=== PATIENT | female | born 1960 | race Caucasian/White ===

== ENCOUNTER 2018-09-28 12:49 | Inpatient (IN) | payer BC ==
[~2018-09-28] VITALS: Ht 154.9 cm; Wt 63.0 kg
[2018-09-28] MEDS ORDERED: SOD CHLORIDE 0.9% 500 ML IV STA (13:36)
--- NOTE | 2018-09-28 13:39 | ERD ---
ER Documentation Chief Complaint Chief Complaint mid-AP x5mo, occ NV. jaundice x2wks. 35lbs wt loss since April This is a 58-year-old female who was sent here by Dr. Grullon for admission for painless jaundice. The patient has had painless jaundice for 2 weeks. She says she has right upper quadrant pain for 2 weeks as well and has had some weight loss, she states because she cannot keep food down all the time. She has no coffee-ground emesis or bloody vomit. She says her stools are pale and does have some mild mid back pain ROS All systems reviewed and are negative except as per history of present illness. Medications Home Meds Reported Medications Atorvastatin Calcium* (Atorvastatin Calcium*) 20 Mg Tablet, 20 MG PO QHS, #30 TAB 09/28/18 Metoprolol Succinate* (Toprol XL*) 50 Mg Tab.er.24h, 50 MG PO DAILY, #30 TAB 09/28/18 Insulin Aspart* (Novolog Insulin Pen*) 100 Unit/Ml Soln, 0-12 SC .SLIDING SCALE AC, EA 09/28/18 Insulin Detemir (Levemir) 100 Unit/1 Ml Vial, 30 UNITS SC hs 09/28/18 Metformin* (Glucophage*) 1,000 Mg Tablet, 1000 MG PO BID, #60 TAB 09/28/18 Allergies Allergies: Coded Allergies: morphine (Verified Allergy, Unknown, 09/28/18) Uncoded Allergies: CONTRAST (Allergy, Unknown, 09/28/18) FmHx Family History: No coronary disease Physical Exam Vitals Vital Signs Date Temp Pulse Resp B/P (MAP) Pulse Ox O2 O2 Flow FiO2 Time Delivery Rate 09/28/18 68 18 122/74 99 Room Air 14:32 (90) 09/28/18 98.4 85 18 109/69 100 12:58 (82) Physical Exam Const: Well-developed, well-nourished Head: Atraumatic, normocephalic Eyes: Normal Conjunctiva, PERRLA, EOMI, normal sclera, no nystagmus ENT: Normal External Ears, Nose and Mouth, moist mucus membranes. Neck: Full range of motion. No meningismus, no lymphadenopathy. Resp: Clear to auscultation bilaterally, no wheezing, rhonchi, rales Cardio: Regular rate and rhythm, no murmurs, S1 S2 present Abd: Soft, tender right upper quadrant, non distended. Normal bowel sounds, no guarding or rebound, no pulsitile abdominal masses or bruits Skin: Jaundiced skin] Back: No midline or flank tenderness Ext: No cyanosis, or edema, FROM x 4, normal inspection, neurovascularly intact x 4 Neur: Awake and alert, STR 5/5 x 4, sensation intact x 4, no focal findings, cerebellum intact Psych: Normal Mood and Affect Result Diagram: 09/28/18 1428 09/28/18 1428 Results 24 hrs Laboratory Tests Test 09/28/18 14:28 White Blood Count 8.4 10^3/ul Red Blood Count 3.60 10^6/ul Hemoglobin 10.7 g/dl Hematocrit 32.4 % Mean Corpuscular Volume 90.0 fl Mean Corpuscular Hemoglobin 29.7 pg Mean Corpuscular Hemoglobin Concent 33.0 g/dl Red Cell Distribution Width 15.6 % Platelet Count 541 10^3/UL Mean Platelet Volume 9.5 fl Immature Granulocytes % 0.900 % Neutrophils % 71.2 % Lymphocytes % 20.3 % Monocytes % 6.2 % Eosinophils % 0.8 % Basophils % 0.6 % Nucleated Red Blood Cells % 0.0 /100WBC Immature Granulocytes # 0.080 10^3/ul Neutrophils # 6.0 10^3/ul Lymphocytes # 1.7 10^3/ul Monocytes # 0.5 10^3/ul Eosinophils # 0.1 10^3/ul Basophils # 0.1 10^3/ul Nucleated Red Blood Cells # 0.0 10^3/ul Prothrombin Time 19.6 Sec Prothrombin Time Ratio 1.5 INR International Normalized Ratio 1.65 Activated Partial Thromboplast Time 43.1 Sec Sodium Level 139 mmol/L Potassium Level 3.9 mmol/L Chloride Level 104 mmol/L Carbon Dioxide Level 25 mmol/L Anion Gap 10 Blood Urea Nitrogen 13 mg/dl Creatinine 0.45 mg/dl Est Glomerular Filtrat Rate mL/min > 60 mL/min Glucose Level 157 mg/dl Calcium Level 9.1 mg/dl Total Bilirubin 4.4 mg/dl Direct Bilirubin 3.60 mg/dl Indirect Bilirubin 0.8 mg/dl Aspartate Amino Transf (AST/SGOT) 117 IU/L Alanine Aminotransferase (ALT/SGPT) 76 IU/L Alkaline Phosphatase 726 IU/L Total Protein 8.1 g/dl Albumin 3.3 g/dl Globulin 4.80 g/dl Albumin/Globulin Ratio 0.68 Lipase 220 U/L Current Medications Medications Dose Sig/Miriam Start Time Status Last (Trade) Ordered Route PRN Stop Time Admin Dose Reason Admin Sodium 500 ml @ Q1H STAT 09/28/18 DC 09/28/18 Chloride 500 mls/hr IV 13:36 09/28/18 14:29 14:35 25 mg ONCE ONCE 09/28/18 DC 09/28/18 Diphenhydrami IV 16:00 09/28/18 15:39 ne HCl 16:01 (Benadryl) Procedures/MDM PROCEDURE: Right upper quadrant sonogram CLINICAL INDICATION: Pain TECHNIQUE: Transabdominal scans and Doppler images are reviewed COMPARISON: None FINDINGS: The liver is enlarged measuring 19 cm with mild increased echogenicity correlate with fatty changes. The pancreas is obscured by overlying gas artifact. There is no focal mass or biliary distension. Doppler assessment of the portal and hepatic vein visualize normal blood flow. Gallbladder is nondistended, limiting detail. There are no focal filling defects or wall thickening. The common bile duct measures 3.1 mm. The right kidney is normal in morphology and measures 10.6 x 3.4 x 4.6 cm. There is no obstructive uropathy or perinephric abnormality. IMPRESSION: 1. Hepatomegaly with fatty liver changes. RPTAT: HPPP Physician Deidra Date Time Electronically viewed and signed by Gloria Chang Physician on 09/28/2018 15:24 RP/ CC: HÉCTOR FAJARDO DO [id number] Dr Andino saw patient in the ER Pt refused MRCP ordered in he ER Will admit to Dr Craig Departure Diagnosis: Primary Impression: Jaundice Condition: Stable HÉCTOR FAJARDO DO Sep 28, 2018 13:39
[2018-09-28] MEDS ORDERED: METO-319 PO (14:29)
[2018-09-28] MEDS ORDERED: ATOR20TA38 PO (14:29)
[2018-09-28] MEDS ORDERED: NOVO3I SC (14:29)
[2018-09-28] MEDS ORDERED: MTF1000T PO (14:29)
[2018-09-28] MEDS ORDERED: LEVEM SC (14:29)
[2018-09-28] MEDS ORDERED: DIPHENHYDRAMINE 50 MG INJ IV ONE (16:00)
[2018-09-28] MEDS ORDERED: SOD CHLORIDE 0.9% 1,000 ML IV SCH (16:28)
[2018-09-28] MEDS ORDERED: ONDANSETRON 4 MG INJ IV PRN ×2 (16:30→19:00)
[2018-09-28] MEDS ORDERED: ACETAMINOPHEN 325 MG TAB PO PRN (16:30)
[2018-09-28 17:50] VITALS: BP 135/66; PULSE 69; RESP 18
--- NOTE | 2018-09-28 18:38 | HP ---
Date/Time of Note Date/Time of Note DATE: 09/28/18 TIME: 18:32 Assessment/Plan VTE Prophylaxis SCD applied (from Nsg): Yes Pharmacological prophylaxis: NA/contraindicated Pharm contraindication: liver dx Lines/Catheters IV Catheter Type (from Nrsg): Saline Lock Assessment/Plan Assessment/Plan -New onset of Jaundice with elevated liver enzymes. Dr. Estrada is asked to see patient in gastroenterology consultation. Dr. Harris will be following in general surgery consultation. -Diabetes mellitus -Hypertension -Hyperlipidemia Further recommendations based on clinical course. Plan of care discussed with Dr. Rizzo. Result Diagram: 09/28/18 1428 09/28/18 1428 Results 24hrs Laboratory Tests Test 09/28/18 14:28 White Blood Count 8.4 Red Blood Count 3.60 L Hemoglobin 10.7 L Hematocrit 32.4 L Mean Corpuscular Volume 90.0 Mean Corpuscular Hemoglobin 29.7 Mean Corpuscular Hemoglobin Concent 33.0 Red Cell Distribution Width 15.6 H Platelet Count 541 H Mean Platelet Volume 9.5 Immature Granulocytes % 0.900 H Neutrophils % 71.2 Segmented Neutrophils % (Manual) 76 Lymphocytes % 20.3 Lymphocytes % (Manual) 14 L Monocytes % 6.2 Monocytes % (Manual) 8 Eosinophils % 0.8 Eosinophils % (Manual) 2 Basophils % 0.6 Nucleated Red Blood Cells % 0.0 Immature Granulocytes # 0.080 H Neutrophils # 6.0 Lymphocytes (Manual) 1.1 Lymphocytes # 1.7 Monocytes # 0.5 Monocytes # (Manual) 0.6 Eosinophils # 0.1 Basophils # 0.1 Nucleated Red Blood Cells # 0.0 Platelet Morphology Comment @See below Anisocytosis 2+ Macrocytosis 2+ Prothrombin Time 19.6 H Prothrombin Time Ratio 1.5 INR International Normalized Ratio 1.65 Activated Partial Thromboplast Time 43.1 H Sodium Level 139 Potassium Level 3.9 Chloride Level 104 Carbon Dioxide Level 25 Anion Gap 10 Blood Urea Nitrogen 13 Creatinine 0.45 Est Glomerular Filtrat Rate mL/min > 60 Glucose Level 157 Calcium Level 9.1 Total Bilirubin 4.4 H Direct Bilirubin 3.60 H Indirect Bilirubin 0.8 Aspartate Amino Transf (AST/SGOT) 117 H Alanine Aminotransferase (ALT/SGPT) 76 H Alkaline Phosphatase 726 H Total Protein 8.1 Albumin 3.3 Globulin 4.80 H Albumin/Globulin Ratio 0.68 Lipase 220 HPI/ROS Admit Date/Time Admit Date/Time Sep 28, 2018 at 16:29 Hx of Present Illness The patient is a 58-year-old female with history of hypertension hyperlipidemia and diabetes. Patient was evaluated in Dr. Harris office sent to emergency room for painless jaundice. Patient developed jaundice of the last 2- weeks, patient is also complaining of 5 months of epigastric abdominal pain and 35 pounds of weight lost since April. Patient denies any fever denies any chest pain denies shortness of breath patient denies any nausea vomiting diarrhe a. Patient underwent gallbladder ultrasound which revealed hepatomegaly with fatty liver changes. ROS 12 point review of system is negative except for what mentioned in HPI PMH/Family/Social Past Medical History Medical History: diabetes, high cholesterol, hypertension Medications Current Medications Sodium Chloride 1,000 ml @ 80 mls/hr [id number] IV ; Start 09/28/18 at 16:28; Stop 09/29/18 at 04:57 Ondansetron HCl (Zofran Inj) 4 mg BRIDGE ORDER PRN IV NAUSEA/VOMITING; Start 09/28/18 at 16:30; Stop 09/29/18 at 16:29 Acetaminophen (Tylenol Tab) 650 mg ER BRIDGE PRN PO .MILD PAIN 1-3 OR TEMP; Start 09/28/18 at 16:30; Stop 09/29/18 at 16:29 Coded Allergies: morphine (Verified Allergy, Unknown, 09/28/18) Uncoded Allergies: CONTRAST (Allergy, Unknown, 09/28/18) Past Surgical History Past Surgical Hx: other (Status post right eye surgery, s/p ERCP and stent placement in april 2018) Family History Significant Family History: no pertinent family hx Social History Alcohol Use: none Smoking Status: Current every day smoker Drug Use: none Exam/Review of Systems Vital Signs Vitals Vital Signs Date Temp Pulse Resp B/P (MAP) Pulse Ox O2 O2 Flow FiO2 Time Delivery Rate 09/28/18 98.4 81 18 138/68 99 Room Air 17:05 (91) Exam Constitutional: alert, oriented Head: normocephalic Neck: supple Respiratory: clear to auscultation Cardiovascular: nl pulses Gastrointestinal: soft, tender (Mid upper abdomen) Musculoskeletal: nl extremities to inspection Extremities: normal pulses EDWIN OCHOA Sep 28, 2018 18:38
[2018-09-28] MEDS ORDERED: GLUCAGON 1 MG INJ IM PRN (19:00)
[2018-09-28] MEDS ORDERED: GLUCOSE GEL 15 GRAM TUBE BUCCAL PRN (19:00)
[2018-09-28] MEDS ORDERED: GLUCOSE GEL 15 GRAM TUBE PO PRN ×2 (19:00)
[2018-09-28] MEDS ORDERED: DEXTROSE 50% 50 ML SYRINGE IV PRN (19:00)
[2018-09-28 20:52] VITALS: BP 132/65; PULSE 56; RESP 20
[2018-09-28 21:00] VITALS: Ht 154.9 cm; Wt 63.0 kg
[2018-09-28] MEDS: INSULIN ASPART [NOVOLOG] 3 ML PEN SC SCH (21:00)
[2018-09-28] MEDS: FAMOTIDINE 20 MG TAB PO SCH (22:35)
[2018-09-28] MEDS: INSULIN GLARGINE [LANTus] (100 UNITS/ML) SYG SC SCH (22:37)
[2018-09-28] MEDS: IBUPROFEN 600 MG TAB PO PRN (23:07)
[2018-09-29] MEDS: ACCU-CHEK XX SCH (02:00)
[2018-09-29 02:52] VITALS: BP 134/65; PULSE 56; RESP 20
[2018-09-29] MEDS: INSULIN ASPART [NOVOLOG] 3 ML PEN SC SCH ×4 (08:00→21:00)
[2018-09-29] MEDS: FAMOTIDINE 20 MG TAB PO SCH ×2 (08:36→21:04)
[2018-09-29] MEDS: METOPROLOL (XL) 50 MG TAB PO SCH (08:38)
[2018-09-29 08:39] VITALS: BP 129/60; PULSE 53; RESP 18
[2018-09-29] MEDS: DIPHENHYDRAMINE 25 MG CAP PO PRN ×2 (10:20→22:42)
[2018-09-29 14:28] VITALS: BP 132/62; PULSE 56; RESP 18
--- NOTE | 2018-09-29 15:12 | PREAC ---
Date/Time of Note Date/Time of Note DATE: 09/29/18 TIME: 15:08 Anesthesia Eval and Record Evaluation Time Pre-Procedure Interview DATE: 09/29/18 TIME: 15:08 Age 58 Sex female NPO: 8 hrs Preoperative diagnosis Jaundice Planned procedure ERCP W/ SPYGLASS Past Medical History Past Medical History: Includes Cardio: HTN, Dyslipidemia Endo: Diabetes Surgery & Anesthesia Issues No known issue Meds Anticoagulation: No Beta Tyron within 24 hr: No Reason Beta Tyron not given: Pt. not on B-Tyron Reported Medications Atorvastatin Calcium* (Atorvastatin Calcium*) 20 Mg Tablet, 20 MG PO QHS, #30 TAB 09/28/18 Metoprolol Succinate* (Toprol XL*) 50 Mg Tab.er.24h, 50 MG PO DAILY, #30 TAB 09/28/18 Insulin Aspart* (Novolog Insulin Pen*) 100 Unit/Ml Soln, 0-12 SC .SLIDING SCALE AC, EA 09/28/18 Insulin Detemir (Levemir) 100 Unit/1 Ml Vial, 30 UNITS SC hs 09/28/18 Metformin* (Glucophage*) 1,000 Mg Tablet, 1000 MG PO BID, #60 TAB 09/28/18 Current Medications Ondansetron HCl (Zofran Inj) 4 mg Q6H PRN IV NAUSEA/VOMITING; Start 09/28/18 at 19:00 Ibuprofen (Motrin) 600 mg Q6H PRN PO .PAIN 1-3 Last administered on 09/28/18at 23:07; Admin Dose 600 MG; Start 09/28/18 at 19:00 Famotidine (Pepcid) 20 mg Q12 PO Last administered on 09/29/18at 08:36; Admin Dose 20 MG; Start 09/28/18 at 21:00 Metoprolol Succinate (Toprol Xl) 50 mg DAILY PO Last administered on 09/29/18at 08:38; Admin Dose 50 MG; Start 09/29/18 at 09:00 Diagnostic Test (Pha) (Accu-Chek) 1 ea 02 XX ; Start 09/29/18 at 02:00 Insulin Glargine (Lantus) 30 units DAILY@2000 SC Last administered on 09/28/18at 22:37; Admin Dose 30 UNITS; Start 09/28/18 at 20:00 Insulin Aspart (Novolog Insulin Pen) NOVOLOG *MILD* ALGORITHM WITH MEALS BEDTIME SC Last administered on 09/29/18at 11:54; Admin Dose 2 UNIT; Start 09/28/18 at 21:00 Miscellaneous Information 1 ea NOTE XX ; Start 09/28/18 at 19:00 Glucose (Glutose) 15 gm Q15M PRN PO DECREASED GLUCOSE; Start 09/28/18 at 19:00 Glucose (Glutose) 22.5 gm Q15M PRN PO DECREASED GLUCOSE; Start 09/28/18 at 19:00 Dextrose (D50w Syringe) 25 ml Q15M PRN IV DECREASED GLUCOSE; Start 09/28/18 at 19:00 Dextrose (D50w Syringe) 50 ml Q15M PRN IV DECREASED GLUCOSE; Start 09/28/18 at 19:00 Glucagon (Glucagen) 1 mg Q15M PRN IM DECREASED GLUCOSE; Start 09/28/18 at 19:00 Glucose (Glutose) 15 gm Q15M PRN BUCCAL DECREASED GLUCOSE; Start 09/28/18 at 19:00 Diphenhydramine HCl (Benadryl) 25 mg Q6H PRN PO ITCHING Last administered on 09/29/18at 10:20; Admin Dose 25 MG; Start 09/28/18 at 23:30 Meds reviewed: Yes Allergies Coded Allergies: morphine (Verified Allergy, Unknown, 09/28/18) Uncoded Allergies: CONTRAST (Allergy, Unknown, 09/28/18) Allergies Reviewed: Yes Labs/Studies Labs Reviewed: Reviewed by anesthesiologist Result Diagram: 09/29/18 0451 09/29/18 0451 Laboratory Tests 09/29/18 04:51 test: N/A Pre-procedure Exam Last vitals Vital Signs Date Temp Pulse Resp B/P (MAP) Pulse Ox O2 O2 Flow FiO2 Time Delivery Rate 09/29/18 97.9 56 18 132/62 98 Room Air 14:28 (85) Airway: Adequate mouth opening Mallampati: Mallampati II Teeth: Normal Lung: Normal Heart: Normal ASA Physical Status ASA physical status: 3 Emergency: None Planned Anesthetic General/MAC: ETT Pre-operative Attestations Prior to commencing anesthesia and surgery, the patient was re-evaluated, there was verification of: *The patient's identity *The results of appropriate recent lab work and preoperative vital signs *The above evaluation not changing prior to induction *Anesthetic plan, risk benefits, alternative and complications discussed with patient/family; questions answered; patient/family understands, accepts and wishes to proceed. LEONEL GARCIA Sep 29, 2018 15:12
--- NOTE | 2018-09-29 16:20 | PN ---
Date/Time of Note Date/Time of Note DATE: 09/29/18 TIME: 16:17 Assessment/Plan VTE Prophylaxis Risk score (from [facility] [place])>0 risk: 6 SCD applied (from [facility] [place]): Yes Pharmacological prophylaxis: NA/contraindicated Pharm contraindication: liver dx Lines/Catheters IV Catheter Type (from [facility]): Saline Lock Assessment/Plan Hospital Course No acute events overnight patient is awake alert denies any nausea and vomiting, patient will undergo ERCP procedure tomorrow. Assessment/Plan -New onset of Jaundice. Dr. Estrada is following in gastroenterology consultation. Dr. Harris and Dr Main are following in general surgery consultation. -Hx of ERCP and stent placement in April 2018 at another facility. -Diabetes mellitus -Hypertension -Hyperlipidemia Further recommendations based on clinical course. Plan of care discussed with Dr. Rizzo. Result Diagram: 09/29/18 0451 09/29/18 0451 Results 24hrs Laboratory Tests Test 09/28/18 22:33 09/29/18 04:51 09/29/18 08:35 09/29/18 11:43 Bedside Glucose 159 98 195 White Blood Count 7.3 Red Blood Count 3.59 L Hemoglobin 10.8 L Hematocrit 33.0 L Mean Corpuscular Volume 91.9 Mean Corpuscular 30.1 Hemoglobin Mean Corpuscular 32.7 Hemoglobin Concent Red Cell Distribution 16.1 H Width Platelet Count 517 H Mean Platelet Volume 10.0 Immature Granulocytes % 0.700 H Neutrophils % 69.6 Lymphocytes % 19.7 Monocytes % 8.0 Eosinophils % 1.4 Basophils % 0.6 Nucleated Red Blood 0.0 Cells % Immature Granulocytes # 0.050 H Neutrophils # 5.1 Lymphocytes # 1.4 Monocytes # 0.6 Eosinophils # 0.1 Basophils # 0.0 Nucleated Red Blood 0.0 Cells # Sodium Level 145 H Potassium Level 4.5 Chloride Level 106 Carbon Dioxide Level 26 Anion Gap 13 Blood Urea Nitrogen 11 Creatinine 0.53 Est Glomerular Filtrat > 60 Rate mL/min Glucose Level 93 # Hemoglobin A1c 6.1 H Calcium Level 9.3 Total Bilirubin 4.8 H Direct Bilirubin 3.80 H Indirect Bilirubin 1.0 Aspartate Amino 109 H Transf (AST/SGOT) Alanine 76 H Aminotransferase (ALT/SG PT) Alkaline Phosphatase 784 H Total Protein 8.3 H Albumin 3.2 L Globulin 5.10 H Albumin/Globulin Ratio 0.62 Triglycerides Level 381 H Cholesterol Level 276 H LDL Cholesterol, 179 Calculated HDL Cholesterol 21 L Cholesterol/HDL Ratio 13.1 Exam/Review of Systems Exam Vitals Vital Signs Date Temp Pulse Resp B/P (MAP) Pulse Ox O2 O2 Flow FiO2 Time Delivery Rate 09/29/18 97.9 56 18 132/62 98 Room Air 14:28 (85) Intake and Output 09/28/18 09/28/18 09/29/18 1515:00 23:00 07:00 IntakeIntake Total 500 ml BalanceBalance 500 ml Constitutional: alert, oriented, other (jaundiced) Respiratory: clear to auscultation Cardiovascular: nl pulses Gastrointestinal: soft, tender Musculoskeletal: nl extremities to inspection Extremities: normal pulses Neurological: nl mental status Results Results 24hrs Laboratory Tests Test 09/28/18 22:33 09/29/18 04:51 09/29/18 08:35 09/29/18 11:43 Bedside Glucose 159 98 195 White Blood Count 7.3 Red Blood Count 3.59 L Hemoglobin 10.8 L Hematocrit 33.0 L Mean Corpuscular Volume 91.9 Mean Corpuscular 30.1 Hemoglobin Mean Corpuscular 32.7 Hemoglobin Concent Red Cell Distribution 16.1 H Width Platelet Count 517 H Mean Platelet Volume 10.0 Immature Granulocytes % 0.700 H Neutrophils % 69.6 Lymphocytes % 19.7 Monocytes % 8.0 Eosinophils % 1.4 Basophils % 0.6 Nucleated Red Blood 0.0 Cells % Immature Granulocytes # 0.050 H Neutrophils # 5.1 Lymphocytes # 1.4 Monocytes # 0.6 Eosinophils # 0.1 Basophils # 0.0 Nucleated Red Blood 0.0 Cells # Sodium Level 145 H Potassium Level 4.5 Chloride Level 106 Carbon Dioxide Level 26 Anion Gap 13 Blood Urea Nitrogen 11 Creatinine 0.53 Est Glomerular Filtrat > 60 Rate mL/min Glucose Level 93 # Hemoglobin A1c 6.1 H Calcium Level 9.3 Total Bilirubin 4.8 H Direct Bilirubin 3.80 H Indirect Bilirubin 1.0 Aspartate Amino 109 H Transf (AST/SGOT) Alanine 76 H Aminotransferase (ALT/SG PT) Alkaline Phosphatase 784 H Total Protein 8.3 H Albumin 3.2 L Globulin 5.10 H Albumin/Globulin Ratio 0.62 Triglycerides Level 381 H Cholesterol Level 276 H LDL Cholesterol, 179 Calculated HDL Cholesterol 21 L Cholesterol/HDL Ratio 13.1 Medications Medication Current Medications Ondansetron HCl (Zofran Inj) 4 mg Q6H PRN IV NAUSEA/VOMITING; Start 09/28/18 at 19:00 Ibuprofen (Motrin) 600 mg Q6H PRN PO .PAIN 1-3 Last administered on 09/28/18at 23:07; Admin Dose 600 MG; Start 09/28/18 at 19:00 Famotidine (Pepcid) 20 mg Q12 PO Last administered on 09/29/18at 08:36; Admin Dose 20 MG; Start 09/28/18 at 21:00 Metoprolol Succinate (Toprol Xl) 50 mg DAILY PO Last administered on 09/29/18 08:38; Admin Dose 50 MG; Start 09/29/18 at 09:00 Diagnostic Test (Pha) (Accu-Chek) 1 ea 02 XX ; Start 09/29/18 at 02:00 Insulin Glargine (Lantus) 30 units DAILY@2000 SC Last administered on 09/28/18at 22:37; Admin Dose 30 UNITS; Start 09/28/18 at 20:00 Insulin Aspart (Novolog Insulin Pen) NOVOLOG *MILD* ALGORITHM WITH MEALS BEDTIME SC Last administered on 09/29/18at 11:54; Admin Dose 2 UNIT; Start 09/28/18 at 21:00 Miscellaneous Information 1 ea NOTE XX ; Start 09/28/18 at 19:00 Glucose (Glutose) 15 gm Q15M PRN PO DECREASED GLUCOSE; Start 09/28/18 at 19:00 Glucose (Glutose) 22.5 gm Q15M PRN PO DECREASED GLUCOSE; Start 09/28/18 at 19:00 Dextrose (D50w Syringe) 25 ml Q15M PRN IV DECREASED GLUCOSE; Start 09/28/18 at 19:00 Dextrose (D50w Syringe) 50 ml Q15M PRN IV DECREASED GLUCOSE; Start 09/28/18 at 19:00 Glucagon (Glucagen) 1 mg Q15M PRN IM DECREASED GLUCOSE; Start 09/28/18 at 19:00 Glucose (Glutose) 15 gm Q15M PRN BUCCAL DECREASED GLUCOSE; Start 09/28/18 at 19:00 Diphenhydramine HCl (Benadryl) 25 mg Q6H PRN PO ITCHING Last administered on 09/29/18at 10:20; Admin Dose 25 MG; Start 09/28/18 at 23:30 EDWIN OCHOA Sep 29, 2018 16:20
[2018-09-29] MEDS: IBUPROFEN 600 MG TAB PO PRN (17:36)
[2018-09-29] MEDS ORDERED: PHYTONADIONE 10 MG/ML INJ SC STA (19:05)
--- NOTE | 2018-09-29 19:45 | CONS ---
DATE OF ADMISSION: 09/28/2018 DATE OF CONSULTATION: HISTORY OF PRESENT ILLNESS: The patient is a 58-year-old female with a history of hypertension, diab etes mellitus, dyslipidemia, was sent from Dr. Harris office to the ER for jaundice and significant we ight loss. Patient lost 35 pounds. She denies of any fever, no chills. No or ADMIN PROG COORD problem. No G I bleeding. No abdominal pain. REVIEW OF SYSTEMS: Otherwise negative. PAST MEDICAL HISTORY: I reviewed her chart extensively. She had a EUS, ERCP and stenting done at [facility]. During the process of ERCP, SpyGlass was done. SpyBite was obtained and she had atypical cells. There was a stricture in the common hepatic duct and plastic stent was placed. Cystic duct was blocked and the cytology came as atypical cells. The patient had a 2 MRI done. Gall bladder ultrasound done. Ultrasound just showed fatty liver. Questionable lesion in the liver. SOCIAL HISTORY: She smokes on a regular basis. No alcohol, no recreational drugs. PHYSICAL EXAMINATION: GENERAL: Alert, awake, not in distress. VITAL SIGNS: Stable. HEENT: Unremarkable. NECK: Supple. No thyromegaly, no lymphadenopathy. CARDIOVASCULAR SYSTEM: No murmur, gallop or click. LUNGS: Clear. ABDOMEN: Benign. EXTREMITIES: No edema. CENTRAL NERVOUS SYSTEM: Grossly within normal limits. LABORATORY DATA: Hematocrit is 32. WBC is within normal limits. Her bilirubin was 4.8, I do not collins ve previous bilirubin. Alkaline phosphatase was 784. SGOT and SGPT mildly elevated. Triglyceride a lso was elevated at 381. Hemoglobin A1c was 6.1. INR was reported as 1.65. IMPRESSION 1. Abnormal LFT with significant weight loss, most probably related to her either gallbladder or cho langiocarcinoma. 2. Abnormal LFT could be secondary to mets in the liver. Again, the blockage of the stent cannot be absolutely ruled out. 3. Diabetes mellitus. 4. Hypertension. 5. Nicotine usage. PLAN: At this point, is to correct the coagulopathy. We will get a HIDA scan to look at the patency by a stent. We will do liver biopsy to make sure there is no mets in the liver. We will also get o ncology consult. I ordered vitamin K to correct the coagulopathy. If INR is still prolonged, we thanh l do ____. This case was discussed with Dr. Santy Main and I have reviewed all the paperwork exte nsively. Dictated By: REBECCA DODGE/ROSALIE Conf#: [id number] DID#: [id number] CC: MARY ENGLE MD;*EndCC*
[2018-09-29 20:18] VITALS: BP 129/60; PULSE 59; RESP 18
--- NOTE | 2018-09-29 20:23 | CONS ---
DATE OF ADMISSION: 09/28/2018 DATE OF CONSULTATION: 09/29/2018 TYPE OF CONSULTATION: Surgical. REQUESTING: Medical Service. REASON FOR CONSULTATION: Jaundice, possible tumor in the biliary tree. Thank you Dr. Engle for consultation. Actually this patient to begin was referred to the emergency room by Dr. Harris from his office for evaluation and possible management of cause of the jaundice. The patient has been suffering for past 2 to 3 weeks. HISTORY OF PRESENT ILLNESS: The patient actually complains of jaundice and itching for about 3 weeks and abdominal epigastric pain, which has been aggravated in the past 2 to 3 weeks, but has been going on for about 4, 5 or 6 months. PAST MEDICAL HISTORY: Positive for diabetes mellitus. The patient is on insulin and metformin, hypertension which the patient is taking 2 medications for that, and history of dyslipidemia. FAMILY HISTORY: Unremarkable. Negative for cancer. ALLERGIES: MORPHINE AND CONTRAST MATERILA. The patient states that after getting contrast material she gets itching for about 1 week. MEDICATIONS: Please refer to reconciliation list. PHYSICAL EXAMINATION: GENERAL: The patient is obviously jaundiced. SKIN: The skin is loose. HEENT: Sclerae are yellowish. EYES: Pupils equally round, reactive to light and accommodative. Extraocular muscle full range of motion. NECK: Trachea is midline. No thyroid enlargement. No adenopathy. CHEST: Symmetrical expansion. HEART: Regular. LUNGS: Clear. ABDOMEN: Not distended, is soft. In the epigastric area, there is tenderness, soft, mild pressure. Question, there is a mass in the epigastric area the patient by taking deep breaths. One can feel probably in the right upper quadrant medial side and some fullness can be felt. LABORATORY DATA: On admission, WBC was 8400, hemoglobin 10.7, hematocrit 32.4. Platelet count is 541. She is fine. Differential is 71% neutrophils, which is normal. Anisocytosis and macrocytosis is present in the Hematology. Chemistry on admission yesterday sodium, potassium, BUN, creatinine is normal. Calcium is 9.1. Total bilirubin is 4.4. Direct bilirubin is 3.6, which is high. AST is 117, which is high. AST is 76. Alkaline phosphatase is very high 726. Globulin is 4.80, which is high. Albumin is 3.3. Lipase is 220, which is normal. Hemoglobin A1c today is 6.1. Bilirubin slightly has increased to 4.8 today. Globulin has increased to 5.1, which is higher than yesterday. Triglycerides is 381, which is high. Cholesterol is high at 276. HDL cholesterol is very low at 21. IMAGING STUDIES: Imaging was done yesterday. Ultrasound of gallbladder shows hepatomegaly with fatty liver changes. No other abnormalities was reported. Abdominal x-ray was ordered and was done today showed nonspecific bowel gas pattern without evidence of obstruction. Moderate to large amount of stool in the colon. A stent projecting over the right abdomen which may represent the CBD stent. 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 She stated that in 03/2018, she had tachycardia and palpitation and for that reason was being seen by her physician and PCP, and PCP notified her that there is some abnormality in the liver enzymes. Therefore, the patient was referred to the [facility] and over there was admitted and they did some more investigation at that time, which is in 04/27/2018. An endoscopic ultrasound was performed by Dr. Olivera in this patient and the following was reported: 1. Small and contracted gallbladder with a sludge. 2. Thick wall and no visible gallbladder tumor. 3. Abnormal common hepatic duct without dilatation has a thick wall and no stone disease. 4. Fatty liver. Therefore, ERCP was recommended, and 2 days before that a CT scan of the abdomen and pelvis was done which showed irregularities of gallbladder with likely mass and adjacent common hepatic duct enhancing wall, suspicious for malignancy or cholangitis. That is why the patient underwent endoscopic ultrasound and then after that they recommended ERCP. An ERCP was performed by Dr. Perez and his daughter that time and he did a sphincterotomy and brushing of the narrowing area of the common hepatic duct and placement of a stent while passing this narrowing area. Of course, balloon dilatation also has been done and a biliary stent was placed. Before that cholangiography was performed and biopsy of the common hepatic duct was performed. Later on pathology report atypical cells present. No malignancy was identified. On the ERCP, it showed that the cystic duct was occluded question of gallbladder mass. Eventually, on the 04/29/2018, the patient was discharged home with the diagnosis of history of high blood pressure and history of diabetes mellitus, and status post ERCP. Endoscopy showed no possible malignancy of the common hepatic duct, possible malignancy of the gallbladder. The patient was supposed to be seen by Dr. Olivera after 1 week, but reportedly Dr. Olivera is not taking the kind of insurance that the patient has, therefore, the patient was left to the care of the primary care physician. The primary care physician referred the patient to Dr. Harris' office and Dr. Harris in 07/2018, send the patient for MRCP. MRCP on 07/27/2018 was performed and is reported gallstone, contracted gallbladder, left main hepatic duct 6 mm slightly dilated, comparing to before which was 2 mm, a small filling defects in the left main hepatic duct, possibly pneumobilia due to presence of a stent. Then, on the 08/10/2018, an MRI was performed per request of Dr. Harris that showed 2 possible small ring enhancing lesions seen in adjacent to the gallbladder fossa, possible metastatic lesions. Then, a PET CT scan was performed on 09/20/2018, and it was read with comparison to the MRI and MRCP and PET CT scan which had been done in 2018. The following reports there is a small anterior cardiophrenic lymph node 1.1 cm in size. CONCLUSION: 1. Persistent abnormal contrast accumulation into either the gallbladder or gallbladder fossa consistent with neoplastic process. 2. Abnormal FDG which is the contrast accumulation involving the anterior aspect of the liver right and left lobes, worrisome for neoplastic infiltration of the liver. 3. Small anterior cardiophrenic lymph node, which is a new finding may be metastatic in nature. A stent in place. But the patient states that she never noticed jaundice before 3 weeks ago and actually she claims and states that since they did an ERCP and sphincterotomy and they put a stent for her, she got worse and she has more pain in the epigastric and right upper quadrant. She has lost her appetite and she cannot eat even anymore that much of food. She has lost 35 pounds of weight. Therefore, at this time we are having a patient who has a stent and even though with a stent she has developed jaundice. This raises the question of whether the stent has fallen off. The recent PET CT shows that the stent is in place and also a simple KUB showed the stent is in place almost. Therefore, the stent could be clogged or could be infiltration of some kind of infiltrative process and lesion in the whole liver is causing the obstruction of the micro biliary duct and causing obstructive type of jaundice. Therefore, we recommend that the following to be done for this patient: 1. GI consultation. 2. HIDA scan. 3. MRCP. 4. I think the patient needs a biopsy of the liver also be done to find out if what kind of pathology we are getting in the liver itself. I discussed the whole process and findings of this patient with Dr. Harris, and he also agrees with the plan of action. Also, it should be mentioned that the patient's PT and PTT is very abnormal, and our colleague, Dr. Estrada, has seen the patient and apparently has scheduled the patient for ERCP. I will call him and let him know that the patient's PT and PTT is abnormal. Thank you again for consultation. We are going to continue to follow the surgical team, follow up this patient to find out exactly what is the pathology involving the liver and biliary tree system in this patient and what surgically can be done if anything for this patient. Dictated By: RENITA VIRK MD PS/NTS Conf#: [id number] DID#: [id number] CC: MARY ENGLE MD;*EndCC* MTDD
[2018-09-29] MEDS: INSULIN GLARGINE [LANTus] (100 UNITS/ML) SYG SC SCH (21:08)
[2018-09-30] MEDS: ACCU-CHEK XX SCH (02:00)
[2018-09-30 02:10] VITALS: BP 138/71; PULSE 65; RESP 18
[2018-09-30] MEDS: INSULIN ASPART [NOVOLOG] 3 ML PEN SC SCH ×5 (08:00→20:39)
[2018-09-30] MEDS: FAMOTIDINE 20 MG TAB PO SCH ×2 (08:32→20:38)
[2018-09-30] MEDS: METOPROLOL (XL) 50 MG TAB PO SCH (08:32)
[2018-09-30 08:37] VITALS: BP 127/64; PULSE 60; RESP 18
--- NOTE | 2018-09-30 10:37 | PN ---
Date/Time of Note Date/Time of Note DATE: 09/30/18 TIME: 10:37 Assessment/Plan VTE Prophylaxis Risk score (from Ns)>0 risk: 1 SCD applied (from [facility] [place]): Yes Pharmacological prophylaxis: other Pharm contraindication: other Lines/Catheters IV Catheter Type (from [facility]): Saline Lock Assessment/Plan Assessment/Plan -Jaundice. - per Dr. Estrada in gastroenterology consultation- for HIDA scan today; fu results - per Dr. Harris in general surgery consultation. - Abnormal Abdominal MRI - Poorly defined mass-like area is seen in the region of the biliary confluence, concerning for neoplasm, suboptimally evaluated without IV contrast. This mass causes obstruction at the level of the biliary confluence, with mild to moderate dilatation of intrahepatic biliary ducts proximally. - Gallbladder is not well visualized. Contrast enhanced CT is recommended for further evaluation. - Oncology consultation appreciated -Diabetes mellitus - Glycemic control -Hypertension- stable -Hyperlipidemia Further recommendations based on clinical course. Plan of care discussed with Dr. Rizzo. Result Diagram: 09/29/1845009/29/18450 Results 24hrs Laboratory Tests Test 09/29/18 11:43 09/29/18 17:31 09/29/18 21:00 09/30/18 05:01 Bedside Glucose 195 184 161 Prothrombin Time 15.9 H Prothrombin Time Ratio 1.2 INR International 1.26 Normalized Ratio Activated 38.7 H Partial Thromboplast Time Test 09/30/18 08:34 Bedside Glucose 87 Subjective 24 Hr Interval Summary Free Text/Dictation -NAD - afebrile -off floor- gone for HIDA SCAN - no new events reported overnight - staff Exam/Review of Systems Exam Vitals Vital Signs Date Temp Pulse Resp B/P (MAP) Pulse Ox O2 O2 Flow FiO2 Time Delivery Rate 09/30/18 98.0 60 18 127/64 99 Room Air 08:37 (85) Intake and Output 09/29/18 09/29/18 09/30/18 1515:00 23:00 07:00 IntakeIntake Total 640 ml 860 ml BalanceBalance 640 ml 860 ml Results Results 24hrs Laboratory Tests Test 09/29/18 11:43 09/29/18 17:31 09/29/18 21:00 09/30/18 05:01 Bedside Glucose 195 184 161 Prothrombin Time 15.9 H Prothrombin Time Ratio 1.2 INR International 1.26 Normalized Ratio Activated 38.7 H Partial Thromboplast Time Test 09/30/18 08:34 Bedside Glucose 87 Medications Medication Current Medications Ondansetron HCl (Zofran Inj) 4 mg Q6H PRN IV NAUSEA/VOMITING; Start 09/28/18 at 19:00 Ibuprofen (Motrin) 600 mg Q6H PRN PO .PAIN 1-3 Last administered on 09/29/18 17:36; Admin Dose 600 MG; Start 09/28/18 at 19:00 Famotidine (Pepcid) 20 mg Q12 PO Last administered on 09/29/18 21:04; Admin Dose 20 MG; Start 09/28/18 at 21:00 Metoprolol Succinate (Toprol Xl) 50 mg DAILY PO Last administered on 09/29/18 08:38; Admin Dose 50 MG; Start 09/29/18 at 09:00 Insulin Glargine (Lantus) 30 units DAILY@2000 SC Last administered on 09/29/18 21:08; Admin Dose 30 UNITS; Start 09/28/18 at 20:00 Miscellaneous Information 1 ea NOTE XX ; Start 09/28/18 at 19:00 Glucose (Glutose) 15 gm Q15M PRN PO DECREASED GLUCOSE; Start 09/28/18 at 19:00 Glucose (Glutose) 22.5 gm Q15M PRN PO DECREASED GLUCOSE; Start 09/28/18 at 19:00 Dextrose (D50w Syringe) 25 ml Q15M PRN IV DECREASED GLUCOSE; Start 09/28/18 at 19:00 Dextrose (D50w Syringe) 50 ml Q15M PRN IV DECREASED GLUCOSE; Start 09/28/18 at 19:00 Glucagon (Glucagen) 1 mg Q15M PRN IM DECREASED GLUCOSE; Start 09/28/18 at 19:00 Glucose (Glutose) 15 gm Q15M PRN BUCCAL DECREASED GLUCOSE; Start 09/28/18 at 19:00 Diphenhydramine HCl (Benadryl) 25 mg Q6H PRN PO ITCHING Last administered on 09/29/18at 22:42; Admin Dose 25 MG; Start 09/28/18 at 23:30 Insulin Aspart (Novolog Insulin Pen) NOVOLOG *MILD* ALGORI... Q4 SC ; Start 09/30/18 at 09:00 MARYAN GILMAN Sep 30, 2018 10:37
[2018-09-30] MEDS ORDERED: DEXTROSE 5%-0.45% NACL 1,000 ML IV SCH (11:00)
[2018-09-30 13:15] VITALS: BP 108/60; PULSE 77; RESP 18
--- NOTE | 2018-09-30 14:15 | RADRPT ---
Vent Rate: 56 bpm RR Interval: 0 msec MI Interval: 136 msec QRS Duration: 84 msec QT Interval: 414 msec QTC Interval: 399 msec P-R-T [place]: 49 - 11 - 24 degrees Sinus bradycardia Otherwise normal ECG Electronically Signed By: Sheldon Edwards
[2018-09-30] MEDS: DIPHENHYDRAMINE 25 MG CAP PO PRN (15:00)
--- NOTE | 2018-09-30 16:34 | CONS ---
Assessment/Plan Assessment/Plan Assessment/Plan (Daily) IMPRESSION 1. Abnormal LFT with significant weight loss, most probably related to her either gallbladder or cholangiocarcinoma. 2. Abnormal LFT could be secondary to mets in the liver. Again, the blockage of the stent cannot be absolutely ruled out. 3. Diabetes mellitus. 4. Hypertension. 5. Nicotine usage. Plan I discussed the case with Dr. Matteo Jefferson the liver lesions are too small for him to do the biopsy and this is not the reason for the patient's jaundice. HIDA scan was positive no contrast was going into the small bowel or into the stent indicating that the stent is probably blocked. Patient is scheduled for ERCP removal of the stent spyglass and possible biopsy to clinch the diagnosis. Once we get confirmatory diagnosis then will need oncology consult. Consultation Date/Type/Reason Admit Date/Time Sep 28, 2018 at 16:29 Initial Consult Date Date/Time of Note DATE: 09/30/18 TIME: 16:33 24 HR Interval Summary Constitutional: no complaints, improved Exam/Review of Systems Exam Vitals Vital Signs Date Temp Pulse Resp B/P (MAP) Pulse Ox O2 O2 Flow FiO2 Time Delivery Rate 09/30/18 98.1 77 18 108/60 99 Room Air 13:15 (76) Intake and Output 09/29/18 09/29/18 09/30/18 1515:00 23:00 07:00 IntakeIntake Total 640 ml 860 ml BalanceBalance 640 ml 860 ml Constitutional: alert, oriented, well developed Psych: no complaints, nl mood/affect Head: normocephalic, atraumatic Eyes: nl conjunctiva, EOMI, nl lids, nl sclera, PERRL ENMT: nl external ears & nose, nl lips & teeth, nl nasal mucosa & septum Neck: supple, non-tender Respiratory: clear to auscultation, normal air movement Cardiovascular: regular rate and rhythm, nl pulses Gastrointestinal: soft, nl liver, spleen, non-tender Musculoskeletal: nl extremities to inspection, nl gait and stance Extremities: normal pulses Neurological: ENVIRONMENT ARTIST II-XII intact, nl mental status, nl speech, nl strength Skin: nl turgor; No rash or lesions Lymph: nl lymph nodes Results Result Diagram: 09/29/18 0451 09/29/18 0451 Results 24hrs Laboratory Tests Test 09/29/18 17:31 09/29/18 21:00 09/30/18 05:01 09/30/18 08:34 Bedside Glucose 184 161 87 Prothrombin Time 15.9 H Prothrombin Time Ratio 1.2 INR International 1.26 Normalized Ratio Activated 38.7 H Partial Thromboplast Time Test 09/30/18 13:20 Bedside Glucose 74 Medications Medication Current Medications Ondansetron HCl (Zofran Inj) 4 mg Q6H PRN IV NAUSEA/VOMITING; Start 09/28/18 at 19:00 Ibuprofen (Motrin) 600 mg Q6H PRN PO .PAIN 1-3 Last administered on 09/29/18at 17:36; Admin Dose 600 MG; Start 09/28/18 at 19:00 Famotidine (Pepcid) 20 mg Q12 PO Last administered on 09/29/18at 21:04; Admin Dose 20 MG; Start 09/28/18 at 21:00 Metoprolol Succinate (Toprol Xl) 50 mg DAILY PO Last administered on 09/29/18 08:38; Admin Dose 50 MG; Start 09/29/18 at 09:00 Insulin Glargine (Lantus) 30 units DAILY@2000 SC Last administered on 09/29/18at 21:08; Admin Dose 30 UNITS; Start 09/28/18 at 20:00 Miscellaneous Information 1 ea NOTE XX ; Start 09/28/18 at 19:00 Glucose (Glutose) 15 gm Q15M PRN PO DECREASED GLUCOSE; Start 09/28/18 at 19:00 Glucose (Glutose) 22.5 gm Q15M PRN PO DECREASED GLUCOSE; Start 09/28/18 at 19:00 Dextrose (D50w Syringe) 25 ml Q15M PRN IV DECREASED GLUCOSE; Start 09/28/18 at 19:00 Dextrose (D50w Syringe) 50 ml Q15M PRN IV DECREASED GLUCOSE; Start 09/28/18 at 19:00 Glucagon (Glucagen) 1 mg Q15M PRN IM DECREASED GLUCOSE; Start 09/28/18 at 19:00 Glucose (Glutose) 15 gm Q15M PRN BUCCAL DECREASED GLUCOSE; Start 09/28/18 at 19:00 Diphenhydramine HCl (Benadryl) 25 mg Q6H PRN PO ITCHING Last administered on 09/30/18at 15:00; Admin Dose 25 MG; Start 09/28/18 at 23:30 Diagnostic Test (Pha) (Accu-Chek) 1 02 XX ; Start 10/01/18 at 02:00 Insulin Aspart (Novolog Insulin Pen) NOVOLOG *MILD* ALGORITHM WITH MEALS BEDTIME SC ; Start 09/30/18 at 18:05 REBECCA HUSTON MD Sep 30, 2018 16:34
--- NOTE | 2018-09-30 18:06 | PN ---
DATE: 09/30/2018 SUBJECTIVE: No new event except that the patient had HIDA scan and MRCP done today. OBJECTIVE: GENERAL: Awake, alert, oriented, in no acute distress. Awaiting to be taken to the nuclear medicine for the first time for continuation of the pictures per protocol. VITAL SIGNS: Temperature 98, heart rate 60 to 77, respiration 18, blood pressure 127/64, saturation 99% on room air. LABORATORY DATA: No new labs done today. IMAGING: MRI was done late last night. The report is as follows: Impression: Poorly defined mass-like area is seen in the region of the biliary confluence, concerning for neoplasm, suboptimally evaluated without IV contrast. This mass causes obstruction at the level of the biliary confluence. There is mild to moderate dilatation of intrahepatic biliary ducts proximally. Gallbladder is not well visualized. Contrast-enhanced CT is recommended for further evaluation. It was read by at 8:00 today morning and then, patient had later HIDA scan performed and the report is as follows: No significant excretion noted from the liver up to 75 minutes. Followup imaging at 2 hours is recommended. Apparently after 2 hours, the patient was taken back to the nuclear medicine. Picture was taken, but the report is not yet in the computer. Per nurse, they have told the floor that the patient should be taken back to nuclear medicine tonight for the third time to take more pictures. Dr. Huston, the GI outplacement consultant, is on the case and he is planning to do ERCP on Wednesday. We discussed last night and yesterday with Dr. Huston in full detail about the patient and the suggestion was brought up to have the invasive radiology to do liver biopsy, but the nurse right now told me that Dr. Huston has said that he has cancelled the liver biopsy and we will find out what is the next plan except the ERCP. We will continue to follow the case on a daily basis. Dictated By: RENITA VIRK MD PS/NTS Conf#: [id number] DID#: [id number] CC: REBECCA HUSTON MD; MARY ENGLE MD;*EndCC* MTDD
[2018-09-30 20:20] VITALS: BP 120/58; PULSE 63; RESP 18
[2018-09-30] MEDS: INSULIN GLARGINE [LANTus] (100 UNITS/ML) SYG SC SCH (20:39)
[2018-09-30] MEDS: IBUPROFEN 600 MG TAB PO PRN (22:57)
[2018-10-01] MEDS: ACCU-CHEK XX SCH (01:14)
[2018-10-01] MEDS ORDERED: ACCU-CHEK XX SCH (02:00)
[2018-10-01 02:41] VITALS: BP 135/62; PULSE 53; RESP 18
[2018-10-01] MEDS: DEXTROSE 50% 50 ML SYRINGE IV PRN ×2 (07:21→08:38)
[2018-10-01] MEDS: INSULIN ASPART [NOVOLOG] 3 ML PEN SC SCH ×4 (08:00→20:28)
[2018-10-01 08:36] VITALS: BP 134/60; PULSE 58; RESP 16
[2018-10-01] MEDS: DIPHENHYDRAMINE 25 MG CAP PO PRN (09:27)
[2018-10-01] MEDS: METOPROLOL (XL) 50 MG TAB PO SCH (09:30)
[2018-10-01] MEDS: FAMOTIDINE 20 MG TAB PO SCH ×2 (09:30→20:29)
--- NOTE | 2018-10-01 11:41 | PN ---
Date/Time of Note Date/Time of Note DATE: 10/01/18 TIME: 11:40 Assessment/Plan VTE Prophylaxis Risk score (from Ns)>0 risk: 4 SCD applied (from Ns): Yes Pharmacological prophylaxis: LMWH Lines/Catheters IV Catheter Type (from [facility]): Saline Lock Assessment/Plan Hospital Course -Jaundice. - per Dr. Estrada in gastroenterology consultation- for HIDA scan today; fu results - per Dr. Harris in general surgery consultation. - Abnormal Abdominal MRI - Poorly defined mass-like area is seen in the region of the biliary confluence, concerning for neoplasm, suboptimally evaluated without IV contrast. This mass causes obstruction at the level of the biliary confluence, with mild to moderate dilatation of intrahepatic biliary ducts proximally. - Gallbladder is not well visualized. Contrast enhanced CT is recommended for further evaluation. - Oncology consultation appreciated -Diabetes mellitus - Glycemic control -Hypertension- stable -Hyperlipidemia Result Diagram: 10/01/1831 10/01/1831 Results 24hrs Laboratory Tests Test 09/30/18 13:20 09/30/18 17:18 09/30/18 20:37 10/01/18 05:31 Bedside Glucose 74 122 124 White Blood Count 6.4 Red Blood Count 3.24 L Hemoglobin 10.6 L Hematocrit 29.8 L Mean Corpuscular Volume 92.0 Mean Corpuscular 32.7 Hemoglobin Mean Corpuscular 35.6 Hemoglobin Concent Red Cell Distribution 16.5 H Width Platelet Count 470 H Mean Platelet Volume 10.3 Immature Granulocytes % 0.800 H Neutrophils % 66.2 Lymphocytes % 23.8 Monocytes % 7.8 Eosinophils % 1.1 Basophils % 0.3 Nucleated Red Blood 2.4 H Cells % Immature Granulocytes # 0.050 H Neutrophils # 4.2 Lymphocytes # 1.5 Monocytes # 0.5 Eosinophils # 0.1 Basophils # 0.0 Nucleated Red Blood 0.2 H Cells # Sodium Level 141 Potassium Level 3.7 Chloride Level 104 Carbon Dioxide Level 27 Anion Gap 10 Blood Urea Nitrogen 15 Creatinine 0.57 Est Glomerular Filtrat > 60 Rate mL/min Glucose Level 46 *L Calcium Level 8.9 Test 10/01/18 07:19 10/01/18 07:48 10/01/18 08:16 10/01/18 08:17 Bedside Glucose 59 L 110 67 L 62 L Test 10/01/18 08:40 10/01/18 09:29 10/01/18 09:55 10/01/18 11:34 Bedside Glucose 64 L 154 133 87 Subjective 24 Hr Interval Summary Free Text/Dictation Patient complain of chest pain but is reproduceable with pressure to chest Exam/Review of Systems Exam Vitals Vital Signs Date Temp Pulse Resp B/P (MAP) Pulse Ox O2 O2 Flow FiO2 Time Delivery Rate 10/01/18 97.6 58 16 134/60 100 Room Air 08:36 (84) Intake and Output 09/30/18 09/30/18 10/01/18 1515:00 23:00 07:00 IntakeIntake Total 175 ml 960 ml 1000 ml BalanceBalance 175 ml 960 ml 1000 ml Constitutional: well developed Head: normocephalic, atraumatic Neck: supple Respiratory: clear to auscultation Cardiovascular: regular rate and rhythm Gastrointestinal: soft, non-tender Extremities: normal pulses Results Results 24hrs Laboratory Tests Test 09/30/18 13:20 09/30/18 17:18 09/30/18 20:37 10/01/18 05:31 Bedside Glucose 74 122 124 White Blood Count 6.4 Red Blood Count 3.24 L Hemoglobin 10.6 L Hematocrit 29.8 L Mean Corpuscular Volume 92.0 Mean Corpuscular 32.7 Hemoglobin Mean Corpuscular 35.6 Hemoglobin Concent Red Cell Distribution 16.5 H Width Platelet Count 470 H Mean Platelet Volume 10.3 Immature Granulocytes % 0.800 H Neutrophils % 66.2 Lymphocytes % 23.8 Monocytes % 7.8 Eosinophils % 1.1 Basophils % 0.3 Nucleated Red Blood 2.4 H Cells % Immature Granulocytes # 0.050 H Neutrophils # 4.2 Lymphocytes # 1.5 Monocytes # 0.5 Eosinophils # 0.1 Basophils # 0.0 Nucleated Red Blood 0.2 H Cells # Sodium Level 141 Potassium Level 3.7 Chloride Level 104 Carbon Dioxide Level 27 Anion Gap 10 Blood Urea Nitrogen 15 Creatinine 0.57 Est Glomerular Filtrat > 60 Rate mL/min Glucose Level 46 *L Calcium Level 8.9 Test 10/01/18 07:19 10/01/18 07:48 10/01/18 08:16 10/01/18 08:17 Bedside Glucose 59 L 110 67 L 62 L Test 10/01/18 08:40 10/01/18 09:29 10/01/18 09:55 10/01/18 11:34 Bedside Glucose 64 L 154 133 87 Medications Medication Current Medications Ondansetron HCl (Zofran Inj) 4 mg Q6H PRN IV NAUSEA/VOMITING; Start 09/28/18 at 19:00 Ibuprofen (Motrin) 600 mg Q6H PRN PO .PAIN 1-3 Last administered on 09/30/18 22:57; Admin Dose 600 MG; Start 09/28/18 at 19:00 Famotidine (Pepcid) 20 mg Q12 PO Last administered on 10/01/18 09:30; Admin Dose 20 MG; Start 09/28/18 at 21:00 Metoprolol Succinate (Toprol Xl) 50 mg DAILY PO Last administered on 10/01/18 09:30; Admin Dose 50 MG; Start 09/29/18 at 09:00 Insulin Glargine (Lantus) 30 units DAILY@2000 SC Last administered on 09/30/18 20:39; Admin Dose 30 UNITS; Start 09/28/18 at 20:00 Miscellaneous Information 1 ea NOTE XX ; Start 09/28/18 at 19:00 Glucose (Glutose) 15 gm Q15M PRN PO DECREASED GLUCOSE; Start 09/28/18 at 19:00 Glucose (Glutose) 22.5 gm Q15M PRN PO DECREASED GLUCOSE; Start 09/28/18 at 19:00 Dextrose (D50w Syringe) 25 ml Q15M PRN IV DECREASED GLUCOSE Last administered on 10/01/18 08:38; Admin Dose 25 ML; Start 09/28/18 at 19:00 Dextrose (D50w Syringe) 50 ml Q15M PRN IV DECREASED GLUCOSE; Start 09/28/18 at 19:00 Glucagon (Glucagen) 1 mg Q15M PRN IM DECREASED GLUCOSE; Start 09/28/18 at 19:00 Glucose (Glutose) 15 gm Q15M PRN BUCCAL DECREASED GLUCOSE; Start 09/28/18 at 19:00 Diphenhydramine HCl (Benadryl) 25 mg Q6H PRN PO ITCHING Last administered on 10/01/18 09:27; Admin Dose 25 MG; Start 09/28/18 at 23:30 Diagnostic Test (Pha) (Accu-Chek) 1 ea 02 XX ; Start 10/01/18 at 02:00 Insulin Aspart (Novolog Insulin Pen) NOVOLOG *MILD* ALGORITHM WITH MEALS BEDTIME SC ; Start 09/30/18 at 18:05 JOÃO SANCHEZ Oct 01, 2018 11:41
--- NOTE | 2018-10-01 12:03 | CONS ---
Consultation Date/Type/Reason Admit Date/Time Interval HX- Patient sitting at the edge of bed, no acute distress, looks comfortable. IMPRESSION 1. Abnormal LFT with significant weight loss, most probably related to her either gallbladder or cholangiocarcinoma. 2. Abnormal LFT could be secondary to mets in the liver. Again, the blockage of the stent cannot be absolutely ruled out. 3. Diabetes mellitus. 4. Hypertension. 5. Nicotine usage. Plan Per Dr jose antonio Jefferson-liver lesions are too small to do the biopsy and this is not the reason for the patient's jaundice. HIDA scan was positive no contrast was going into the small bowel or into the stent indicating that the stent is probably blocked. Patient is scheduled for ERCP removal of the stent spyglass and possible biopsy to clinch the diagnosis. Once we get confirmatory diagnosis then will need oncology consult. Initial Consult Date Date/Time of Note DATE: 10/01/18 TIME: 12:00 Exam/Review of Systems Exam Vitals Vital Signs Date Temp Pulse Resp B/P (MAP) Pulse Ox O2 O2 Flow FiO2 Time Delivery Rate 10/01/18 97.6 58 16 134/60 100 Room Air 08:36 (84) Intake and Output 09/30/18 09/30/18 10/01/18 1515:00 23:00 07:00 IntakeIntake Total 175 ml 960 ml 1000 ml BalanceBalance 175 ml 960 ml 1000 ml Constitutional: alert, oriented Psych: no complaints Head: normocephalic, atraumatic ENMT: nl external ears & nose Neck: supple Respiratory: clear to auscultation Cardiovascular: regular rate and rhythm Gastrointestinal: soft, non-tender Musculoskeletal: nl extremities to inspection Extremities: normal pulses Neurological: CHECK SERVICES CLERK II-XII intact Skin: nl turgor Results Result Diagram: 10/01/1831 10/01/1831 Results 24hrs Laboratory Tests Test 09/30/18 13:20 09/30/18 17:18 09/30/18 20:37 10/01/18 05:31 Bedside Glucose 74 122 124 White Blood Count 6.4 Red Blood Count 3.24 L Hemoglobin 10.6 L Hematocrit 29.8 L Mean Corpuscular Volume 92.0 Mean Corpuscular 32.7 Hemoglobin Mean Corpuscular 35.6 Hemoglobin Concent Red Cell Distribution 16.5 H Width Platelet Count 470 H Mean Platelet Volume 10.3 Immature Granulocytes % 0.800 H Neutrophils % 66.2 Lymphocytes % 23.8 Monocytes % 7.8 Eosinophils % 1.1 Basophils % 0.3 Nucleated Red Blood 2.4 H Cells % Immature Granulocytes # 0.050 H Neutrophils # 4.2 Lymphocytes # 1.5 Monocytes # 0.5 Eosinophils # 0.1 Basophils # 0.0 Nucleated Red Blood 0.2 H Cells # Sodium Level 141 Potassium Level 3.7 Chloride Level 104 Carbon Dioxide Level 27 Anion Gap 10 Blood Urea Nitrogen 15 Creatinine 0.57 Est Glomerular Filtrat > 60 Rate mL/min Glucose Level 46 *L Calcium Level 8.9 Test 10/01/18 07:19 10/01/18 07:48 10/01/18 08:16 10/01/18 08:17 Bedside Glucose 59 L 110 67 L 62 L Test 10/01/18 08:40 10/01/18 09:29 10/01/18 09:55 10/01/18 11:34 Bedside Glucose 64 L 154 133 87 Medications Medication Current Medications Ondansetron HCl (Zofran Inj) 4 mg Q6H PRN IV NAUSEA/VOMITING; Start 09/28/18 at 19:00 Ibuprofen (Motrin) 600 mg Q6H PRN PO .PAIN 1-3 Last administered on 09/30/18at 22:57; Admin Dose 600 MG; Start 09/28/18 at 19:00 Famotidine (Pepcid) 20 mg Q12 PO Last administered on 10/01/18at 09:30; Admin Dose 20 MG; Start 09/28/18 at 21:00 Metoprolol Succinate (Toprol Xl) 50 mg DAILY PO Last administered on 10/01/18at 09:30; Admin Dose 50 MG; Start 09/29/18 at 09:00 Miscellaneous Information 1 ea NOTE XX ; Start 09/28/18 at 19:00 Glucose (Glutose) 15 gm Q15M PRN PO DECREASED GLUCOSE; Start 09/28/18 at 19:00 Glucose (Glutose) 22.5 gm Q15M PRN PO DECREASED GLUCOSE; Start 09/28/18 at 19:00 Dextrose (D50w Syringe) 25 ml Q15M PRN IV DECREASED GLUCOSE Last administered on 10/01/18at 08:38; Admin Dose 25 ML; Start 09/28/18 at 19:00 Dextrose (D50w Syringe) 50 ml Q15M PRN IV DECREASED GLUCOSE; Start 09/28/18 at 19:00 Glucagon (Glucagen) 1 mg Q15M PRN IM DECREASED GLUCOSE; Start 09/28/18 at 19:00 Glucose (Glutose) 15 gm Q15M PRN BUCCAL DECREASED GLUCOSE; Start 09/28/18 at 19:00 Diphenhydramine HCl (Benadryl) 25 mg Q6H PRN PO ITCHING Last administered on 10/01/18at 09:27; Admin Dose 25 MG; Start 09/28/18 at 23:30 Diagnostic Test (Pha) (Accu-Chek) 1 ea 02 XX ; Start 10/01/18 at 02:00 Insulin Aspart (Novolog Insulin Pen) NOVOLOG *MILD* ALGORITHM WITH MEALS BEDTIME SC ; Start 09/30/18 at 18:05 Insulin Glargine (Lantus) 20 units DAILY@2000 SC ; Start 10/01/18 at 20:00 IBRAHIMA DALE NP Oct 01, 2018 12:03
[2018-10-01 15:06] VITALS: BP 150/67; PULSE 58; RESP 17
--- NOTE | 2018-10-01 15:55 | PN ---
DATE: 10/01/2018 SUBJECTIVE: No new specific event. Apparently, patient has been taken to the nuclear medicine for followup HIDA scan, but there is no report or the picture in the computer at this time, only we have the original one which was taken up to 75 minutes after administration of the radionuclide material, which failed to show evidence of secretions beyond the liver. GENERAL: Awake, sitting on the chair, working on her phone. VITAL SIGNS: Temperature 97.6, heart rate 60, respirations 16, blood pressure 174/60, saturation 100% room air. LABORATORY DATA: WBC 6400, hemoglobin 10.6, hematocrit 29.8. differential 66% which is normal. Chemistry apparently has had an episode of hypoglycemia today, blood sugar has been reported 46, but even now and okay is stable and POC glucose last time at 11:30 today was 87. Per nurse they have changed the dosage of the insulin and decreased it. PHYSICAL EXAM: The patient is jaundiced. She is itching all over her body. HEART: Regular. LUNGS: Clear. ABDOMEN: Soft. She has tenderness in right upper quadrant and epigastric area. ASSESSMENT AND PLAN: The patient with jaundice and pain for several months, jaundice for 3 weeks who had ERCP endoscopy and a sphincterotomy, a stent placement in the biliary tree for stenosis of the common hepatic duct in April 2018 at [facility] for possible cholangiocarcinoma, but nothing that was done beyond that after 4 or 5 months. The patient comes back. At that time, apparently the patient did have jaundice, but now has jaundice and enzymes of liver enzymes are elevated and MRI which was done here a few days ago was a bad quality, so no conclusion, but possibly a mass at the confluence of the biliary tree and the hilum has been suggested. Mild dilatation of the intrahepatic biliary tree. ASSESSMENT AND PLAN: 1. The patient may have a cholangiocarcinoma (of course they did a brush biopsy which was not positive for cancer, but showed atypical cells ). 2. The patient may have cancer of the gallbladder which has now moved out of the gallbladder boundaries to involve the cystic duct and cause occlusion of the cystic duct and getting involving the common hepatic duct area and also metastasis to the liver. 3. Could also have some intrinsic pathology of the liver which causing presently kind of obstructive jaundice. Ideally, it is better if we can to get a liver biopsy to find out what is wrong inside the liver. At this point, in any case, his GI colleague, Dr. Huston is planning to go ahead and do another ERCP and remove the stent as they think the stent is clogged and do whatever else is needed to be done. We will repeat PT, PTT tomorrow to make sure this is normal. Dictated By: RENITA VIRK MD PS/NTS Conf#: [id number] DID#: [id number] CC: MARY ENGLE MD; REBECCA HUSTON MD;*EndCC* MTDD
[2018-10-01 20:00] VITALS: BP 132/68; PULSE 61; RESP 18
[2018-10-01] MEDS: INSULIN GLARGINE [LANTus] (100 UNITS/ML) SYG SC SCH (20:29)
[2018-10-01] MEDS: IBUPROFEN 600 MG TAB PO PRN (21:47)
[2018-10-02 02:00] VITALS: BP 116/55; PULSE 51; RESP 18
[2018-10-02] MEDS: ACCU-CHEK XX SCH (02:00)
[2018-10-02] MEDS: DEXTROSE 50% 50 ML SYRINGE IV PRN (07:43)
[2018-10-02] MEDS: INSULIN ASPART [NOVOLOG] 3 ML PEN SC SCH ×4 (08:00→21:00)
[2018-10-02 08:31] VITALS: BP 114/61; PULSE 51; RESP 17
[2018-10-02] MEDS: DIPHENHYDRAMINE 25 MG CAP PO PRN (09:10)
[2018-10-02] MEDS: METOPROLOL (XL) 50 MG TAB PO SCH (09:12)
[2018-10-02] MEDS: FAMOTIDINE 20 MG TAB PO SCH ×2 (09:12→21:14)
[2018-10-02] MEDS: hydrOXYzine HCL 25 MG TAB PO PRN (10:46)
--- NOTE | 2018-10-02 12:12 | CONS ---
Assessment/Plan Assessment/Plan Hospital Course (Demo Recall) interval HX- Patient lying comfortably in bed, family memeber at bedside, no acute distress, looks comfortable, no acute events overnight. For ERCP in am, NPO past midnight. IMPRESSION 1. Abnormal LFT with significant weight loss, most probably related to her either gallbladder or cholangiocarcinoma. 2. Abnormal LFT could be secondary to mets in the liver. Again, the blockage of the stent cannot be absolutely ruled out. 3. Diabetes mellitus. 4. Hypertension. 5. Nicotine usage. Plan Per Dr jose antonio Jefferson-liver lesions are too small to do the biopsy and this is not the reason for the patient's jaundice. HIDA scan was positive no contrast was going into the small bowel or into the st ent indicating that the stent is probably blocked. Patient is scheduled for ERCP removal of the stent spyglass and possible biopsy to clinch the diagnosis . Once we get confirmatory diagnosis then will need oncology consult. ERCP in am, Prodedure and risks of procedure discussed with patient, patient agreeable to proceed in am NPO past midnight Initial Consult Date Date/Time of Note Consultation Date/Type/Reason Admit Date/Time Sep 28, 2018 at 16:29 Initial Consult Date Date/Time of Note DATE: 10/02/18 TIME: 12:09 Exam/Review of Systems Exam Vitals Vital Signs Date Temp Pulse Resp B/P (MAP) Pulse Ox O2 O2 Flow FiO2 Time Delivery Rate 10/02/18 98.2 51 17 114/61 100 Room Air 08:31 (78) Intake and Output 10/01/18 10/01/18 10/02/18 1515:00 23:00 07:00 IntakeIntake Total 800 ml 400 ml BalanceBalance 800 ml 400 ml Constitutional: alert, oriented Psych: no complaints Head: normocephalic Eyes: nl conjunctiva, EOMI ENMT: nl external ears & nose Neck: supple Respiratory: clear to auscultation Cardiovascular: regular rate and rhythm Gastrointestinal: soft, non-tender Musculoskeletal: nl extremities to inspection Extremities: normal pulses Neurological: QUALITY CONTROL SPECIALIST II-XII intact Results Result Diagram: 10/01/18 0531 10/02/18 0504 Results 24hrs Laboratory Tests Test 10/01/18 17:28 10/01/18 20:24 10/02/18 01:42 10/02/18 02:06 Bedside Glucose 118 204 58 L 87 Test 10/02/18 03:21 10/02/18 05:04 10/02/18 07:39 10/02/18 08:09 Bedside Glucose 111 53 L 120 Prothrombin Time 13.7 Prothrombin Time 1.1 Ratio INR International 1.04 Normalized Ratio Activated 34.9 Partial Thromboplast Time Sodium Level 141 Potassium Level 3.6 Chloride Level 105 Carbon Dioxide Level 27 Anion Gap 9 Blood Urea Nitrogen 13 Creatinine 0.54 Est Glomerular > 60 Filtrat Rate mL/min Glucose Level 53 L Calcium Level 8.9 Total Bilirubin 5.1 H Direct Bilirubin 4.10 H Indirect Bilirubin 1.0 Aspartate Amino 117 H Transf (AST/SGOT) Alanine 63 Aminotransferase (AL T/SGPT) Alkaline Phosphatase 775 H Total Protein 8.3 H Albumin 3.1 L Globulin 5.20 H Albumin/Globulin 0.59 Ratio Test 10/02/18 08:29 10/02/18 08:54 10/02/18 09:15 10/02/18 12:00 Bedside Glucose 74 107 115 95 Medications Medication Current Medications Ondansetron HCl (Zofran Inj) 4 mg Q6H PRN IV NAUSEA/VOMITING; Start 09/28/18 at 19:00 Ibuprofen (Motrin) 600 mg Q6H PRN PO .PAIN 1-3 Last administered on 10/01/18at 21:47; Admin Dose 600 MG; Start 09/28/18 at 19:00 Famotidine (Pepcid) 20 mg Q12 PO Last administered on 10/02/18at 09:12; Admin Dose 20 MG; Start 09/28/18 at 21:00 Metoprolol Succinate (Toprol Xl) 50 mg DAILY PO Last administered on 10/02/18at 09:12; Admin Dose 50 MG; Start 09/29/18 at 09:00 Miscellaneous Information 1 ea NOTE XX ; Start 09/28/18 at 19:00 Glucose (Glutose) 15 gm Q15M PRN PO DECREASED GLUCOSE Last administered on 10/02/18at 01:50; Admin Dose 15 GM; Start 09/28/18 at 19:00 Glucose (Glutose) 22.5 gm Q15M PRN PO DECREASED GLUCOSE; Start 09/28/18 at 19:00 Dextrose (D50w Syringe) 25 ml Q15M PRN IV DECREASED GLUCOSE Last administered on 10/02/18 07:43; Admin Dose 25 ML; Start 09/28/18 at 19:00 Dextrose (D50w Syringe) 50 ml Q15M PRN IV DECREASED GLUCOSE; Start 09/28/18 at 19:00 Glucagon (Glucagen) 1 mg Q15M PRN IM DECREASED GLUCOSE; Start 09/28/18 at 19:00 Glucose (Glutose) 15 gm Q15M PRN BUCCAL DECREASED GLUCOSE; Start 09/28/18 at 19:00 Diphenhydramine HCl (Benadryl) 25 mg Q6H PRN PO ITCHING Last administered on 10/02/18 09:10; Admin Dose 25 MG; Start 09/28/18 at 23:30 Diagnostic Test (Pha) (Accu-Chek) 1 ea 02 XX Last administered on 10/02/18 02:00; Admin Dose 1 EA; Start 10/01/18 at 02:00 Insulin Aspart (Novolog Insulin Pen) NOVOLOG *MILD* ALGORITHM WITH MEALS BEDTIME SC Last administered on 10/01/18 20:28; Admin Dose 1 UNIT; Start 09/30/18 at 18:05 Insulin Glargine (Lantus) 20 units DAILY@2000 SC Last administered on 10/01/18 20:29; Admin Dose 20 UNITS; Start 10/01/18 at 20:00 Hydroxyzine HCl (Atarax) 25 mg Q6H PRN PO ITCHING Last administered on 10/02/18 10:46; Admin Dose 25 MG; Start 10/02/18 at 11:00 IBRAHIMA DALE NP Oct 02, 2018 12:12
--- NOTE | 2018-10-02 12:29 | PN ---
Date/Time of Note Date/Time of Note DATE: 10/02/18 TIME: 12:29 Assessment/Plan VTE Prophylaxis Risk score (from Ns)>0 risk: 3 SCD applied (from Ns): Yes Pharmacological prophylaxis: LMWH Lines/Catheters IV [facility] Saline Lock Assessment/Plan Hospital Course -Jaundice. - per Dr. Estrada in gastroenterology consultation- for HIDA scan today; fu results - per Dr. Harris in general surgery consultation. - Abnormal Abdominal MRI - Poorly defined mass-like area is seen in the region of the biliary confluence, concerning for neoplasm, suboptimally evaluated without IV contrast. This mass causes obstruction at the level of the biliary confluence, with mild to moderate dilatation of intrahepatic biliary ducts proximally. - Gallbladder is not well visualized. Contrast enhanced CT is recommended for further evaluation. - Oncology consultation appreciated -Diabetes mellitus - Glycemic control -Hypertension- stable -Hyperlipidemia Result Diagram: 10/01/18 0531 10/02/18 0504 Results 24hrs Laboratory Tests Test 10/01/18 17:28 10/01/18 20:24 10/02/18 01:42 10/02/18 02:06 Bedside Glucose 118 204 58 L 87 Test 10/02/18 03:21 10/02/18 05:04 10/02/18 07:39 10/02/18 08:09 Bedside Glucose 111 53 L 120 Prothrombin Time 13.7 Prothrombin Time 1.1 Ratio INR International 1.04 Normalized Ratio Activated 34.9 Partial Thromboplast Time Sodium Level 141 Potassium Level 3.6 Chloride Level 105 Carbon Dioxide Level 27 Anion Gap 9 Blood Urea Nitrogen 13 Creatinine 0.54 Est Glomerular > 60 Filtrat Rate mL/min Glucose Level 53 L Calcium Level 8.9 Total Bilirubin 5.1 H Direct Bilirubin 4.10 H Indirect Bilirubin 1.0 Aspartate Amino 117 H Transf (AST/SGOT) Alanine 63 Aminotransferase (AL T/SGPT) Alkaline Phosphatase 775 H Total Protein 8.3 H Albumin 3.1 L Globulin 5.20 H Albumin/Globulin 0.59 Ratio Test 10/02/18 08:29 10/02/18 08:54 10/02/18 09:15 10/02/18 12:00 Bedside Glucose 74 107 115 95 Subjective 24 Hr Interval Summary Free Text/Dictation Patient feels weak, wants salt in foot Exam/Review of Systems Exam Vitals Vital Signs Date Temp Pulse Resp B/P (MAP) Pulse Ox O2 O2 Flow FiO2 Time Delivery Rate 10/02/18 98.2 51 17 114/61 100 Room Air 08:31 (78) Intake and Output 10/01/18 10/01/18 10/02/18 1515:00 23:00 07:00 IntakeIntake Total 800 ml 400 ml BalanceBalance 800 ml 400 ml Constitutional: well developed Head: normocephalic, atraumatic Neck: supple Respiratory: diminished breath sounds Cardiovascular: regular rate and rhythm Gastrointestinal: soft, non-tender Extremities: normal pulses Results Results 24hrs Laboratory Tests Test 10/01/18 17:28 10/01/18 20:24 10/02/18 01:42 10/02/18 02:06 Bedside Glucose 118 204 58 L 87 Test 10/02/18 03:21 10/02/18 05:04 10/02/18 07:39 10/02/18 08:09 Bedside Glucose 111 53 L 120 Prothrombin Time 13.7 Prothrombin Time 1.1 Ratio INR International 1.04 Normalized Ratio Activated 34.9 Partial Thromboplast Time Sodium Level 141 Potassium Level 3.6 Chloride Level 105 Carbon Dioxide Level 27 Anion Gap 9 Blood Urea Nitrogen 13 Creatinine 0.54 Est Glomerular > 60 Filtrat Rate mL/min Glucose Level 53 L Calcium Level 8.9 Total Bilirubin 5.1 H Direct Bilirubin 4.10 H Indirect Bilirubin 1.0 Aspartate Amino 117 H Transf (AST/SGOT) Alanine 63 Aminotransferase (AL T/SGPT) Alkaline Phosphatase 775 H Total Protein 8.3 H Albumin 3.1 L Globulin 5.20 H Albumin/Globulin 0.59 Ratio Test 10/02/18 08:29 10/02/18 08:54 10/02/18 09:15 10/02/18 12:00 Bedside Glucose 74 107 115 95 Medications Medication Current Medications Ondansetron HCl (Zofran Inj) 4 mg Q6H PRN IV NAUSEA/VOMITING; Start 09/28/18 at 19:00 Ibuprofen (Motrin) 600 mg Q6H PRN PO .PAIN 1-3 Last administered on 10/01/18at 21:47; Admin Dose 600 MG; Start 09/28/18 at 19:00 Famotidine (Pepcid) 20 mg Q12 PO Last administered on 10/02/18at 09:12; Admin Dose 20 MG; Start 09/28/18 at 21:00 Metoprolol Succinate (Toprol Xl) 50 mg DAILY PO Last administered on 10/02/18at 09:12; Admin Dose 50 MG; Start 09/29/18 at 09:00 Miscellaneous Information 1 ea NOTE XX ; Start 09/28/18 at 19:00 Glucose (Glutose) 15 gm Q15M PRN PO DECREASED GLUCOSE Last administered on 10/02/18at 01:50; Admin Dose 15 GM; Start 09/28/18 at 19:00 Glucose (Glutose) 22.5 gm Q15M PRN PO DECREASED GLUCOSE; Start 09/28/18 at 19:00 Dextrose (D50w Syringe) 25 ml Q15M PRN IV DECREASED GLUCOSE Last administered on 10/02/18at 07:43; Admin Dose 25 ML; Start 09/28/18 at 19:00 Dextrose (D50w Syringe) 50 ml Q15M PRN IV DECREASED GLUCOSE; Start 09/28/18 at 19:00 Glucagon (Glucagen) 1 mg Q15M PRN IM DECREASED GLUCOSE; Start 09/28/18 at 19:00 Glucose (Glutose) 15 gm Q15M PRN BUCCAL DECREASED GLUCOSE; Start 09/28/18 at 19:00 Diphenhydramine HCl (Benadryl) 25 mg Q6H PRN PO ITCHING Last administered on 10/02/18at 09:10; Admin Dose 25 MG; Start 09/28/18 at 23:30 Diagnostic Test (Pha) (Accu-Chek) 1 ea 02 XX Last administered on 10/02/18at 02:00; Admin Dose 1 EA; Start 10/01/18 at 02:00 Insulin Aspart (Novolog Insulin Pen) NOVOLOG *MILD* ALGORITHM WITH MEALS BEDTIME SC Last administered on 10/01/18 20:28; Admin Dose 1 UNIT; Start 09/30/18 at 18:05 Insulin Glargine (Lantus) 20 units DAILY@2000 SC Last administered on 10/01/18 20:29; Admin Dose 20 UNITS; Start 10/01/18 at 20:00 Hydroxyzine HCl (Atarax) 25 mg Q6H PRN PO ITCHING Last administered on 10/02/18at 10:46; Admin Dose 25 MG; Start 3/10/19 at 11:00 JOÃO SANCHEZ Oct 02, 2018 12:29
[2018-10-02 14:54] VITALS: BP 139/66; PULSE 52; RESP 18
--- NOTE | 2018-10-02 16:11 | PN ---
DATE: 10/02/2018 SUBJECTIVE: No new complaint, no new event. Awaiting ERCP tomorrow on Wednesday. OBJECTIVE: GENERAL: Awake, alert, lying down in the bed in no acute distress. VITAL SIGNS: Temperature 98.9, heart rate 62, respiration 18, blood pressure 139/66, saturation 98% room air. SKIN: The skin is jaundiced. CARDIOVASCULAR: Regular. LUNGS: Clear. ABDOMEN: Soft. EXTREMITIES: No pitting edema. LABORATORY DATA: No hematology today. Chemistry: Sodium, potassium normal, BUN and creatinine normal. Blood sugar again has been low in the morning 53, bilirubin has increased since admission is 5.1, direct bilirubin is 4.1, indirect bilirubin is 1. AST elevated more than 117, alkaline phosphatase increased to 775, high. Total protein 8.3, albumin 3.1, globulin 5.2, which is high. ASSESSMENT AND PLAN: A 58-year-old female was admitted for evaluation and workup to find the etiology and final diagnosis of the cause of patient's jaundice and abdominal and right upper quadrant epigastric pain. The patient already has a stent Spy Glass placed in the common bile duct about 4 months ago in [facility] to evaluate patency of the stent. Regarding his HIDA scan which, after 75 minutes, did not show any evidence of secretions beyond the liver, they followed it 4 hours. Picture is in the computer. There is no official report and to me appears that there is no excretion into the biliary tree. The stent is clogged or no hepatocellular excretion of the bile out of the liver, so Dr. Estrada, GI colleague is planning to do ERCP tomorrow and possibly removal of the stent and placement of another stent. I think we also need to have liver biopsy to make sure of presence of any pathology in the liver at cellular level. Dictated By: RENITA DUMAS/ROSALIE Conf#: [id number] DID#: [id number] NATE
[2018-10-02] MEDS: INSULIN GLARGINE [LANTus] (100 UNITS/ML) SYG SC SCH (20:00)
[2018-10-02 20:10] VITALS: BP 157/76; PULSE 64; RESP 18
[2018-10-02] MEDS ORDERED: INSULIN GLARGINE [LANTus] (100 UNITS/ML) SYG SC ONE (21:30)
[2018-10-03] VITALS (15 sets, daily range): BP systolic 124–157; BP diastolic 59–73; PULSE 52–70; RESP 14–18
[2018-10-03] MEDS: INSULIN ASPART [NOVOLOG] 3 ML PEN SC SCH ×6 (00:54→21:09)
[2018-10-03] MEDS: ACCU-CHEK XX SCH (02:15)
[2018-10-03] MEDS ORDERED: ROCURONIUM 50 MG INJ ONE (07:00)
[2018-10-03] MEDS ORDERED: LIDOCAINE 2% (SDV) 5 ML INJ ONE (07:00)
[2018-10-03] MEDS: FAMOTIDINE 20 MG TAB PO SCH ×2 (09:00→21:07)
[2018-10-03] MEDS: METOPROLOL (XL) 50 MG TAB PO SCH (09:00)
--- NOTE | 2018-10-03 11:50 | PN ---
Date/Time of Note Date/Time of Note DATE: 10/03/18 TIME: 11:43 Assessment/Plan [place] [facility] [place]: 3 [place] [facility] [place] Yes Pharmacological prophylaxis: NA/contraindicated Pharm contraindication: liver dx, other (ERCP procedure) Lines/Catheters IV Catheter Type (from [facility]): Saline Lock Assessment/Plan Hospital Course Patient is awake alert, denies any nausea and vomiting, still jaundice, patient will undergo ERCP procedure today. IV fluids with D5 while patient is n.p.o.. Assessment/Plan -New onset of Jaundice. Dr. Estrada is following in gastroenterology consultation. Dr. Harris and Dr Main are following in general surgery consultation. -Hx of ERCP and stent placement in April 2018 at another facility. -Diabetes mellitus, continue Lantus and NovoLog. -Hypertension, continue metoprolol. -Hyperlipidemia Further recommendations based on clinical course. Plan of care discussed with Dr. Rizzo. Result Diagram: 10/03/18 0517 10/02/18 0504 Results 24hrs Laboratory Tests Test 10/02/18 12:00 10/02/18 17:14 10/02/18 21:01 10/03/18 00:49 Bedside Glucose 95 130 178 259 H Test 10/03/18 05:05 10/03/18 05:17 10/03/18 09:02 Bedside Glucose 74 79 White Blood Count 7.1 Red Blood Count 3.19 L Hemoglobin 10.6 L Hematocrit 29.5 L Mean Corpuscular 92.5 Volume Mean Corpuscular 33.2 H Hemoglobin Mean Corpuscular 35.9 Hemoglobin Concent Red Cell 19.0 H Distribution Width Platelet Count 425 H Mean Platelet Volume 9.9 Immature 1.400 H Granulocytes % Neutrophils % 67.2 Lymphocytes % 22.6 Monocytes % 7.2 Eosinophils % 1.0 Basophils % 0.6 Nucleated Red Blood 0.4 H Cells % Immature 0.100 H Granulocytes # Neutrophils # 4.8 Lymphocytes # 1.6 Monocytes # 0.5 Eosinophils # 0.1 Basophils # 0.0 Nucleated Red Blood 0.0 Cells # Exam/Review of Systems Exam Vitals Vital Signs Date Temp Pulse Resp B/P (MAP) Pulse Ox O2 O2 Flow FiO2 Time Delivery Rate 10/03/18 98.3 61 16 126/64 98 Room Air 07:54 (84) Intake and Output 10/02/18 10/02/18 10/03/18 1414:59 22:59 06:59 IntakeIntake Total 500 ml BalanceBalance 500 ml Exam Constitutional: alert, oriented, other (jaundiced) Respiratory: clear to auscultation Cardiovascular: nl pulses Gastrointestinal: soft, tender Musculoskeletal: nl extremities to inspection Extremities: normal pulses Neurological: nl mental status Results Results 24hrs Laboratory Tests Test 10/02/18 12:00 10/02/18 17:14 10/02/18 21:01 10/03/18 00:49 Bedside Glucose 95 130 178 259 H Test 10/03/18 05:05 10/03/18 05:17 10/03/18 09:02 Bedside Glucose 74 79 White Blood Count 7.1 Red Blood Count 3.19 L Hemoglobin 10.6 L Hematocrit 29.5 L Mean Corpuscular 92.5 Volume Mean Corpuscular 33.2 H Hemoglobin Mean Corpuscular 35.9 Hemoglobin Concent Red Cell 19.0 H Distribution Width Platelet Count 425 H Mean Platelet Volume 9.9 Immature 1.400 H Granulocytes % Neutrophils % 67.2 Lymphocytes % 22.6 Monocytes % 7.2 Eosinophils % 1.0 Basophils % 0.6 Nucleated Red Blood 0.4 H Cells % Immature 0.100 H Granulocytes # Neutrophils # 4.8 Lymphocytes # 1.6 Monocytes # 0.5 Eosinophils # 0.1 Basophils # 0.0 Nucleated Red Blood 0.0 Cells # Medications Medication Current Medications Ondansetron HCl (Zofran Inj) 4 mg Q6H PRN IV NAUSEA/VOMITING; Start 09/28/18 at 19:00 Ibuprofen (Motrin) 600 mg Q6H PRN PO .PAIN 1-3 Last administered on 10/01/18at 21:47; Admin Dose 600 MG; Start 09/28/18 at 19:00 Famotidine (Pepcid) 20 mg Q12 PO Last administered on 10/02/18at 21:14; Admin Dose 20 MG; Start 09/28/18 at 21:00 Metoprolol Succinate (Toprol Xl) 50 mg DAILY PO Last administered on 10/02/18at 09:12; Admin Dose 50 MG; Start 09/29/18 at 09:00 Miscellaneous Information 1 ea NOTE XX ; Start 09/28/18 at 19:00 Glucose (Glutose) 15 gm Q15M PRN PO DECREASED GLUCOSE Last administered on 10/02/18at 01:50; Admin Dose 15 GM; Start 09/28/18 at 19:00 Glucose (Glutose) 22.5 gm Q15M PRN PO DECREASED GLUCOSE; Start 09/28/18 at 19:00 Dextrose (D50w Syringe) 25 ml Q15M PRN IV DECREASED GLUCOSE Last administered on 10/02/18at 07:43; Admin Dose 25 ML; Start 09/28/18 at 19:00 Dextrose (D50w Syringe) 50 ml Q15M PRN IV DECREASED GLUCOSE; Start 09/28/18 at 19:00 Glucagon (Glucagen) 1 mg Q15M PRN IM DECREASED GLUCOSE; Start 09/28/18 at 19:00 Glucose (Glutose) 15 gm Q15M PRN BUCCAL DECREASED GLUCOSE; Start 09/28/18 at 19:00 Diphenhydramine HCl (Benadryl) 25 mg Q6H PRN PO ITCHING Last administered on 10/02/18at 09:10; Admin Dose 25 MG; Start 09/28/18 at 23:30 Diagnostic Test (Pha) (Accu-Chek) 1 ea 02 XX Last administered on 10/03/18at 02:15; Admin Dose 1 EA; Start 10/01/18 at 02:00 Insulin Glargine (Lantus) 20 units DAILY@2000 SC Last administered on 10/01/18at 20:29; Admin Dose 20 UNITS; Start 10/01/18 at 20:00 Hydroxyzine HCl (Atarax) 25 mg Q6H PRN PO ITCHING Last administered on 10/02/18at 10:46; Admin Dose 25 MG; Start 10/02/18 at 11:00 Insulin Aspart (Novolog Insulin Pen) NOVOLOG *MILD* ALGORI... Q4 SC Last administered on 10/03/18at 00:54; Admin Dose 3 UNIT; Start 10/03/18 at 01:00 EDWIN OCHOA Oct 03, 2018 11:50
[2018-10-03] MEDS: hydrOXYzine HCL 25 MG TAB PO PRN (12:20)
[2018-10-03] MEDS ORDERED: DEXTROSE 5%-0.45% NACL 1,000 ML IV SCH (12:30)
--- NOTE | 2018-10-03 16:11 | HPN ---
Date/Time of Note Date/Time of Note DATE: 10/03/18 TIME: 16:10 Interval H&P Admission Note Pt. seen H&P reviewed: No system changes REBECCA HUSTON MD Oct 03, 2018 16:11
--- NOTE | 2018-10-03 16:11 | PREAC ---
Date/Time of Note Date/Time of Note DATE: 10/03/18 TIME: 16:09 Anesthesia Eval and Record Evaluation Time Pre-Procedure Interview DATE: 10/03/18 TIME: 16:09 Age 58 Sex female NPO: 8 hrs Preoperative diagnosis common bile duct obstruction, stones Planned procedure ercp Past Medical History Past Medical History: Includes Cardio: HTN, Dyslipidemia Endo: Diabetes Musculoskeletal: Osteoarthritis Surgery & Anesthesia Issues No known issue Meds Anticoagulation: No Beta Tyron within 24 hr: Yes Reported Medications Atorvastatin Calcium* (Atorvastatin Calcium*) 20 Mg Tablet, 20 MG PO QHS, #30 TAB 09/28/18 Metoprolol Succinate* (Toprol XL*) 50 Mg Tab.er.24h, 50 MG PO DAILY, #30 TAB 09/28/18 Insulin Aspart* (Novolog Insulin Pen*) 100 Unit/Ml Soln, 0-12 SC .SLIDING SCALE AC, EA 09/28/18 Insulin Detemir (Levemir) 100 Unit/1 Ml Vial, 30 UNITS SC hs 09/28/18 Metformin* (Glucophage*) 1,000 Mg Tablet, 1000 MG PO BID, #60 TAB 09/28/18 Current Medications Ondansetron HCl (Zofran Inj) 4 mg Q6H PRN IV NAUSEA/VOMITING; Start 09/28/18 at 19:00 Ibuprofen (Motrin) 600 mg Q6H PRN PO .PAIN 1-3 Last administered on 10/01/18at 21:47; Admin Dose 600 MG; Start 09/28/18 at 19:00 Famotidine (Pepcid) 20 mg Q12 PO Last administered on 10/02/18at 21:14; Admin Dose 20 MG; Start 09/28/18 at 21:00 Metoprolol Succinate (Toprol Xl) 50 mg DAILY PO Last administered on 10/02/18at 09:12; Admin Dose 50 MG; Start 09/29/18 at 09:00 Miscellaneous Information 1 ea NOTE XX ; Start 09/28/18 at 19:00 Glucose (Glutose) 15 gm Q15M PRN PO DECREASED GLUCOSE Last administered on 10/02/18at 01:50; Admin Dose 15 GM; Start 09/28/18 at 19:00 Glucose (Glutose) 22.5 gm Q15M PRN PO DECREASED GLUCOSE; Start 09/28/18 at 19:00 Dextrose (D50w Syringe) 25 ml Q15M PRN IV DECREASED GLUCOSE Last administered on 10/02/18at 07:43; Admin Dose 25 ML; Start 09/28/18 at 19:00 Dextrose (D50w Syringe) 50 ml Q15M PRN IV DECREASED GLUCOSE; Start 09/28/18 at 19:00 Glucagon (Glucagen) 1 mg Q15M PRN IM DECREASED GLUCOSE; Start 09/28/18 at 19:00 Glucose (Glutose) 15 gm Q15M PRN BUCCAL DECREASED GLUCOSE; Start 09/28/18 at 19:00 Diphenhydramine HCl (Benadryl) 25 mg Q6H PRN PO ITCHING Last administered on 10/02/18at 09:10; Admin Dose 25 MG; Start 09/28/18 at 23:30 Diagnostic Test (Pha) (Accu-Chek) 1 ea 02 XX Last administered on 10/03/18at 02:15; Admin Dose 1 EA; Start 10/01/18 at 02:00 Insulin Glargine (Lantus) 20 units DAILY@2000 SC Last administered on 10/01/18at 20:29; Admin Dose 20 UNITS; Start 10/01/18 at 20:00 Hydroxyzine HCl (Atarax) 25 mg Q6H PRN PO ITCHING Last administered on 10/03/18at 12:20; Admin Dose 25 MG; Start 10/02/18 at 11:00 Insulin Aspart (Novolog Insulin Pen) NOVOLOG *MILD* ALGORI... Q4 SC Last administered on 10/03/18at 00:54; Admin Dose 3 UNIT; Start 10/03/18 at 01:00 Dextrose/Sodium Chloride 1,000 ml @ 60 mls/hr [id number] IV Last administered on 10/03/18at 12:28; Admin Dose 60 MLS/HR; Start 10/03/18 at 12:30 Meds reviewed: Yes Allergies Coded Allergies: morphine (Verified Allergy, Unknown, 09/28/18) Uncoded Allergies: CONTRAST (Allergy, Unknown, 09/28/18) Allergies Reviewed: Yes Labs/Studies Labs Reviewed: Reviewed by anesthesiologist Result Diagram: 10/03/18 0517 10/02/18 0504 Laboratory Tests 10/03/18 05:17 test: N/A Studies: ECG, CXR Pre-procedure Exam Last vitals Vital Signs Date Temp Pulse Resp B/P (MAP) Pulse Ox O2 O2 Flow FiO2 Time Delivery Rate 10/03/18 98.1 52 17 124/59 98 Room Air 15:29 (80) Airway: Adequate mouth opening, Adequate thyromental dist Mallampati: Mallampati I Teeth: Normal Lung: Normal Heart: Normal ASA Physical Status ASA physical status: 2 Emergency: None Planned Anesthetic General/MAC: ETT Planned Pain Management Parenteral pain med Pre-operative Attestations Prior to commencing anesthesia and surgery, the patient was re-evaluated, there was verification of: *The patient's identity *The results of appropriate recent lab work and preoperative vital signs *The above evaluation not changing prior to induction *Anesthetic plan, risk benefits, alternative and complications discussed with patient/family; questions answered; patient/family understands, accepts and wishes to proceed. BRIGID JOCYE Oct 03, 2018 16:11
[2018-10-03] MEDS ORDERED: INDOMETHACIN 50 MG SUPP PR ONE (16:30)
[2018-10-03] MEDS ORDERED: PROPOFOL 20 ML ONE (16:32)
[2018-10-03] MEDS ORDERED: DEXAMETHASONE 4 MG/ML 5 ML INJ ONE (16:51)
[2018-10-03] MEDS ORDERED: ONDANSETRON 4 MG INJ ONE (16:52)
--- NOTE | 2018-10-03 17:02 | PN ---
DATE: 10/03/2018 SUBJECTIVE: No new event. No new complaint. Patient just now has left floor to have ERCP done. OBJECTIVE: GENERAL: The patient is awake and alert. VITAL SIGNS: Today, temperature maximum 98.3, heart rate 61, respirations 16, blood pressure 126/64, saturation 98% room air. LABORATORY: WBC 7100 with 67% segmented which is normal differential, hemoglobin 10.6, hematocrit 29.5. Chemistry: POC glucose has been in the range of 74 and 79. Coagulation check yesterday, INR was 1.04, which is normal. ASSESSMENT: A 58-year-old female with jaundice of duration about 2 to 3 weeks and also persistent pain in right upper quadrant and epigastric area for about 5 to 6 months. In April, the patient as mentioned before was admitted in [facility] and ERCP was done. A sphincterotomy stent was placed to overcome some narrowing in the common hepatic duct with the impression of possible cholangiocarcinoma. Brushing was obtained which did not reveal any cancer cells, but showed atypical cells. Then after, the patient was discharged to be followed by her primary care physician and to continue plan for her to be seen by other specialists. Eventually ended up with Dr. Harris' office and for further assessment and final diagnosis. The patient was admitted and now today, Dr. Estrada, GI colleague is going to take the patient for ERCP and with the assumption that probably the previous stent has stopped functioning because the HIDA scan which was done 3 days ago did not show any evidence of excretion from the liver , so he is going to change the stent and whatever is needed to be done. We believe that the patient also needs a liver biopsy to make sure of intrinsic pathology of the liver or not. Anyway, we will wait for the result of the findings of Dr. Estrada and make further decision as the workup is getting completed. Dictated By: RENITA VIRK MD PS/ROSALIE Conf#: [id number] DID#: [id number] MTDD
[2018-10-03] MEDS ORDERED: IOHEXOL 300MG/ML 30 ML BTL ONE (17:44)
[2018-10-03] MEDS ORDERED: METOCLOPRAMIDE 10 MG INJ IV PRN (18:00)
[2018-10-03] MEDS ORDERED: hydrALAzine 20 MG INJ IV PRN (18:00)
[2018-10-03] MEDS ORDERED: MEPERIDINE 25 MG INJ IV PRN (18:00)
[2018-10-03] MEDS ORDERED: DIPHENHYDRAMINE 50 MG INJ IV PRN (18:00)
[2018-10-03] MEDS ORDERED: EPHEDrine SULFATE 50 MG/5 ML SYG IV PRN (18:00)
[2018-10-03] MEDS ORDERED: FENTAnyl 50 MCG/ML VIAL IV PRN ×3 (18:00)
[2018-10-03] MEDS ORDERED: ONDANSETRON 4 MG INJ IV PRN (18:00)
[2018-10-03] MEDS ORDERED: LABETALOL HCL 20MG INJ IV PRN (18:00)
[2018-10-03] MEDS ORDERED: MIDAZOLAM 1 MG/ML 2 ML INJ IV PRN (18:00)
[2018-10-03] MEDS ORDERED: HYDROmorphONE 1 MG/5 ML IV SYRINGE IV PRN ×3 (18:00)
[2018-10-03] MEDS ORDERED: ALBUTEROL 0.083% (NEB) 2.5 MG/3 ML AMP HHN PRN (18:00)
--- NOTE | 2018-10-03 18:01 | CONS ---
Assessment/Plan Assessment/Plan Assessment/Plan (Daily) IMPRESSION 1. Abnormal LFT with significant weight loss, most probably related to her either gallbladder or cholangiocarcinoma. 2. Abnormal LFT could be secondary to mets in the liver. Again, the blockage of the stent cannot be absolutely ruled out. 3. Diabetes mellitus. 4. Hypertension. 5. Nicotine usage. Plan Per Dr jose antonio Jefferson-liver lesions are too small to do the biopsy and this is not the reason for the patient's jaundice. HIDA scan was positive no contrast was going into the small bowel or into the stent indicating that the stent is probably blocked. Patient is scheduled for ERCP removal of the stent spyglass and possible biopsy to clinch the diagnosis . Once we get confirmatory diagnosis then will need oncology consult. ERCP today, Prodedure and risks of procedure discussed with patient, patient agreeable to proceed in am Consultation Date/Type/Reason Admit Date/Time Sep 28, 2018 at 16:29 Initial Consult Date Date/Time of Note DATE: 10/03/18 TIME: 18:00 24 HR Interval Summary Constitutional: no complaints Exam/Review of Systems Exam Vitals Vital Signs Date Temp Pulse Resp B/P (MAP) Pulse Ox O2 O2 Flow FiO2 Time Delivery Rate 10/03/18 98.1 52 17 124/59 98 Room Air 15:29 (80) Intake and Output 10/02/18 10/02/18 10/03/18 1515:00 23:00 07:00 IntakeIntake Total 500 ml BalanceBalance 500 ml Constitutional: alert, oriented, well developed Psych: no complaints, nl mood/affect Head: normocephalic, atraumatic Eyes: nl conjunctiva, EOMI, nl lids, nl sclera, PERRL ENMT: nl external ears & nose, nl lips & teeth, nl nasal mucosa & septum Neck: supple, non-tender Respiratory: clear to auscultation, normal air movement Cardiovascular: regular rate and rhythm, nl pulses Gastrointestinal: soft, nl liver, spleen, non-tender Musculoskeletal: nl extremities to inspection, nl gait and stance Extremities: normal pulses Neurological: CEMENT SIDE LASTER II-XII intact, nl mental status, nl speech, nl strength Skin: nl turgor; No rash or lesions Lymph: nl lymph nodes Results Result Diagram: 10/03/18 0517 10/02/18 0504 Results 24hrs Laboratory Tests Test 10/02/18 21:01 10/03/18 00:49 10/03/18 05:05 10/03/18 05:17 Bedside Glucose 178 259 H 74 White Blood Count 7.1 Red Blood Count 3.19 L Hemoglobin 10.6 L Hematocrit 29.5 L Mean Corpuscular 92.5 Volume Mean Corpuscular 33.2 H Hemoglobin Mean Corpuscular 35.9 Hemoglobin Concent Red Cell 19.0 H Distribution Width Platelet Count 425 H Mean Platelet Volume 9.9 Immature 1.400 H Granulocytes % Neutrophils % 67.2 Lymphocytes % 22.6 Monocytes % 7.2 Eosinophils % 1.0 Basophils % 0.6 Nucleated Red Blood 0.4 H Cells % Immature 0.100 H Granulocytes # Neutrophils # 4.8 Lymphocytes # 1.6 Monocytes # 0.5 Eosinophils # 0.1 Basophils # 0.0 Nucleated Red Blood 0.0 Cells # Test 10/03/18 09:02 10/03/18 13:01 Bedside Glucose 79 89 Medications Medication Current Medications Ondansetron HCl (Zofran Inj) 4 mg Q6H PRN IV NAUSEA/VOMITING; Start 09/28/18 at 19:00 Ibuprofen (Motrin) 600 mg Q6H PRN PO .PAIN 1-3 Last administered on 10/01/18at 21:47; Admin Dose 600 MG; Start 09/28/18 at 19:00 Famotidine (Pepcid) 20 mg Q12 PO Last administered on 10/02/18at 21:14; Admin Dose 20 MG; Start 09/28/18 at 21:00 Metoprolol Succinate (Toprol Xl) 50 mg DAILY PO Last administered on 10/02/18at 09:12; Admin Dose 50 MG; Start 09/29/18 at 09:00 Miscellaneous Information 1 ea NOTE XX ; Start 09/28/18 at 19:00 Glucose (Glutose) 15 gm Q15M PRN PO DECREASED GLUCOSE Last administered on 10/02/18at 01:50; Admin Dose 15 GM; Start 09/28/18 at 19:00 Glucose (Glutose) 22.5 gm Q15M PRN PO DECREASED GLUCOSE; Start 09/28/18 at 19:00 Dextrose (D50w Syringe) 25 ml Q15M PRN IV DECREASED GLUCOSE Last administered on 10/02/18at 07:43; Admin Dose 25 ML; Start 09/28/18 at 19:00 Dextrose (D50w Syringe) 50 ml Q15M PRN IV DECREASED GLUCOSE; Start 09/28/18 at 1 9:00 Glucagon (Glucagen) 1 mg Q15M PRN IM DECREASED GLUCOSE; Start 09/28/18 at 19:00 Glucose (Glutose) 15 gm Q15M PRN BUCCAL DECREASED GLUCOSE; Start 09/28/18 at 19:00 Diphenhydramine HCl (Benadryl) 25 mg Q6H PRN PO ITCHING Last administered on 10/02/18at 09:10; Admin Dose 25 MG; Start 09/28/18 at 23:30 Diagnostic Test (Pha) (Accu-Chek) 1 ea 02 XX Last administered on 10/03/18at 02:15; Admin Dose 1 EA; Start 10/01/18 at 02:00 Insulin Glargine (Lantus) 20 units DAILY@2000 SC Last administered on 10/01/18at 20:29; Admin Dose 20 UNITS; Start 10/01/18 at 20:00 Hydroxyzine HCl (Atarax) 25 mg Q6H PRN PO ITCHING Last administered on 10/03/18 12:20; Admin Dose 25 MG; Start 10/02/18 at 11:00 Insulin Aspart (Novolog Insulin Pen) NOVOLOG *MILD* ALGORI... Q4 SC Last administered on 10/03/18at 00:54; Admin Dose 3 UNIT; Start 10/03/18 at 01:00 Dextrose/Sodium Chloride 1,000 ml @ 60 mls/hr [id number] IV Last administered on 10/03/18at 12:28; Admin Dose 60 MLS/HR; Start 10/03/18 at 12:30 REBECCA HUSTON MD Oct 03, 2018 18:01
--- NOTE | 2018-10-03 18:02 | PAC ---
Date/Time of Note Date/Time of Note DATE: 10/03/18 TIME: 18:02 Post-Anesthesia Notes Post-Anesthesia Note Last documented vital signs Vital Signs Date Temp Pulse Resp B/P (MAP) Pulse Ox O2 O2 Flow FiO2 Time Delivery Rate 10/03/18 98.1 52 17 124/59 98 Room Air 1802 (80) Activity: WNL Respiratory function: WNL Cardiovascular function: WNL Mental status: Baseline Pain reasonably controlled: Yes Hydration appropriate: Yes Nausea/Vomiting absent: Yes BRIGID JOYCE Oct 03, 2018 18:02
[2018-10-03] MEDS: LEVOFLOXACIN 500MG/D5W (PMX) 100 ML IVPB SCH (18:34)
--- NOTE | 2018-10-03 19:13 | GILP ---
DATE OF PROCEDURE: PROCEDURE: ERCP removal of the stent, SpyGlass spy bite and placement of stent. INDICATION: A 58-year-old female undergoing this procedure for possible obstructive jaundice. She h as a stricture in the common hepatic duct. The purpose is to remove the stent which appears to be cl ogged as per the HIDA scan to the SpyGlass and get a proper tissue diagnosis so that we can offer pro per treatment to the patient and placement of the stent. INFORMED CONSENT: The risk of the procedure, related and unrelated complications, anesthetic risks, alternatives discussed and informed consent was obtained. DESCRIPTION OF PROCEDURE: The patient was brought to the GI lab, sedated and intubated by Dr. Ledbetter. After intubation, the patient was given Cipro and Indocin suppository. ERCP scope passed with much ease into esophagus and advanced further down into stomach and duodenum. A stent was identified, whi ch had 30% come out, successfully removed with the help of a snare along with the scope. Scope was r eintroduced. Cholangiogram obtained. There was a filling defect in the common hepatic duct consiste nt with the diagnosis of stricture. The long wire was used which was deeply in the left duct, could not go into the right duct. At this point, SpyGlass was introduced. Left duct and the branches appe ared normal; however, at the common hepatic duct, there was a stricture identified and it had also pa pillary projection with new vessel formation. On SpyGlass, definitely looks like a cholangiocarcinom a. 6 to 7 spy bites obtained. A lot of debris was also removed. There were floating stones and als o the purulent material which came out. The 9 to 12 balloon was used. Occlusive cholangiogram obtai emily. No dye would go into the right duct or the cystic duct, indicating that right duct and cystic d uct was blocked. So, 12 mm stent, 10-Albanian successfully deployed. Good drainage established, but p art of the stent constantly kept coming out, 10% to 15% of it. I pushed with the help of a rescue fo rcep, but it was technically difficult for it to stay at that particular angulation, but the drainage was good. We put another wire hoping to go into the right duct. We tried by rotating the sphincter otome. We did not have angulated tip, it did not go there, so decided to leave 10-Albanian and the sco pe was removed with good patient tolerance. IMPRESSION: 1. Removal of the old stent which had migrated significantly out. 2. Removal of the purulent material and some stone. 3. Spy bites obtained. The stricture with papillary projection and neovascularization identified on ly in the common hepatic duct. The left hepatic duct was spread, right hepatic duct could not be vis ualized, probably covered by tumor. Cystic duct also could not be visualized. Seven spy bites obtai emily. Scope was removed. Then over the guidewire, 10-Albanian 12 cm stent successfully deployed. PLAN: Review histopathology. Continue antibiotics because of the purulent discharge and in the futu re she may need uncovered stent which will stay in place or Habib catheter for radiofrequency ablatio n of the tumor. Dictated By: REBECCA HUSTON MD PJ/NTS Conf#: [id number] DID#: [id number] CC: MARY ENGLE MD;*EndCC*
[2018-10-03] MEDS: INSULIN GLARGINE [LANTus] (100 UNITS/ML) SYG SC SCH (21:08)
[2018-10-04] MEDS: ACCU-CHEK XX SCH (01:16)
[2018-10-04] MEDS ORDERED: ACCU-CHEK XX SCH (02:00)
[2018-10-04 02:10] VITALS: BP 122/58; PULSE 45; RESP 17
[2018-10-04 03:24] VITALS: PULSE 56
[2018-10-04 07:58] VITALS: BP 120/62; PULSE 56; RESP 17
[2018-10-04] MEDS: INSULIN ASPART [NOVOLOG] 3 ML PEN SC SCH ×4 (08:11→20:32)
[2018-10-04] MEDS: FAMOTIDINE 20 MG TAB PO SCH ×2 (08:12→20:30)
[2018-10-04 10:35] VITALS: BP 111/60; PULSE 56
[2018-10-04] MEDS: METOPROLOL (XL) 50 MG TAB PO SCH (13:30)
[2018-10-04] MEDS: hydrOXYzine HCL 25 MG TAB PO PRN ×2 (13:41→21:07)
[2018-10-04 13:45] VITALS: BP 116/64; PULSE 55; RESP 16
--- NOTE | 2018-10-04 14:21 | PN ---
DATE: 10/04/2018 SUBJECTIVE: No complaint, feels good. No nausea, no vomiting, no fever. Has tolerated food. Only complains of itching. Yesterday, the patient underwent ERCP per Dr. Estrada's note. He removed the old stent and he put in a new stent. She got some multiple biopsies from the common hepatic duct, which was stenotic and to his after injecting dye, the right hepatic duct is not visualized, the cystic duct is not visualized, but the left hepatic duct and the other branches of the duct before that were got visualized. He also removed some purulent material and probably a stone, per his notes. The patient is on antibiotics and a new stent is in place. We do not have a CMP today, so will see the results of CMP tomorrow to see how much it has changed the level of the jaundice and enzymes. post ERCP that was done by Dr. Estrada. PHYSICAL EXAMIANTION: GENERAL: Awake, alert, oriented. HEART: Regular. LUNGS: Clear. ABDOMEN: Soft. PLAN: 1. Continue current care. 2. Continue antibiotics. 3. Await the results of the biopsy of the common hepatic duct and also the report of the CMP she is going to be done tomorrow. Dictated By: RENITA VIRK MD PS/NTS Conf#: [id number] DID#: [id number] CC: MARY ENGLE MD;*EndCC* MTDD
--- NOTE | 2018-10-04 15:30 | PN ---
Date/Time of Note Date/Time of Note DATE: 10/04/18 TIME: 15:26 Assessment/Plan VTE Prophylaxis Risk score (from Ns)>0 risk: 4 SCD applied (from Ns): Yes Pharmacological prophylaxis: NA/contraindicated Pharm contraindication: surgical contra Lines/Catheters IV [facility]from [facility] Saline Lock Assessment/Plan Hospital Course Patient status post ERCP yesterday, hemodynamically stable, bradycardia, will decrease metoprolol dose. Assessment/Plan -New onset of Jaundice. Dr. Estrada is following in gastroenterology consultation. Dr. Harris and Dr Main are following in general surgery consultation. Status post ERCP and stent removal and new stent placement by Dr. Estrada on 10/03/2018, follow-up on pathology. -Hx of ERCP and stent placement in April 2018 at another facility. -Diabetes mellitus, continue Lantus and NovoLog. -Hypertension, continue metoprolol. -Hyperlipidemia Further recommendations based on clinical course. Plan of care discussed with Dr. Rizzo. Result Diagram: 10/03/18 0517 10/04/18 0537 Results 24hrs Laboratory Tests Test 10/03/18 18:58 10/03/18 20:58 10/04/18 01:19 10/04/18 05:37 Bedside Glucose 193 185 235 H Sodium Level 140 Potassium Level 4.7 Chloride Level 106 Carbon Dioxide Level 24 Anion Gap 10 Blood Urea Nitrogen 14 Creatinine 0.51 Est Glomerular > 60 Filtrat Rate mL/min Glucose Level 245 H Calcium Level 9.3 Test 10/04/18 07:59 10/04/18 12:27 Bedside Glucose 194 182 Exam/Review of Systems Exam Vitals Vital Signs Date Temp Pulse Resp B/P (MAP) Pulse Ox O2 O2 Flow FiO2 Time Delivery Rate 10/04/18 97.8 55 16 116/64 98 Room Air 13:45 (81) Intake and Output 10/03/18 10/03/18 10/04/18 1515:00 23:00 07:00 IntakeIntake Total 280 ml BalanceBalance 280 ml Exam Constitutional: alert, oriented, other (jaundiced) Respiratory: clear to auscultation Cardiovascular: nl pulses Gastrointestinal: soft, tender Musculoskeletal: nl extremities to inspection Extremities: normal pulses Neurological: nl mental status Results Results 24hrs Laboratory Tests Test 10/03/18 18:58 10/03/18 20:58 10/04/18 01:19 10/04/18 05:37 Bedside Glucose 193 185 235 H Sodium Level 140 Potassium Level 4.7 Chloride Level 106 Carbon Dioxide Level 24 Anion Gap 10 Blood Urea Nitrogen 14 Creatinine 0.51 Est Glomerular > 60 Filtrat Rate mL/min Glucose Level 245 H Calcium Level 9.3 Test 10/04/18 07:59 10/04/18 12:27 Bedside Glucose 194 182 Medications Medication Current Medications Ondansetron HCl (Zofran Inj) 4 mg Q6H PRN IV NAUSEA/VOMITING; Start 09/28/18 at 19:00 Ibuprofen (Motrin) 600 mg Q6H PRN PO .PAIN 1-3 Last administered on 10/01/18at 21:47; Admin Dose 600 MG; Start 09/28/18 at 19:00 Famotidine (Pepcid) 20 mg Q12 PO Last administered on 10/04/18at 08:12; Admin Dose 20 MG; Start 09/28/18 at 21:00 Metoprolol Succinate (Toprol Xl) 50 mg DAILY PO Last administered on 10/02/18at 09:12; Admin Dose 50 MG; Start 09/29/18 at 09:00 Miscellaneous Information 1 ea NOTE XX ; Start 09/28/18 at 19:00 Glucose (Glutose) 15 gm Q15M PRN PO DECREASED GLUCOSE Last administered on 10/02/18at 01:50; Admin Dose 15 GM; Start 09/28/18 at 19:00 Glucose (Glutose) 22.5 gm Q15M PRN PO DECREASED GLUCOSE; Start 09/28/18 at 19:00 Dextrose (D50w Syringe) 25 ml Q15M PRN IV DECREASED GLUCOSE Last administered on 10/02/18at 07:43; Admin Dose 25 ML; Start 09/28/18 at 19:00 Dextrose (D50w Syringe) 50 ml Q15M PRN IV DECREASED GLUCOSE; Start 09/28/18 at 1 9:00 Glucagon (Glucagen) 1 mg Q15M PRN IM DECREASED GLUCOSE; Start 09/28/18 at 19:00 Glucose (Glutose) 15 gm Q15M PRN BUCCAL DECREASED GLUCOSE; Start 09/28/18 at 19:00 Diphenhydramine HCl (Benadryl) 25 mg Q6H PRN PO ITCHING Last administered on 10/02/18 09:10; Admin Dose 25 MG; Start 09/28/18 at 23:30 Diagnostic Test (Pha) (Accu-Chek) 1 ea 02 XX Last administered on 10/03/18 02:15; Admin Dose 1 EA; Start 10/01/18 at 02:00 Insulin Glargine (Lantus) 20 units DAILY@2000 SC Last administered on 10/03/18 21:08; Admin Dose 20 UNITS; Start 10/01/18 at 20:00 Hydroxyzine HCl (Atarax) 25 mg Q6H PRN PO ITCHING Last administered on 10/04/18 13:41; Admin Dose 25 MG; Start 10/02/18 at 11:00 Levofloxacin/ Dextrose 100 ml @ 100 mls/hr Q24H IVPB Last administered on 10/03/18 18:34; Admin Dose 100 MLS/HR; Start 10/03/18 at 18:30 Insulin Aspart (Novolog Insulin Pen) NOVOLOG *MILD* ALGORITHM WITH MEALS BEDTIME SC Last administered on 10/04/18 12:31; Admin Dose 2 UNIT; Start 10/03/18 at 21:00 EDWIN OCHOA Oct 04, 2018 15:30
[2018-10-04] MEDS: LEVOFLOXACIN 500MG/D5W (PMX) 100 ML IVPB SCH (17:51)
--- NOTE | 2018-10-04 18:58 | CONS ---
Assessment/Plan Assessment/Plan Assessment/Plan (Daily) IMPRESSION 1. Abnormal LFT with significant weight loss, most probably related to her either gallbladder or cholangiocarcinoma. 2. Abnormal LFT could be secondary to mets in the liver. Again, the blockage of the stent cannot be absolutely ruled out. 3. Diabetes mellitus. 4. Hypertension. 5. Nicotine usage. 6. Biliary stricture Plan Per Dr jose antonio Jefferson-liver lesions are too small to do the biopsy and this is not the reason for the patient's jaundice. HIDA scan was positive no contrast was going into the small bowel or into the stent indicating that the stent is probably blocked. Patient is scheduled for ERCP removal of the stent spyglass and possible biopsy to clinch the diagnosis . Once we get confirmatory diagnosis then will need oncology consult. Awaiting for the pathology, had [id number] discussion with the patient and her daughter Consultation Date/Type/Reason Admit Date/Time Sep 28, 2018 at 16:29 Initial Consult Date Date/Time of Note DATE: 10/04/18 TIME: 18:57 24 HR Interval Summary Constitutional: no complaints, improved Exam/Review of Systems Exam Vitals Vital Signs Date Temp Pulse Resp B/P (MAP) Pulse Ox O2 O2 Flow FiO2 Time Delivery Rate 10/04/18 97.8 55 16 116/64 98 Room Air 13:45 (81) Intake and Output 10/03/18 10/03/18 10/04/18 1515:00 23:00 07:00 IntakeIntake Total 280 ml BalanceBalance 280 ml Constitutional: alert, oriented, well developed Psych: no complaints, nl mood/affect Head: normocephalic, atraumatic Eyes: nl conjunctiva, EOMI, nl lids, nl sclera, PERRL ENMT: nl external ears & nose, nl lips & teeth, nl nasal mucosa & septum Neck: supple, non-tender Respiratory: clear to auscultation, normal air movement Cardiovascular: regular rate and rhythm, nl pulses Gastrointestinal: soft, nl liver, spleen, non-tender Musculoskeletal: nl extremities to inspection, nl gait and stance Extremities: normal pulses Neurological: MASS S[employer]ROM[employer] MA[employer]GER II-XII intact, nl mental status, nl speech, nl strength Skin: nl turgor; No rash or lesions Lymph: nl lymph nodes Results Result Diagram: 10/03/18 0517 10/04/18 0537 Results 24hrs Laboratory Tests Test 10/03/18 18:58 10/03/18 20:58 10/04/18 01:19 10/04/18 05:37 Bedside Glucose 193 185 235 H Sodium Level 140 Potassium Level 4.7 Chloride Level 106 Carbon Dioxide Level 24 Anion Gap 10 Blood Urea Nitrogen 14 Creatinine 0.51 Est Glomerular > 60 Filtrat Rate mL/min Glucose Level 245 H Calcium Level 9.3 Test 10/04/18 07:59 10/04/18 12:27 10/04/18 17:33 Bedside Glucose 194 182 256 H Medications Medication Current Medications Ondansetron HCl (Zofran Inj) 4 mg Q6H PRN IV NAUSEA/VOMITING; Start 09/28/18 at 19:00 Ibuprofen (Motrin) 600 mg Q6H PRN PO .PAIN 1-3 Last administered on 10/01/18at 21 :47; Admin Dose 600 MG; Start 09/28/18 at 19:00 Famotidine (Pepcid) 20 mg Q12 PO Last administered on 10/04/18at 08:12; Admin Dose 20 MG; Start 09/28/18 at 21:00 Miscellaneous Information 1 ea NOTE XX ; Start 09/28/18 at 19:00 Glucose (Glutose) 15 gm Q15M PRN PO DECREASED GLUCOSE Last administered on 10/02/18at 01:50; Admin Dose 15 GM; Start 09/28/18 at 19:00 Glucose (Glutose) 22.5 gm Q15M PRN PO DECREASED GLUCOSE; Start 09/28/18 at 19:00 Dextrose (D50w Syringe) 25 ml Q15M PRN IV DECREASED GLUCOSE Last administered on 10/02/18at 07:43; Admin Dose 25 ML; Start 09/28/18 at 19:00 Dextrose (D50w Syringe) 50 ml Q15M PRN IV DECREASED GLUCOSE; Start 09/28/18 at 19:00 Glucagon (Glucagen) 1 mg Q15M PRN IM DECREASED GLUCOSE; Start 09/28/18 at 19:00 Glucose (Glutose) 15 gm Q15M PRN BUCCAL DECREASED GLUCOSE; Start 09/28/18 at 19:00 Diphenhydramine HCl (Benadryl) 25 mg Q6H PRN PO ITCHING Last administered on 10/02/18at 09:10; Admin Dose 25 MG; Start 09/28/18 at 23:30 Diagnostic Test (Pha) (Accu-Chek) 1 ea 02 XX Last administered on 10/03/18at 02:15; Admin Dose 1 EA; Start 10/01/18 at 02:00 Insulin Glargine (Lantus) 20 units DAILY@2000 SC Last administered on 10/03/18 21:08; Admin Dose 20 UNITS; Start 10/01/18 at 20:00 Hydroxyzine HCl (Atarax) 25 mg Q6H PRN PO ITCHING Last administered on 10/04/18 13:41; Admin Dose 25 MG; Start 10/02/18 at 11:00 Levofloxacin/ Dextrose 100 ml @ 100 mls/hr Q24H IVPB Last administered on 10/04/18 17:51; Admin Dose 100 MLS/HR; Start 10/03/18 at 18:30 Insulin Aspart (Novolog Insulin Pen) NOVOLOG *MILD* ALGORITHM WITH MEALS BEDTIME SC Last administered on 10/04/18 17:36; Admin Dose 3 UNIT; Start 10/03/18 at 21:00 Metoprolol Tartrate (Lopressor) 12.5 mg BID PO ; Start 10/04/18 at 21:00 REBECCA HUSTON MD Oct 04, 2018 18:58
[2018-10-04 19:46] VITALS: BP 119/59; PULSE 55; RESP 20
[2018-10-04] MEDS: METOPROLOL 25 MG TAB PO SCH (20:30)
[2018-10-04] MEDS: INSULIN GLARGINE [LANTus] (100 UNITS/ML) SYG SC SCH (20:31)
[2018-10-05] MEDS: ACCU-CHEK XX SCH (02:00)
[2018-10-05 02:07] VITALS: BP 124/60; PULSE 51; RESP 18
--- NOTE | 2018-10-05 06:48 | CONS ---
Assessment/Plan Assessment/Plan Hospital Course (Demo Recall) 58 yo female Interval hx: Total bilirubin 3.8 which is improved from 5.1. Alt/AST are slight ly higher. Alk slightly improved. WBC wnl. States she feels nauseous after eating breakfast. She felt like the food was having hard time going down. Abd Pain improved in RUQ but still is feeling 6/10 pain mid abdomen. Ambulating. Last bm yesterday, no evidence of GI bleeding 1. Abnormal LFT with significant weight loss, most probably related to cholangiocarcinoma. -Positive HIDA scan 2. Diabetes mellitus. 3. Hypertension. 4. Nicotine usage. 5. Biliary stricture 6. S/P ERCP 10/04 -old stent removed (it had migrated), 10-[place] 12 cm stent successfully deployed. -purulent matter and stones -stricture and neovascularization identified in common hepatic duct PLAN: Optimize blood sugar Reglan 5 mg PO TID PRN anti emetics Pain management Observe for worsening of symptoms Monitor LFT and WBC closely Heme onc consult Histopathology pending Continue abx In future, may need uncovered stent or Habib catheter for radiofrequency ablation of tumor Pt examined and plan of care discussed with Dr. Estrada Consultation Date/Type/Reason Admit Date/Time Sep 28, 2018 at 16:29 Initial Consult Date Date/Time of Note DATE: 10/05/18 TIME: 06:42 Exam/Review of Systems Exam Vitals Vital Signs Date Temp Pulse Resp B/P (MAP) Pulse Ox O2 O2 Flow FiO2 Time Delivery Rate 10/05/18 97.9 51 18 124/60 95 02:07 (81) 10/04/18 Room Air 13:45 Intake and Output 10/04/18 10/04/18 10/05/18 1515:00 23:00 07:00 IntakeIntake Total 1400 ml BalanceBalance 1400 ml Constitutional: alert, oriented Psych: no complaints Head: normocephalic Eyes: icteric Respiratory: clear to auscultation Cardiovascular: regular rate and rhythm Gastrointestinal: soft, tender (mid abdomen) Musculoskeletal: nl gait and stance Neurological: nl mental status, nl speech Results Result Diagram: 10/03/18 0517 10/04/18 0537 Results 24hrs Laboratory Tests Test 10/04/18 07:59 10/04/18 12:27 10/04/18 17:33 10/04/18 20:28 Bedside Glucose 194 182 256 H 199 Test 10/05/18 02:35 Bedside Glucose 137 Medications Medication Current Medications Ondansetron HCl (Zofran Inj) 4 mg Q6H PRN IV NAUSEA/VOMITING; Start 09/28/18 at 19:00 Ibuprofen (Motrin) 600 mg Q6H PRN PO .PAIN 1-3 Last administered on 10/01/18at 21 :47; Admin Dose 600 MG; Start 09/28/18 at 19:00 Famotidine (Pepcid) 20 mg Q12 PO Last administered on 10/04/18at 20:30; Admin Dose 20 MG; Start 09/28/18 at 21:00 Miscellaneous Information 1 ea NOTE XX ; Start 09/28/18 at 19:00 Glucose (Glutose) 15 gm Q15M PRN PO DECREASED GLUCOSE Last administered on 10/02/18at 01:50; Admin Dose 15 GM; Start 09/28/18 at 19:00 Glucose (Glutose) 22.5 gm Q15M PRN PO DECREASED GLUCOSE; Start 09/28/18 at 19:00 Dextrose (D50w Syringe) 25 ml Q15M PRN IV DECREASED GLUCOSE Last administered on 10/02/18at 07:43; Admin Dose 25 ML; Start 09/28/18 at 19:00 Dextrose (D50w Syringe) 50 ml Q15M PRN IV DECREASED GLUCOSE; Start 09/28/18 at 19:00 Glucagon (Glucagen) 1 mg Q15M PRN IM DECREASED GLUCOSE; Start 09/28/18 at 19:00 Glucose (Glutose) 15 gm Q15M PRN BUCCAL DECREASED GLUCOSE; Start 09/28/18 at 19:00 Diphenhydramine HCl (Benadryl) 25 mg Q6H PRN PO ITCHING Last administered on 10/02/18at 09:10; Admin Dose 25 MG; Start 09/28/18 at 23:30 Diagnostic Test (Pha) (Accu-Chek) 1 ea 02 XX Last administered on 10/03/18at 02:15; Admin Dose 1 EA; Start 10/01/18 at 02:00 Insulin Glargine (Lantus) 20 units DAILY@2000 SC Last administered on 10/04/18at 20:31; Admin Dose 20 UNITS; Start 10/01/18 at 20:00 Hydroxyzine HCl (Atarax) 25 mg Q6H PRN PO ITCHING Last administered on 10/04/18 21:07; Admin Dose 25 MG; Start 10/02/18 at 11:00 Levofloxacin/ Dextrose 100 ml @ 100 mls/hr Q24H IVPB Last administered on 10/04/18 17:51; Admin Dose 100 MLS/HR; Start 10/03/18 at 18:30 Insulin Aspart (Novolog Insulin Pen) NOVOLOG *MILD* ALGORITHM WITH MEALS BEDTIME SC Last administered on 10/04/18 20:32; Admin Dose 1 UNIT; Start 10/03/18 at 21:00 Metoprolol Tartrate (Lopressor) 12.5 mg BID PO Last administered on 10/04/18 20:30; Admin Dose 12.5 MG; Start 10/04/18 at 21:00 MILTON BROOKE Oct 05, 2018 06:48
[2018-10-05 07:42] VITALS: BP 124/60; PULSE 56; RESP 18
[2018-10-05] MEDS: INSULIN ASPART [NOVOLOG] 3 ML PEN SC SCH ×4 (08:00→21:00)
[2018-10-05] MEDS: METOPROLOL 25 MG TAB PO SCH (09:00)
[2018-10-05] MEDS: hydrOXYzine HCL 25 MG TAB PO PRN ×2 (09:46→18:29)
[2018-10-05] MEDS: FAMOTIDINE 20 MG TAB PO SCH ×2 (09:46→21:17)
[2018-10-05] MEDS: IBUPROFEN 600 MG TAB PO PRN (09:46)
--- NOTE | 2018-10-05 12:20 | PN ---
Date/Time of Note Date/Time of Note DATE: 10/05/18 TIME: 12:06 Assessment/Plan VTE Prophylaxis Risk score (from [facility])>0 risk: 3 SCD applied (from Ns): Yes Pharmacological prophylaxis: NA/contraindicated Pharm contraindication: liver dx Lines/Catheters IV Catheter Type (from [facility]): Saline Lock Assessment/Plan Hospital Course Patient complains of nausea after breakfast, still had epigastric tenderness and jaundice. Assessment/Plan -New onset of Jaundice. Dr. Estrada is following in gastroenterology consultation. Dr. Harris and Dr Main are following in general surgery consultation. Status post ERCP and migrated stent removal and placement of new stent by Dr. Estrada on 10/03/2018, follow-up on pathology. -Abnormal LFT with significant weight loss, most probably related to cholangiocarcinoma. -Hx of ERCP and stent placement in April 2018 at another facility. -Diabetes mellitus, continue Lantus and NovoLog. -Hypertension, continue metoprolol. -Hyperlipidemia Further recommendations based on clinical course. Plan of care discussed with Dr. Rizzo. Result Diagram: 10/03/18 0517 10/05/18 0522 Results 24hrs Laboratory Tests Test 10/04/18 12:27 10/04/18 17:33 10/04/18 20:28 10/05/18 02:35 Bedside Glucose 182 256 H 199 137 Test 10/05/18 05:22 10/05/18 08:20 Sodium Level 141 Potassium Level 4.1 Chloride Level 104 Carbon Dioxide Level 27 Anion Gap 10 Blood Urea Nitrogen 18 Creatinine 0.63 Est Glomerular > 60 Filtrat Rate mL/min Glucose Level 114 # Calcium Level 8.6 Total Bilirubin 3.8 H Direct Bilirubin 2.80 H Indirect Bilirubin 1.0 Aspartate Amino 121 H Transf (AST/SGOT) Alanine 76 H Aminotransferase (AL T/SGPT) Alkaline Phosphatase 706 H Total Protein 8.3 H Albumin 3.1 L Globulin 5.20 H Albumin/Globulin 0.59 Ratio Bedside Glucose 97 Exam/Review of Systems Exam Vitals Vital Signs Date Temp Pulse Resp B/P (MAP) Pulse Ox O2 O2 Flow FiO2 Time Delivery Rate 10/05/18 98.1 56 18 124/60 100 Room Air 07:42 (81) Intake and Output 10/04/18 10/04/18 10/05/18 1515:00 23:00 07:00 IntakeIntake Total 1400 ml BalanceBalance 1400 ml Exam Constitutional: alert, oriented, other (jaundiced) Respiratory: clear to auscultation Cardiovascular: nl pulses Gastrointestinal: soft, tender Musculoskeletal: nl extremities to inspection Extremities: normal pulses Neurological: nl mental status Results Results 24hrs Laboratory Tests Test 10/04/18 12:27 10/04/18 17:33 10/04/18 20:28 10/05/18 02:35 Bedside Glucose 182 256 H 199 137 Test 10/05/18 05:22 10/05/18 08:20 Sodium Level 141 Potassium Level 4.1 Chloride Level 104 Carbon Dioxide Level 27 Anion Gap 10 Blood Urea Nitrogen 18 Creatinine 0.63 Est Glomerular > 60 Filtrat Rate mL/min Glucose Level 114 # Calcium Level 8.6 Total Bilirubin 3.8 H Direct Bilirubin 2.80 H Indirect Bilirubin 1.0 Aspartate Amino 121 H Transf (AST/SGOT) Alanine 76 H Aminotransferase (AL T/SGPT) Alkaline Phosphatase 706 H Total Protein 8.3 H Albumin 3.1 L Globulin 5.20 H Albumin/Globulin 0.59 Ratio Bedside Glucose 97 Medications Medication Current Medications Ondansetron HCl (Zofran Inj) 4 mg Q6H PRN IV NAUSEA/VOMITING; Start 09/28/18 at 19:00 Ibuprofen (Motrin) 600 mg Q6H PRN PO .PAIN 1-3 Last administered on 10/05/18at 09:46; Admin Dose 600 MG; Start 09/28/18 at 19:00 Famotidine (Pepcid) 20 mg Q12 PO Last administered on 10/05/18at 09:46; Admin Dose 20 MG; Start 09/28/18 at 21:00 Miscellaneous Information 1 ea NOTE XX ; Start 09/28/18 at 19:00 Glucose (Glutose) 15 gm Q15M PRN PO DECREASED GLUCOSE Last administered on 10/02/18at 01:50; Admin Dose 15 GM; Start 09/28/18 at 19:00 Glucose (Glutose) 22.5 gm Q15M PRN PO DECREASED GLUCOSE; Start 09/28/18 at 19:00 Dextrose (D50w Syringe) 25 ml Q15M PRN IV DECREASED GLUCOSE Last administered on 10/02/18at 07:43; Admin Dose 25 ML; Start 09/28/18 at 19:00 Dextrose (D50w Syringe) 50 ml Q15M PRN IV DECREASED GLUCOSE; Start 09/28/18 at 19:00 Glucagon (Glucagen) 1 mg Q15M PRN IM DECREASED GLUCOSE; Start 09/28/18 at 19:00 Glucose (Glutose) 15 gm Q15M PRN BUCCAL DECREASED GLUCOSE; Start 09/28/18 at 19:00 Diphenhydramine HCl (Benadryl) 25 mg Q6H PRN PO ITCHING Last administered on 10/02/18 09:10; Admin Dose 25 MG; Start 09/28/18 at 23:30 Diagnostic Test (Pha) (Accu-Chek) 1 ea 02 XX Last administered on 10/03/18 02:15; Admin Dose 1 EA; Start 10/01/18 at 02:00 Insulin Glargine (Lantus) 20 units DAILY@2000 SC Last administered on 10/04/18 20:31; Admin Dose 20 UNITS; Start 10/01/18 at 20:00 Hydroxyzine HCl (Atarax) 25 mg Q6H PRN PO ITCHING Last administered on 10/05/18 09:46; Admin Dose 25 MG; Start 10/02/18 at 11:00 Levofloxacin/ Dextrose 100 ml @ 100 mls/hr Q24H IVPB Last administered on 10/04/18 17:51; Admin Dose 100 MLS/HR; Start 10/03/18 at 18:30 Insulin Aspart (Novolog Insulin Pen) NOVOLOG *MILD* ALGORITHM WITH MEALS BEDTIME SC Last administered on 10/04/18 20:32; Admin Dose 1 UNIT; Start 10/03/18 at 21:00 Metoclopramide HCl (Reglan) 5 mg TID PO ; Start 10/05/18 at 13:00 Hydralazine HCl (Apresoline) 25 mg Q6H PRN PO ELEVATED BLOOD PRESSURE; Start 10/05/18 at 12:00 EDWIN OCHOA Oct 05, 2018 12:16
[2018-10-05] MEDS: METOCLOPRAMIDE 5 MG TAB PO SCH ×2 (12:33→21:00)
[2018-10-05 14:30] VITALS: BP 123/61; PULSE 47; RESP 16
--- NOTE | 2018-10-05 14:42 | PN ---
DATE: 10/05/2018 Status post ERCP, removal of the old stent, placement of a new stent and biopsy from the common hepat ic duct strictured area. SUBJECTIVE: States that today had some abdominal pain, but with pain medication. She feels better n ow. No nausea, no vomiting. Has had bowel movement. Appetite is okay to eating food. OBJECTIVE: GENERAL: Awake, alert, sitting on the bedside. VITAL SIGNS: Temperature maximum 98.1, heart rate 56, respirations 18, blood pressure 124/60, satura tion 95% to 100% on room air. LABORATORY DATA: Today, sodium, potassium, BUN, creatinine within normal limits. Total bilirubin collins s dropped to 3.8. Before new stent, it was 5.1. Direct is 2.8. It was 4.1. Indirect is 1, which i s the same. AST, ALT and alkaline phosphatase still elevated. The pathology report states that pathologist, they have sent the specimen slides to the [facility] Pathology Department for final diagnosis. ASSESSMENT AND PLAN: Post-ERCP and placement of stent. It appears that drainage is better now. Art irubin is dropping from 5 to 1 to 3.8. Pathology report is not available yet. PLAN: Continue current care. Awaiting the result of pathology from the biopsy of the common hepatic duct strictured area and also followup of the liver function and liver enzymes. No definite plan collins s been made yet. Dictated By: RENITA VIRK MD PS/NTS Conf#: [id number] DID#: [id number] CC: MARY ENGLE MD; REBECCA HUSTON MD;*End*
[2018-10-05 15:36] VITALS: PULSE 52
[2018-10-05] MEDS: LEVOFLOXACIN 500MG/D5W (PMX) 100 ML IVPB SCH (18:30)
[2018-10-05 20:45] VITALS: BP 146/63; PULSE 51; RESP 18
[2018-10-05] MEDS: INSULIN GLARGINE [LANTus] (100 UNITS/ML) SYG SC SCH (21:18)
[2018-10-06] MEDS: ACCU-CHEK XX SCH (02:00)
[2018-10-06 02:10] VITALS: BP 132/63; PULSE 57; RESP 18
[2018-10-06] MEDS: LEVOFLOXACIN 500 MG TAB PO SCH (05:30)
[2018-10-06] MEDS: IBUPROFEN 600 MG TAB PO PRN (05:36)
--- NOTE | 2018-10-06 07:46 | CONS ---
Assessment/Plan Assessment/Plan Hospital Course (Demo Recall) 58 yo female Interval hx: Total bilirubin 3.8 which is same as yesterday. Alt/AST are slight ly down. Alk phos has gone up slightly to 731. WBC wnl. Continues to have upper mid abdominal pain, 6/10 pulling pain. Nausea improved but still has mild feeling of food stuck in throat. Prelim pathology shows suspicion for adenocarcinoma in common hepatic duct 1. Abnormal LFT with significant weight loss, most probably related to cholangiocarcinoma. -Prelim pathology shows suspicion for adenocarcinoma -Positive HIDA scan 2. Diabetes mellitus. 3. Hypertension. 4. Nicotine usage. 5. Biliary stricture 6. S/P ERCP 10/04 -old stent removed (it had migrated), 10-Luxembourger 12 cm stent successfully deployed. -purulent matter and stones -stricture and neovascularization identified in common hepatic duct Prelim pathology 10/03: Common hepatic duct, biopsy: -- Dysplastic epithelium showing infiltrative patterns, suspicious for adenocarcinoma PLAN: Heme onc consult Optimize blood sugar Reglan 5 mg PO TID PRN anti emetics Pain management Observe for worsening of symptoms Monitor LFT and WBC closely Histopathology pending Continue abx In future, may need uncovered stent or Habib catheter for radiofrequency ablation of tumor Pt examined and plan of care discussed with Dr. Estrada Consultation Date/Type/Reason Admit Date/Time Sep 28, 2018 at 16:29 Initial Consult Date Date/Time of Note DATE: 10/06/18 TIME: 07:45 Exam/Review of Systems Exam Vitals Vital Signs Date Temp Pulse Resp B/P (MAP) Pulse Ox O2 O2 Flow FiO2 Time Delivery Rate 10/06/18 98.0 06:21 10/06/18 57 18 132/63 97 02:10 (86) 10/05/18 Room Air 14:30 Intake and Output 10/05/18 10/05/18 10/06/18 1515:00 23:00 07:00 IntakeIntake Total 1750 ml BalanceBalance 1750 ml Results Result Diagram: 10/06/18 0607 10/06/18 0607 Results 24hrs Laboratory Tests Test 10/05/18 08:20 10/05/18 12:22 10/05/18 17:27 10/05/18 21:15 Bedside Glucose 97 103 151 148 Test 10/06/18 06:07 White Blood Count 6.5 Red Blood Count 3.46 L Hemoglobin 10.4 L Hematocrit 31.5 L Mean Corpuscular 91.0 Volume Mean Corpuscular 30.1 Hemoglobin Mean Corpuscular 33.0 Hemoglobin Concent Red Cell 18.0 H Distribution Width Platelet Count 427 H Mean Platelet Volume 10.1 Immature 0.800 H Granulocytes % Neutrophils % 66.9 Lymphocytes % 22.6 Monocytes % 8.0 Eosinophils % 1.1 Basophils % 0.6 Nucleated Red Blood 0.0 Cells % Immature 0.050 H Granulocytes # Neutrophils # 4.4 Lymphocytes # 1.5 Monocytes # 0.5 Eosinophils # 0.1 Basophils # 0.0 Nucleated Red Blood 0.0 Cells # Sodium Level 142 Potassium Level 3.9 Chloride Level 106 Carbon Dioxide Level 27 Anion Gap 9 Blood Urea Nitrogen 16 Creatinine 0.55 Est Glomerular > 60 Filtrat Rate mL/min Glucose Level 114 Calcium Level 9.0 Total Bilirubin 3.8 H Direct Bilirubin 2.90 H Indirect Bilirubin 0.9 Aspartate Amino 113 H Transf (AST/SGOT) Alanine 71 H Aminotransferase (AL T/SGPT) Alkaline Phosphatase 731 H Total Protein 8.2 H Albumin 3.2 L Globulin 5.00 H Albumin/Globulin 0.64 Ratio Medications Medication Current Medications Ondansetron HCl (Zofran Inj) 4 mg Q6H PRN IV NAUSEA/VOMITING; Start 09/28/18 at 19:00 Ibuprofen (Motrin) 600 mg Q6H PRN PO .PAIN 1-3 Last administered on 10/06/18at 05:36; Admin Dose 600 MG; Start 09/28/18 at 19:00 Famotidine (Pepcid) 20 mg Q12 PO Last administered on 10/05/18at 21:17; Admin Dose 20 MG; Start 09/28/18 at 21:00 Miscellaneous Information 1 ea NOTE XX ; Start 09/28/18 at 19:00 Glucose (Glutose) 15 gm Q15M PRN PO DECREASED GLUCOSE Last administered on 10/02/18at 01:50; Admin Dose 15 GM; Start 09/28/18 at 19:00 Glucose (Glutose) 22.5 gm Q15M PRN PO DECREASED GLUCOSE; Start 09/28/18 at 19:00 Dextrose (D50w Syringe) 25 ml Q15M PRN IV DECREASED GLUCOSE Last administered on 10/02/18at 07:43; Admin Dose 25 ML; Start 09/28/18 at 19:00 Dextrose (D50w Syringe) 50 ml Q15M PRN IV DECREASED GLUCOSE; Start 09/28/18 at 19:00 Glucagon (Glucagen) 1 mg Q15M PRN IM DECREASED GLUCOSE; Start 09/28/18 at 19:00 Glucose (Glutose) 15 gm Q15M PRN BUCCAL DECREASED GLUCOSE; Start 09/28/18 at 19:00 Diphenhydramine HCl (Benadryl) 25 mg Q6H PRN PO ITCHING Last administered on 10/02/18 09:10; Admin Dose 25 MG; Start 09/28/18 at 23:30 Diagnostic Test (Pha) (Accu-Chek) 1 ea 02 XX Last administered on 10/03/18 02 :15; Admin Dose 1 EA; Start 10/01/18 at 02:00 Insulin Glargine (Lantus) 20 units DAILY@2000 SC Last administered on 10/05/18 21:18; Admin Dose 20 UNITS; Start 10/01/18 at 20:00 Hydroxyzine HCl (Atarax) 25 mg Q6H PRN PO ITCHING Last administered on 10/05/18 18:29; Admin Dose 25 MG; Start 10/02/18 at 11:00 Insulin Aspart (Novolog Insulin Pen) NOVOLOG *MILD* ALGORITHM WITH MEALS BEDTIME SC Last administered on 10/05/18 18:25; Admin Dose 1 UNIT; Start 10/03/18 at 21:00 Metoclopramide HCl (Reglan) 5 mg TID PO ; Start 10/05/18 at 13:00 Hydralazine HCl (Apresoline) 25 mg Q6H PRN PO ELEVATED BLOOD PRESSURE; Start 10/05/18 at 12:00 Levofloxacin (Levaquin) 500 mg DAILY@06 PO Last administered on 10/06/18 05:30; Admin Dose 500 MG; Start 10/06/18 at 06:00; Stop 10/08/18 at 00:00 MILTON BROOKE Oct 06, 2018 07:45
[2018-10-06] MEDS: INSULIN ASPART [NOVOLOG] 3 ML PEN SC SCH ×4 (08:00→20:22)
[2018-10-06 08:28] VITALS: BP 110/72; PULSE 90; RESP 16
[2018-10-06] MEDS: METOCLOPRAMIDE 5 MG TAB PO SCH ×3 (09:03→20:20)
[2018-10-06] MEDS: FAMOTIDINE 20 MG TAB PO SCH ×2 (09:03→20:20)
--- NOTE | 2018-10-06 13:31 | CONS ---
Assessment/Plan Assessment/Plan Hospital Course (Demo Recall) #Cholangiocarcinoma -need to follow up final pathology -will check CT C/A/P to ensure no evidence of distant mets. pt states she has this done as an out patient prior to admission -pt will likely needs a laparoscopy to definitively determine if the patient has resectable disease or not. May benefit from hepatobiliary surgery consult #Biliary Stricture -s/p stent placement #CM -continue current management #HTN -continue current management Thank you for the opportunity to participate in this patients care A total of 40 minutes of face to face time was spent speaking with the patient, of which greater than 50% was spent in counseling and coordination of care and the detailed question and answer session. Consultation Date/Type/Reason Admit Date/Time Sep 28, 2018 at 16:29 Date of Consultation: Oct 06, 2018 Type of Consult oncology Reason for Consultation concern for cholangiocarcinoma Requesting Provider: MARY ENGLE MD Date/Time of Note DATE: 10/06/18 TIME: 13:19 Hx of Present Illness 58 yo female with multiple medical problems including HTN, Hyperlipidemia, and DM. PT also has a history of 35 lb weight loss since April, 5 mo fo epigastric pain and 2 weeks of painless jaundice. 09/29/18 MRCP revealed a poorly differentiated mass-like area at the region of the biliary confluence concerning for neoplasm. 10/03/17 pt underwent ercp and stent placement. Prelim path reveals a suspicion for adenocarcinoma Constitutional: diaphoresis, poor po Eyes: no complaints ENT: no complaints Respiratory: no complaints Cardiovascular: chest pain, lightheadedness Gastrointestinal: pain, decreased appetite Genitourinary: no complaints Musculoskeletal: back pain, bone/joint pain Skin: no complaints Neurologic: no complaints Past Medical History Medical History: diabetes, high cholesterol, hypertension Home Meds Reported Medications Atorvastatin Calcium* (Atorvastatin Calcium*) 20 Mg Tablet, 20 MG PO QHS, #30 TAB 09/28/18 Metoprolol Succinate* (Toprol XL*) 50 Mg Tab.er.24h, 50 MG PO DAILY, #30 TAB 09/28/18 Insulin Aspart* (Novolog Insulin Pen*) 100 Unit/Ml Soln, 0-12 SC .SLIDING SCALE AC, EA 09/28/18 Insulin Detemir (Levemir) 100 Unit/1 Ml Vial, 30 UNITS SC hs 09/28/18 Metformin* (Glucophage*) 1,000 Mg Tablet, 1000 MG PO BID, #60 TAB 09/28/18 Medications Current Medications Ondansetron HCl (Zofran Inj) 4 mg Q6H PRN IV NAUSEA/VOMITING; Start 09/28/18 at 19:00 Ibuprofen (Motrin) 600 mg Q6H PRN PO .PAIN 1-3 Last administered on 10/06/18at 05:36; Admin Dose 600 MG; Start 09/28/18 at 19:00 Famotidine (Pepcid) 20 mg Q12 PO Last administered on 10/06/18at 09:03; Admin Dose 20 MG; Start 09/28/18 at 21:00 Miscellaneous Information 1 ea NOTE XX ; Start 09/28/18 at 19:00 Glucose (Glutose) 15 gm Q15M PRN PO DECREASED GLUCOSE Last administered on 10/02/18at 01:50; Admin Dose 15 GM; Start 09/28/18 at 19:00 Glucose (Glutose) 22.5 gm Q15M PRN PO DECREASED GLUCOSE; Start 09/28/18 at 19:00 Dextrose (D50w Syringe) 25 ml Q15M PRN IV DECREASED GLUCOSE Last administered on 10/02/18at 07:43; Admin Dose 25 ML; Start 09/28/18 at 19:00 Dextrose (D50w Syringe) 50 ml Q15M PRN IV DECREASED GLUCOSE; Start 09/28/18 at 19:00 Glucagon (Glucagen) 1 mg Q15M PRN IM DECREASED GLUCOSE; Start 09/28/18 at 19:00 Glucose (Glutose) 15 gm Q15M PRN BUCCAL DECREASED GLUCOSE; Start 09/28/18 at 19:00 Diphenhydramine HCl (Benadryl) 25 mg Q6H PRN PO ITCHING Last administered on 10/02/18at 09:10; Admin Dose 25 MG; Start 09/28/18 at 23:30 Diagnostic Test (Pha) (Accu-Chek) 1 ea 02 XX Last administered on 10/03/18at 02:15; Admin Dose 1 EA; Start 10/01/18 at 02:00 Insulin Glargine (Lantus) 20 units DAILY@2000 SC Last administered on 10/05/18at 21:18; Admin Dose 20 UNITS; Start 10/01/18 at 20:00 Hydroxyzine HCl (Atarax) 25 mg Q6H PRN PO ITCHING Last administered on 10/05/18at 18:29; Admin Dose 25 MG; Start 10/02/18 at 11:00 Insulin Aspart (Novolog Insulin Pen) NOVOLOG *MILD* ALGORITHM WITH MEALS BEDTIME SC Last administered on 10/06/18at 12:05; Admin Dose 1 UNIT; Start 10/03/18 at 21:00 Metoclopramide HCl (Reglan) 5 mg TID PO Last administered on 10/06/18at 09:03; Admin Dose 5 MG; Start 10/05/18 at 13:00 Hydralazine HCl (Apresoline) 25 mg Q6H PRN PO ELEVATED BLOOD PRESSURE; Start 10/05/18 at 12:00 Levofloxacin (Levaquin) 500 mg DAILY@06 PO Last administered on 10/06/18at 05:30; Admin Dose 500 MG; Start 10/06/18 at 06:00; Stop 10/08/18 at 00:00 Allergies: Coded Allergies: morphine (Verified Allergy, Unknown, 09/28/18) Uncoded Allergies: CONTRAST (Allergy, Unknown, 09/28/18) Past Surgical History Past Surgical Hx: other (Status post right eye surgery, s/p ERCP and stent placement in april 2018) Family History Significant Family History: no pertinent family hx Social History Alcohol Use: none Smoking Status: Current every day smoker Drug Use: none Exam/Review of Systems Exam Vitals Vital Signs Date Temp Pulse Resp B/P (MAP) Pulse Ox O2 O2 Flow FiO2 Time Delivery Rate 10/06/18 98.3 90 16 110/72 96 08:28 (85) 10/05/18 Room Air 14:30 Intake and Output 10/05/18 10/05/18 10/06/18 1515:00 23:00 07:00 IntakeIntake Total 1750 ml BalanceBalance 1750 ml Constitutional: alert, oriented Psych: no complaints Head: normocephalic ENMT: nl external ears & nose Neck: supple Respiratory: clear to auscultation Cardiovascular: regular rate and rhythm Gastrointestinal: soft Musculoskeletal: nl extremities to inspection Extremities: normal pulses Results Result Diagram: 10/06/18 0607 10/06/18 0607 Results 24hrs Laboratory Tests Test 10/05/18 17:27 10/05/18 21:15 10/06/18 06:07 10/06/18 07:59 Bedside Glucose 151 148 70 White Blood Count 6.5 Red Blood Count 3.46 L Hemoglobin 10.4 L Hematocrit 31.5 L Mean Corpuscular 91.0 Volume Mean Corpuscular 30.1 Hemoglobin Mean Corpuscular 33.0 Hemoglobin Concent Red Cell 18.0 H Distribution Width Platelet Count 427 H Mean Platelet Volume 10.1 Immature 0.800 H Granulocytes % Neutrophils % 66.9 Lymphocytes % 22.6 Monocytes % 8.0 Eosinophils % 1.1 Basophils % 0.6 Nucleated Red Blood 0.0 Cells % Immature 0.050 H Granulocytes # Neutrophils # 4.4 Lymphocytes # 1.5 Monocytes # 0.5 Eosinophils # 0.1 Basophils # 0.0 Nucleated Red Blood 0.0 Cells # Sodium Level 142 Potassium Level 3.9 Chloride Level 106 Carbon Dioxide Level 27 Anion Gap 9 Blood Urea Nitrogen 16 Creatinine 0.55 Est Glomerular > 60 Filtrat Rate mL/min Glucose Level 114 Calcium Level 9.0 Total Bilirubin 3.8 H Direct Bilirubin 2.90 H Indirect Bilirubin 0.9 Aspartate Amino 113 H Transf (AST/SGOT) Alanine 71 H Aminotransferase (AL T/SGPT) Alkaline Phosphatase 731 H Total Protein 8.2 H Albumin 3.2 L Globulin 5.00 H Albumin/Globulin 0.64 Ratio Test 10/06/18 12:04 Bedside Glucose 146 Medications Medication Current Medications Ondansetron HCl (Zofran Inj) 4 mg Q6H PRN IV NAUSEA/VOMITING; Start 09/28/18 at 19:00 Ibuprofen (Motrin) 600 mg Q6H PRN PO .PAIN 1-3 Last administered on 10/06/18at 05:36; Admin Dose 600 MG; Start 09/28/18 at 19:00 Famotidine (Pepcid) 20 mg Q12 PO Last administered on 10/06/18at 09:03; Admin Dose 20 MG; Start 09/28/18 at 21:00 Miscellaneous Information 1 ea NOTE XX ; Start 09/28/18 at 19:00 Glucose (Glutose) 15 gm Q15M PRN PO DECREASED GLUCOSE Last administered on 10/02/18at 01:50; Admin Dose 15 GM; Start 09/28/18 at 19:00 Glucose (Glutose) 22.5 gm Q15M PRN PO DECREASED GLUCOSE; Start 09/28/18 at 19:00 Dextrose (D50w Syringe) 25 ml Q15M PRN IV DECREASED GLUCOSE Last administered on 10/02/18at 07:43; Admin Dose 25 ML; Start 09/28/18 at 19:00 Dextrose (D50w Syringe) 50 ml Q15M PRN IV DECREASED GLUCOSE; Start 09/28/18 at 19:00 Glucagon (Glucagen) 1 mg Q15M PRN IM DECREASED GLUCOSE; Start 09/28/18 at 19:00 Glucose (Glutose) 15 gm Q15M PRN BUCCAL DECREASED GLUCOSE; Start 09/28/18 at 19:00 Diphenhydramine HCl (Benadryl) 25 mg Q6H PRN PO ITCHING Last administered on 10/02/18 09:10; Admin Dose 25 MG; Start 09/28/18 at 23:30 Diagnostic Test (Pha) (Accu-Chek) 1 ea 02 XX Last administered on 10/03/18at 02 :15; Admin Dose 1 EA; Start 10/01/18 at 02:00 Insulin Glargine (Lantus) 20 units DAILY@2000 SC Last administered on 10/05/18 21:18; Admin Dose 20 UNITS; Start 10/01/18 at 20:00 Hydroxyzine HCl (Atarax) 25 mg Q6H PRN PO ITCHING Last administered on 10/05/18 18:29; Admin Dose 25 MG; Start 10/02/18 at 11:00 Insulin Aspart (Novolog Insulin Pen) NOVOLOG *MILD* ALGORITHM WITH MEALS BEDTIME SC Last administered on 10/06/18 12:05; Admin Dose 1 UNIT; Start 10/03/18 at 21:00 Metoclopramide HCl (Reglan) 5 mg TID PO Last administered on 10/06/18 09:03; Admin Dose 5 MG; Start 10/05/18 at 13:00 Hydralazine HCl (Apresoline) 25 mg Q6H PRN PO ELEVATED BLOOD PRESSURE; Start 10/05/18 at 12:00 Levofloxacin (Levaquin) 500 mg DAILY@06 PO Last administered on 10/06/18 05:30; Admin Dose 500 MG; Start 10/06/18 at 06:00; Stop 10/08/18 at 00:00 FELY CARPENTER M.D. Oct 06, 2018:29
--- NOTE | 2018-10-06 13:55 | PN ---
Date/Time of Note Date/Time of Note DATE: 10/06/18 TIME: 13:50 Assessment/Plan VTE Prophylaxis Risk [place] (from [facility]0 risk: 3 SCD applied (from [facility] [place]): Yes Pharmacological prophylaxis: NA/contraindicated Pharm contraindication: liver dx Lines/Catheters IV Catheter Type (from [email or web address] [place] Assessment/Plan Hospital Course Patient continues to have nausea, poor appetite, jaundiced. Dr. Rivera is asked to see patient in oncology consultation. Assessment/Plan -New onset of Jaundice. Dr. Estrada is following in gastroenterology consultation. Dr. Harris and Dr Main are following in general surgery consultation. Status post ERCP and migrated stent removal and placement of new stent by Dr. Estrada on 10/03/2018, follow-up on pathology. -Abnormal LFT with significant weight loss, most probably related to cholangiocarcinoma. -Hx of ERCP and stent placement in April 2018 at another facility. -Diabetes mellitus, continue Lantus and NovoLog. -Hypertension, continue metoprolol. -Hyperlipidemia Further recommendations based on clinical course. Plan of care discussed with Dr. Rizzo. Result Diagram: 10/06/18 0607 10/06/18 0607 Results 24hrs Laboratory Tests Test 10/05/18 17:27 10/05/18 21:15 10/06/18 06:07 10/06/18 07:59 Bedside Glucose 151 148 70 White Blood Count 6.5 Red Blood Count 3.46 L Hemoglobin 10.4 L Hematocrit 31.5 L Mean Corpuscular 91.0 Volume Mean Corpuscular 30.1 Hemoglobin Mean Corpuscular 33.0 Hemoglobin Concent Red Cell 18.0 H Distribution Width Platelet Count 427 H Mean Platelet Volume 10.1 Immature 0.800 H Granulocytes % Neutrophils % 66.9 Lymphocytes % 22.6 Monocytes % 8.0 Eosinophils % 1.1 Basophils % 0.6 Nucleated Red Blood 0.0 Cells % Immature 0.050 H Granulocytes # Neutrophils # 4.4 Lymphocytes # 1.5 Monocytes # 0.5 Eosinophils # 0.1 Basophils # 0.0 Nucleated Red Blood 0.0 Cells # Sodium Level 142 Potassium Level 3.9 Chloride Level 106 Carbon Dioxide Level 27 Anion Gap 9 Blood Urea Nitrogen 16 Creatinine 0.55 Est Glomerular > 60 Filtrat Rate mL/min Glucose Level 114 Calcium Level 9.0 Total Bilirubin 3.8 H Direct Bilirubin 2.90 H Indirect Bilirubin 0.9 Aspartate Amino 113 H Transf (AST/SGOT) Alanine 71 H Aminotransferase (AL T/SGPT) Alkaline Phosphatase 731 H Total Protein 8.2 H Albumin 3.2 L Globulin 5.00 H Albumin/Globulin 0.64 Ratio Test 10/06/18 12:04 Bedside Glucose 146 Exam/Review of Systems Exam Vitals Vital Signs Date Temp Pulse Resp B/P (MAP) Pulse Ox O2 O2 Flow FiO2 Time Delivery Rate 10/06/18 98.3 90 16 110/72 96 08:28 (85) 10/05/18 Room Air 14:30 Intake and Output 10/05/18 10/05/18 10/06/18 1515:00 23:00 07:00 IntakeIntake Total 1750 ml BalanceBalance 1750 ml Exam Constitutional: alert, oriented, other (jaundiced) Respiratory: clear to auscultation Cardiovascular: nl pulses Gastrointestinal: soft, tender Musculoskeletal: nl extremities to inspection Extremities: normal pulses Neurological: nl mental status Results Results 24hrs Laboratory Tests Test 10/05/18 17:27 10/05/18 21:15 10/06/18 06:07 10/06/18 07:59 Bedside Glucose 151 148 70 White Blood Count 6.5 Red Blood Count 3.46 L Hemoglobin 10.4 L Hematocrit 31.5 L Mean Corpuscular 91.0 Volume Mean Corpuscular 30.1 Hemoglobin Mean Corpuscular 33.0 Hemoglobin Concent Red Cell 18.0 H Distribution Width Platelet Count 427 H Mean Platelet Volume 10.1 Immature 0.800 H Granulocytes % Neutrophils % 66.9 Lymphocytes % 22.6 Monocytes % 8.0 Eosinophils % 1.1 Basophils % 0.6 Nucleated Red Blood 0.0 Cells % Immature 0.050 H Granulocytes # Neutrophils # 4.4 Lymphocytes # 1.5 Monocytes # 0.5 Eosinophils # 0.1 Basophils # 0.0 Nucleated Red Blood 0.0 Cells # Sodium Level 142 Potassium Level 3.9 Chloride Level 106 Carbon Dioxide Level 27 Anion Gap 9 Blood Urea Nitrogen 16 Creatinine 0.55 Est Glomerular > 60 Filtrat Rate mL/min Glucose Level 114 Calcium Level 9.0 Total Bilirubin 3.8 H Direct Bilirubin 2.90 H Indirect Bilirubin 0.9 Aspartate Amino 113 H Transf (AST/SGOT) Alanine 71 H Aminotransferase (AL T/SGPT) Alkaline Phosphatase 731 H Total Protein 8.2 H Albumin 3.2 L Globulin 5.00 H Albumin/Globulin 0.64 Ratio Test 10/06/18 12:04 Bedside Glucose 146 Medications Medication Current Medications Ondansetron HCl (Zofran Inj) 4 mg Q6H PRN IV NAUSEA/VOMITING; Start 09/28/18 at 19:00 Ibuprofen (Motrin) 600 mg Q6H PRN PO .PAIN 1-3 Last administered on 10/06/18at 05:36; Admin Dose 600 MG; Start 09/28/18 at 19:00 Famotidine (Pepcid) 20 mg Q12 PO Last administered on 10/06/18 09:03; Admin Dose 20 MG; Start 09/28/18 at 21:00 Miscellaneous Information 1 ea NOTE XX ; Start 09/28/18 at 19:00 Glucose (Glutose) 15 gm Q15M PRN PO DECREASED GLUCOSE Last administered on 10/02/18at 01:50; Admin Dose 15 GM; Start 09/28/18 at 19:00 Glucose (Glutose) 22.5 gm Q15M PRN PO DECREASED GLUCOSE; Start 09/28/18 at 19:00 Dextrose (D50w Syringe) 25 ml Q15M PRN IV DECREASED GLUCOSE Last administered on 10/02/18at 07:43; Admin Dose 25 ML; Start 09/28/18 at 19:00 Dextrose (D50w Syringe) 50 ml Q15M PRN IV DECREASED GLUCOSE; Start 09/28/18 at 19:00 Glucagon (Glucagen) 1 mg Q15M PRN IM DECREASED GLUCOSE; Start 09/28/18 at 19:00 Glucose (Glutose) 15 gm Q15M PRN BUCCAL DECREASED GLUCOSE; Start 09/28/18 at 19:00 Diphenhydramine HCl (Benadryl) 25 mg Q6H PRN PO ITCHING Last administered on 10/02/18at 09:10; Admin Dose 25 MG; Start 09/28/18 at 23:30 Diagnostic Test (Pha) (Accu-Chek) 1 ea 02 XX Last administered on 10/03/18at 02:15; Admin Dose 1 EA; Start 10/01/18 at 02:00 Insulin Glargine (Lantus) 20 units DAILY@2000 SC Last administered on 10/05/18at 21:18; Admin Dose 20 UNITS; Start 10/01/18 at 20:00 Hydroxyzine HCl (Atarax) 25 mg Q6H PRN PO ITCHING Last administered on 10/05/18at 18:29; Admin Dose 25 MG; Start 10/02/18 at 11:00 Insulin Aspart (Novolog Insulin Pen) NOVOLOG *MILD* ALGORITHM WITH MEALS BEDTIME SC Last administered on 10/06/18 12:05; Admin Dose 1 UNIT; Start 10/03/18 at 21:00 Metoclopramide HCl (Reglan) 5 mg TID PO Last administered on 10/06/18at 09:03; Admin Dose 5 MG; Start 10/05/18 at 13:00 Hydralazine HCl (Apresoline) 25 mg Q6H PRN PO ELEVATED BLOOD PRESSURE; Start 10/05/18 at 12:00 Levofloxacin (Levaquin) 500 mg DAILY@06 PO Last administered on 10/06/18at 05:30; Admin Dose 500 MG; Start 10/06/18 at 06:00; Stop 10/08/18 at 00:00 EDWIN OCHOA Oct 06, 2018 13:55
[2018-10-06 14:00] VITALS: BP 120/64; PULSE 54; RESP 18
--- NOTE | 2018-10-06 16:44 | PN ---
DATE: 10/06/2018 SUBJECTIVE: No new events, no complaint. OBJECTIVE: GENERAL: Awake, alert, oriented as before, in no acute distress. VITAL SIGNS: Today maximum 98.8, heart rate 54, but there has been 1 episode which has recorded as 9 0, blood pressure 120/64, respiration 18, saturation 96% to 99% on room air. HEART: Regular. LUNGS: Clear. ABDOMEN: Soft. Some tenderness in epigastric area. SKIN: Jaundiced still. LABORATORY DATA: Today, WBC 6500 with 66% segmented, hemoglobin stable 10.4, hematocrit 31.5. Chemi stry: Sodium, potassium, BUN, creatinine within normal limits. Total bilirubin is same as yesterday at 3.8, direct bilirubin 3.90, indirect 0.9. AST, ALT, alkaline phosphatase, albumin are the same a s before. Albumin is 3.2. The pathology report which was sent to [facility] has not back yet. ASSESSMENT AND PLAN: Awaiting the results of pathology from biopsy from the common hepatic duct biop sies. Consultation from hematology/oncology has been requested. I discussed among the team and make a decision later on in the following days in regard to possible surgery or whether it should be done for this patient, but with the assumption that this is a malignant process which has been going over there has caused occlusion of the right hepatic duct and cystic duct. Dictated By: RENITA VIRK MD PS/NTS Conf#: [id number] DID#: [id number] CC: MARY ENGLE MD; REBECCA HUSTON MD;*EndCC*
[2018-10-06 20:00] VITALS: BP 140/70; PULSE 52; RESP 18
[2018-10-06] MEDS: INSULIN GLARGINE [LANTus] (100 UNITS/ML) SYG SC SCH (20:22)
[2018-10-06] MEDS: hydrOXYzine HCL 25 MG TAB PO PRN (20:29)
[2018-10-07] MEDS: ACCU-CHEK XX SCH (01:05)
[2018-10-07 02:00] VITALS: BP 129/59; PULSE 52; RESP 18
[2018-10-07] MEDS: LEVOFLOXACIN 500 MG TAB PO SCH (05:52)
[2018-10-07] MEDS: INSULIN ASPART [NOVOLOG] 3 ML PEN SC SCH ×4 (08:00→21:22)
[2018-10-07 09:09] VITALS: BP 142/65; PULSE 54; RESP 18
[2018-10-07] MEDS: METOCLOPRAMIDE 5 MG TAB PO SCH ×2 (09:55→13:00)
[2018-10-07] MEDS: FAMOTIDINE 20 MG TAB PO SCH ×2 (09:55→21:21)
[2018-10-07] MEDS: hydrOXYzine HCL 25 MG TAB PO PRN ×2 (10:01→21:21)
--- NOTE | 2018-10-07 11:12 | CONS ---
Assessment/Plan Assessment/Plan Hospital Course (Demo Recall) #Cholangiocarcinoma -need to follow up final pathology. prelim suspicious for adenocarcinoma -MRCP done 07/27/18 reveals questionable filling defects in yasemin left hepatic duct and stent in place. -09/20/[address] reveals FDG accumulation into the gallbladder fossa and into the anterior aspect of the liver both at the left and right hepatic lobes. a small anterior cardiophrenic LN is also noted -pt will likely needs a laparoscopy vs laparotomy to definitively determine if the patient has resectable disease or not. May benefit from hepatobiliary surgery consult #Biliary Stricture -s/p stent placement #CM -continue current management #HTN -continue current management Thank you for the opportunity to participate in this patients care A total of 40 minutes of face to face time was spent speaking with the patient, of which greater than 50% was spent in counseling and coordination of care and the detailed question and answer session. Consultation Date/Type/Reason Admit Date/Time Sep 28, 2018 at 16:29 Initial Consult Date 10/06/18 Type of Consult oncology Reason for Consultation cholangiocarcinoma Requesting Provider: MARY ENGLE MD Date/Time of Note DATE: 10/07/18 TIME: 11:07 24 HR Interval Summary Free Text/Dictation no acute overnight events. T bili is stable at 3.2 Exam/Review of Systems Exam Vitals Vital Signs Date Temp Pulse Resp B/P (MAP) Pulse Ox O2 O2 Flow FiO2 Time Delivery Rate 10/07/18 98.4 54 18 142/65 99 Room Air 09:09 (90) Intake and Output 10/06/18 10/06/18 10/07/18 1515:00 23:00 07:00 IntakeIntake Total 240 ml 340 ml BalanceBalance 240 ml 340 ml Constitutional: alert, oriented Psych: no complaints, nl mood/affect Head: normocephalic Eyes: nl conjunctiva, icteric ENMT: nl external ears & nose Neck: supple Respiratory: clear to auscultation Cardiovascular: regular rate and rhythm Gastrointestinal: soft Musculoskeletal: nl extremities to inspection Results Result Diagram: 10/06/18 0607 10/07/18 0524 Results 24hrs Laboratory Tests Test 10/06/18 12:04 10/06/18 17:40 10/06/18 20:19 10/07/18 05:24 Bedside Glucose 146 104 143 Sodium Level 141 Potassium Level 4.2 Chloride Level 109 Carbon Dioxide Level 23 Anion Gap 9 Blood Urea Nitrogen 14 Creatinine 0.50 Est Glomerular > 60 Filtrat Rate mL/min Glucose Level 82 Calcium Level 9.1 Total Bilirubin 3.2 H Direct Bilirubin 2.20 #H Indirect Bilirubin 1.0 Aspartate Amino 118 H Transf (AST/SGOT) Alanine 66 Aminotransferase (AL T/SGPT) Alkaline Phosphatase 701 H Total Protein 8.2 H Albumin 3.2 L Globulin 5.00 H Albumin/Globulin 0.64 Ratio Test 10/07/18 08:00 Bedside Glucose 79 Medications Medication Current Medications Ondansetron HCl (Zofran Inj) 4 mg Q6H PRN IV NAUSEA/VOMITING; Start 09/28/18 at 19:00 Ibuprofen (Motrin) 600 mg Q6H PRN PO .PAIN 1-3 Last administered on 10/06/18at 05:36; Admin Dose 600 MG; Start 09/28/18 at 19:00 Famotidine (Pepcid) 20 mg Q12 PO Last administered on 10/07/18at 09:55; Admin Dose 20 MG; Start 09/28/18 at 21:00 Miscellaneous Information 1 ea NOTE XX ; Start 09/28/18 at 19:00 Glucose (Glutose) 15 gm Q15M PRN PO DECREASED GLUCOSE Last administered on 10/02/18at 01:50; Admin Dose 15 GM; Start 09/28/18 at 19:00 Glucose (Glutose) 22.5 gm Q15M PRN PO DECREASED GLUCOSE; Start 09/28/18 at 19:00 Dextrose (D50w Syringe) 25 ml Q15M PRN IV DECREASED GLUCOSE Last administered on 10/02/18at 07:43; Admin Dose 25 ML; Start 09/28/18 at 19:00 Dextrose (D50w Syringe) 50 ml Q15M PRN IV DECREASED GLUCOSE; Start 09/28/18 at 19:00 Glucagon (Glucagen) 1 mg Q15M PRN IM DECREASED GLUCOSE; Start 09/28/18 at 19:00 Glucose (Glutose) 15 gm Q15M PRN BUCCAL DECREASED GLUCOSE; Start 09/28/18 at 19:00 Diphenhydramine HCl (Benadryl) 25 mg Q6H PRN PO ITCHING Last administered on 10/02/18at 09:10; Admin Dose 25 MG; Start 09/28/18 at 23:30 Diagnostic Test (Pha) (Accu-Chek) 1 ea 02 XX Last administered on 10/03/18at 02:15; Admin Dose 1 EA; Start 10/01/18 at 02:00 Insulin Glargine (Lantus) 20 units DAILY@2000 SC Last administered on 10/06/18at 20:22; Admin Dose 20 UNITS; Start 10/01/18 at 20:00 Hydroxyzine HCl (Atarax) 25 mg Q6H PRN PO ITCHING Last administered on 10/07/18at 10:01; Admin Dose 25 MG; Start 10/02/18 at 11:00 Insulin Aspart (Novolog Insulin Pen) NOVOLOG *MILD* ALGORITHM WITH MEALS BEDTIM E SC Last administered on 10/06/18at 12:05; Admin Dose 1 UNIT; Start 10/03/18 at 21:00 Metoclopramide HCl (Reglan) 5 mg TID PO Last administered on 10/07/18at 09:55; Admin Dose 5 MG; Start 10/05/18 at 13:00 Hydralazine HCl (Apresoline) 25 mg Q6H PRN PO ELEVATED BLOOD PRESSURE; Start 10/05/18 at 12:00 Levofloxacin (Levaquin) 500 mg DAILY@06 PO Last administered on 10/07/18at 05:52; Admin Dose 500 MG; Start 10/06/18 at 06:00; Stop 10/08/18 at 00:00 FELY CARPENTER M.D. Oct 07, 2018 11:12
[2018-10-07 14:40] VITALS: BP 119/65; PULSE 62; RESP 18
[2018-10-07] MEDS ORDERED: METOCLOPRAMIDE 5 MG TAB PO PRN (16:00)
--- NOTE | 2018-10-07 16:32 | PN ---
Date/Time of Note Date/Time of Note DATE: 10/07/18 TIME: 16:24 Assessment/Plan VTE Prophylaxis Risk score (from Ns)>0 risk: 3 SCD applied (from Ns): Yes Pharmacological prophylaxis: NA/contraindicated Pharm contraindication: liver dx Lines/Catheters IV [facility]ter [facility]from [facility] Saline Lock Assessment/Plan Hospital Course Patient continues to have nausea, however able to eat most of the breakfast and lunch, continue Reglan. Assessment/Plan -New onset of Jaundice. Dr. Estrada is following in gastroenterology consultation. Dr. Harris and Dr Main are following in general surgery consultation. Status post ERCP and migrated stent removal and placement of new stent by Dr. Estrada on 10/03/2018, follow-up on final pathology. -Abnormal LFT with significant weight loss, most probably related to cholangiocarcinoma. Dr. Rivera is following in oncology consultation. -Hx of ERCP and stent placement in April 2018 at another facility. -Diabetes mellitus, continue Lantus and NovoLog. -Hypertension, continue metoprolol. -Hyperlipidemia Further recommendations based on clinical course. Plan of care discussed with Dr. Rizzo. Result Diagram: 10/06/18 0607 10/07/18 0524 Results 24hrs Laboratory Tests Test 10/06/18 17:40 10/06/18 20:19 10/07/18 05:24 10/07/18 08:00 Bedside Glucose 104 143 79 Sodium Level 141 Potassium Level 4.2 Chloride Level 109 Carbon Dioxide Level 23 Anion Gap 9 Blood Urea Nitrogen 14 Creatinine 0.50 Est Glomerular > 60 Filtrat Rate mL/min Glucose Level 82 Calcium Level 9.1 Total Bilirubin 3.2 H Direct Bilirubin 2.20 #H Indirect Bilirubin 1.0 Aspartate Amino 118 H Transf (AST/SGOT) Alanine 66 Aminotransferase (AL T/SGPT) Alkaline Phosphatase 701 H Total Protein 8.2 H Albumin 3.2 L Globulin 5.00 H Albumin/Globulin 0.64 Ratio Test 10/07/18 11:58 Bedside Glucose 118 Exam/Review of Systems Exam Vitals Vital Signs Date Temp Pulse Resp B/P (MAP) Pulse Ox O2 O2 Flow FiO2 Time Delivery Rate 10/07/18 98.9 62 18 119/65 100 Room Air 14:40 (83) Intake and Output 10/06/18 10/06/18 10/07/18 1515:00 23:00 07:00 IntakeIntake Total 240 ml 340 ml BalanceBalance 240 ml 340 ml Exam Constitutional: alert, oriented, other (jaundiced) Respiratory: clear to auscultation Cardiovascular: nl pulses Gastrointestinal: soft, tender Musculoskeletal: nl extremities to inspection Extremities: normal pulses Neurological: nl mental status Results Results 24hrs Laboratory Tests Test 10/06/18 17:40 10/06/18 20:19 10/07/18 05:24 10/07/18 08:00 Bedside Glucose 104 143 79 Sodium Level 141 Potassium Level 4.2 Chloride Level 109 Carbon Dioxide Level 23 Anion Gap 9 Blood Urea Nitrogen 14 Creatinine 0.50 Est Glomerular > 60 Filtrat Rate mL/min Glucose Level 82 Calcium Level 9.1 Total Bilirubin 3.2 H Direct Bilirubin 2.20 #H Indirect Bilirubin 1.0 Aspartate Amino 118 H Transf (AST/SGOT) Alanine 66 Aminotransferase (AL T/SGPT) Alkaline Phosphatase 701 H Total Protein 8.2 H Albumin 3.2 L Globulin 5.00 H Albumin/Globulin 0.64 Ratio Test 10/07/18 11:58 Bedside Glucose 118 Medications Medication Current Medications Ondansetron HCl (Zofran Inj) 4 mg Q6H PRN IV NAUSEA/VOMITING; Start 09/28/18 at 19:00 Ibuprofen (Motrin) 600 mg Q6H PRN PO .PAIN 1-3 Last administered on 10/06/18at 05:36; Admin Dose 600 MG; Start 09/28/18 at 19:00 Famotidine (Pepcid) 20 mg Q12 PO Last administered on 10/07/18at 09:55; Admin Dose 20 MG; Start 09/28/18 at 21:00 Miscellaneous Information 1 ea NOTE XX ; Start 09/28/18 at 19:00 Glucose (Glutose) 15 gm Q15M PRN PO DECREASED GLUCOSE Last administered on 10/02/18at 01:50; Admin Dose 15 GM; Start 09/28/18 at 19:00 Glucose (Glutose) 22.5 gm Q15M PRN PO DECREASED GLUCOSE; Start 09/28/18 at 19:00 Dextrose (D50w Syringe) 25 ml Q15M PRN IV DECREASED GLUCOSE Last administered on 10/02/18at 07:43; Admin Dose 25 ML; Start 09/28/18 at 19:00 Dextrose (D50w Syringe) 50 ml Q15M PRN IV DECREASED GLUCOSE; Start 09/28/18 at 19:00 Glucagon (Glucagen) 1 mg Q15M PRN IM DECREASED GLUCOSE; Start 09/28/18 at 19:00 Glucose (Glutose) 15 gm Q15M PRN BUCCAL DECREASED GLUCOSE; Start 09/28/18 at 19:00 Diphenhydramine HCl (Benadryl) 25 mg Q6H PRN PO ITCHING Last administered on 10/02/18at 09:10; Admin Dose 25 MG; Start 09/28/18 at 23:30 Diagnostic Test (Pha) (Accu-Chek) 1 ea 02 XX Last administered on 10/03/18 02:15; Admin Dose 1 EA; Start 10/01/18 at 02:00 Insulin Glargine (Lantus) 20 units DAILY@2000 SC Last administered on 10/06/18at 20:22; Admin Dose 20 UNITS; Start 10/01/18 at 20:00 Hydroxyzine HCl (Atarax) 25 mg Q6H PRN PO ITCHING Last administered on 10/07/18at 10:01; Admin Dose 25 MG; Start 10/02/18 at 11:00 Insulin Aspart (Novolog Insulin Pen) NOVOLOG *MILD* ALGORITHM WITH MEALS BEDTIME SC Last administered on 10/06/18 12:05; Admin Dose 1 UNIT; Start 10/03/18 at 21:00 Hydralazine HCl (Apresoline) 25 mg Q6H PRN PO ELEVATED BLOOD PRESSURE; Start 10/05/18 at 12:00 Levofloxacin (Levaquin) 500 mg DAILY@06 PO Last administered on 10/07/18 05:52; Admin Dose 500 MG; Start 10/06/18 at 06:00; Stop 10/08/18 at 00:00 Metoclopramide HCl (Reglan) 5 mg TID PRN PO NAUSEA AND/OR VOMITING; Start 10/07/18 at 16:00 EDWIN OCHOA Oct 07, 2018 16:32
--- NOTE | 2018-10-07 18:00 | CONS ---
Assessment/Plan Assessment/Plan Assessment/Plan (Daily) Interval hx: Total bilirubin 3.8 which is same as yesterday. Alt/AST are slightly down. Alk phos has gone up slightly to 731. WBC wnl. Continues to have upper mid abdominal pain, 6/10 pulling pain. Nausea improved but still has mild feeling of food stuck in throat. Prelim pathology shows suspicion for adenocarcinoma in common hepatic duct 1. Abnormal LFT with significant weight loss, most probably related to cholangiocarcinoma. -Prelim pathology shows suspicion for adenocarcinoma -Positive HIDA scan 2. Diabetes mellitus. 3. Hypertension. 4. Nicotine usage. 5. Biliary stricture 6. S/P ERCP 10/04 -old stent removed (it had migrated), 10-Scott[place] 12 cm stent successfully deployed. -purulent matter and stones -stricture and neovascularization identified in common hepatic duct Prelim pathology 10/03: Common hepatic duct, biopsy: -- Dysplastic epithelium showing infiltrative patterns, suspicious for adenocarcinoma PLAN: Heme onc consult Optimize blood sugar Reglan 5 mg PO TID PRN anti emetics Pain management Observe for worsening of symptoms Monitor LFT and WBC closely Histopathology pending Continue abx In future, may need uncovered stent or Habib catheter for radiofrequency ablation of tumor if surgery is not contemplated Megace to stimulate the appetite Consultation Date/Type/Reason Admit Date/Time Sep 28, 2018 at 16:29 Initial Consult Date Requesting Provider: MARY ENGLE MD Date/Time of Note DATE: 10/07/18 TIME: 18:00 24 HR Interval Summary Constitutional: poor po Exam/Review of Systems Exam Vitals Vital Signs Date Temp Pulse Resp B/P (MAP) Pulse Ox O2 O2 Flow FiO2 Time Delivery Rate 10/07/18 98.9 62 18 119/65 100 Room Air 14:40 (83) Intake and Output 10/06/18 10/06/18 10/07/18 1515:00 23:00 07:00 IntakeIntake Total 240 ml 340 ml BalanceBalance 240 ml 340 ml Constitutional: alert, oriented, well developed Psych: no complaints, nl mood/affect Head: normocephalic, atraumatic Eyes: nl conjunctiva, EOMI, nl lids, nl sclera, PERRL ENMT: nl external ears & nose, nl lips & teeth, nl nasal mucosa & septum Neck: supple, non-tender Respiratory: clear to auscultation, normal air movement Cardiovascular: regular rate and rhythm, nl pulses Gastrointestinal: soft, nl liver, spleen, non-tender Musculoskeletal: nl extremities to inspection, nl gait and stance Extremities: normal pulses Neurological: BOILER TUBE BLOWER II-XII intact, nl mental status, nl speech, nl strength Skin: nl turgor; No rash or lesions Lymph: nl lymph nodes Results Result Diagram: 10/06/18 0607 10/07/18 0524 Results 24hrs Laboratory Tests Test 10/06/18 20:19 10/07/18 05:24 10/07/18 08:00 10/07/18 11:58 Bedside Glucose 143 79 118 Sodium Level 141 Potassium Level 4.2 Chloride Level 109 Carbon Dioxide Level 23 Anion Gap 9 Blood Urea Nitrogen 14 Creatinine 0.50 Est Glomerular > 60 Filtrat Rate mL/min Glucose Level 82 Calcium Level 9.1 Total Bilirubin 3.2 H Direct Bilirubin 2.20 #H Indirect Bilirubin 1.0 Aspartate Amino 118 H Transf (AST/SGOT) Alanine 66 Aminotransferase (AL T/SGPT) Alkaline Phosphatase 701 H Total Protein 8.2 H Albumin 3.2 L Globulin 5.00 H Albumin/Globulin 0.64 Ratio Test 10/07/18 17:03 Bedside Glucose 128 Medications Medication Current Medications Ondansetron HCl (Zofran Inj) 4 mg Q6H PRN IV NAUSEA/VOMITING; Start 09/28/18 at 19:00 Ibuprofen (Motrin) 600 mg Q6H PRN PO .PAIN 1-3 Last administered on 10/06/18at 05:36; Admin Dose 600 MG; Start 09/28/18 at 19:00 Famotidine (Pepcid) 20 mg Q12 PO Last administered on 10/07/18at 09:55; Admin Dose 20 MG; Start 09/28/18 at 21:00 Miscellaneous Information 1 ea NOTE XX ; Start 09/28/18 at 19:00 Glucose (Glutose) 15 gm Q15M PRN PO DECREASED GLUCOSE Last administered on 10/02/18at 01:50; Admin Dose 15 GM; Start 09/28/18 at 19:00 Glucose (Glutose) 22.5 gm Q15M PRN PO DECREASED GLUCOSE; Start 09/28/18 at 19:00 Dextrose (D50w Syringe) 25 ml Q15M PRN IV DECREASED GLUCOSE Last administered on 10/02/18at 07:43; Admin Dose 25 ML; Start 09/28/18 at 19:00 Dextrose (D50w Syringe) 50 ml Q15M PRN IV DECREASED GLUCOSE; Start 09/28/18 at 19:00 Glucagon (Glucagen) 1 mg Q15M PRN IM DECREASED GLUCOSE; Start 09/28/18 at 19:00 Glucose (Glutose) 15 gm Q15M PRN BUCCAL DECREASED GLUCOSE; Start 09/28/18 at 19:00 Diphenhydramine HCl (Benadryl) 25 mg Q6H PRN PO ITCHING Last administered on 10/02/18at 09:10; Admin Dose 25 MG; Start 09/28/18 at 23:30 Diagnostic Test (Pha) (Accu-Chek) 1 ea 02 XX Last administered on 10/03/18at 02:15; Admin Dose 1 EA; Start 10/01/18 at 02:00 Insulin Glargine (Lantus) 20 units DAILY@2000 SC Last administered on 10/06/18at 20:22; Admin Dose 20 UNITS; Start 10/01/18 at 20:00 Hydroxyzine HCl (Atarax) 25 mg Q6H PRN PO ITCHING Last administered on 09/23 12/11at 10:01; Admin Dose 25 MG; Start 10/02/18 at 11:00 Insulin Aspart (Novolog Insulin Pen) NOVOLOG *MILD* ALGORITHM WITH MEALS BEDTIME SC Last administered on 10/06/18at 12:05; Admin Dose 1 UNIT; Start 10/03/18 at 21:00 Hydralazine HCl (Apresoline) 25 mg Q6H PRN PO ELEVATED BLOOD PRESSURE; Start 10/05/18 at 12:00 Levofloxacin (Levaquin) 500 mg DAILY@06 PO Last administered on 10/07/18 05:52; Admin Dose 500 MG; Start 10/06/18 at 06:00; Stop 10/08/18 at 00:00 Metoclopramide HCl (Reglan) 5 mg TID PRN PO NAUSEA AND/OR VOMITING; Start 10/07/18 at 16:00 REBECCA HUSTON MD Oct 07, 2018 18:00
[2018-10-07 20:00] VITALS: BP 145/67; PULSE 58; RESP 18
--- NOTE | 2018-10-07 20:17 | PN ---
DATE: 10/07/2018 SUBJECTIVE: No new events. She still continues to complain of itching all over her body. OBJECTIVE: GENERAL: Awake, alert, oriented, no acute distress. VITAL SIGNS: Temperature maximum 98.9, heart 62, respirations 18, blood pressure 109/65, saturation 99% on room air. HEART: Regular. LUNGS: Clear. ABDOMEN: Soft. LABORATORY DATA: Sodium, potassium, BUN and creatinine within normal limits today. Calcium is 9.1. Total bilirubin is 3.2, direct is 2.2, indirect is 1. ASSESSMENT: A 58-year-old female who has had problems with abdominal pain, right upper quadrant and in the gastric area for several months and recently in past 3 weeks has developed jaundice, was admit reid for further workup so far it has shown that the patient has probably some malignant process in th e hepatic portal area, could be a cholangiocarcinoma or could be carcinoma of the gallbladder with ex tension. ERCP was done a few days ago by Dr. Estrada. Old stent was not functioning and was removed and a new stent was placed. Following that, the bilirubin has dropped to some extent, of 5.22 to 3.2 . He got several biopsies from stricture in the common hepatic duct. They have sent it from patholo gy here to [facility] pathology department for final diagnosis. We are waiting for the final pathology repo rt and then to figure out between the surgical department and hematology/oncology department, if the patient is a candidate of any kind of surgery or to proceed with chemotherapy. PLAN: We will continue to follow. Dictated By: RENITA VIRK MD PS/NTS Conf#: [id number] DID#: [id number] CC: MARY ENGLE MD;*EndCC*
[2018-10-07] MEDS: INSULIN GLARGINE [LANTus] (100 UNITS/ML) SYG SC SCH (21:23)
[2018-10-08 02:00] VITALS: BP 146/69; PULSE 59; RESP 18
[2018-10-08] MEDS: ACCU-CHEK XX SCH (02:00)
[2018-10-08] MEDS: DIPHENHYDRAMINE 25 MG CAP PO PRN (02:28)
[2018-10-08 08:00] VITALS: BP 131/69; PULSE 58; RESP 18
[2018-10-08] MEDS: MEGESTROL (40 MG/ML) 10ML CUP PO SCH (08:10)
[2018-10-08] MEDS: hydrOXYzine HCL 25 MG TAB PO PRN ×3 (08:10→22:34)
[2018-10-08] MEDS: FAMOTIDINE 20 MG TAB PO SCH ×2 (08:10→20:51)
[2018-10-08] MEDS: INSULIN ASPART [NOVOLOG] 3 ML PEN SC SCH ×4 (08:14→20:54)
--- NOTE | 2018-10-08 10:57 | PN ---
Date/Time of Note Date/Time of Note DATE: 10/08/18 TIME: 10:57 Assessment/Plan VTE Prophylaxis Risk score (from Ns)>0 risk: 3 SCD applied (from Ns): No Lines/Catheters IV Catheter Type (from Nrs): Saline Lock Assessment/Plan Assessment/Plan -New onset of Jaundice. Dr. Estrada is following in gastroenterology consultation. Dr. Harris and Dr Main are following in general surgery consultation. Status post ERCP and migrated stent removal and placement of new stent by Dr. Estrada on 10/03/2018, follow-up on final pathology. -Abnormal LFT with significant weight loss, most probably related to cholangiocarcinoma. Dr. Rivera is following in oncology consultation. -Hx of ERCP and stent placement in April 2018 at another facility. -Diabetes mellitus, continue Lantus and NovoLog. -Hypertension, continue metoprolol. -Hyperlipidemia Further recommendations based on clinical course. Plan of care discussed with Dr. Rizzo. Result Diagram: 10/06/18 0607 10/08/18 0502 Results 24hrs Laboratory Tests Test 10/07/18 11:58 10/07/18 17:03 10/07/18 21:17 10/08/18 02:31 Bedside Glucose 118 128 188 147 Test 10/08/18 05:02 10/08/18 08:12 Sodium Level 139 Potassium Level 3.8 Chloride Level 107 Carbon Dioxide Level 23 Anion Gap 9 Blood Urea Nitrogen 13 Creatinine 0.47 Est Glomerular > 60 Filtrat Rate mL/min Glucose Level 198 # Calcium Level 8.9 Total Bilirubin 2.4 H Direct Bilirubin 1.60 #H Indirect Bilirubin 0.8 Aspartate Amino 110 H Transf (AST/SGOT) Alanine 64 Aminotransferase (AL T/SGPT) Alkaline Phosphatase 657 H Total Protein 7.8 Albumin 3.2 L Globulin 4.60 H Albumin/Globulin 0.69 Ratio Bedside Glucose 171 Exam/Review of Systems Exam Vitals Vital Signs Date Temp Pulse Resp B/P (MAP) Pulse Ox O2 O2 Flow FiO2 Time Delivery Rate 10/08/18 98.1 58 18 131/69 98 Room Air 08:00 (89) Intake and Output 10/07/18 10/07/18 10/08/18 1515:00 23:00 07:00 IntakeIntake Total 360 ml BalanceBalance 360 ml Results Results 24hrs Laboratory Tests Test 10/07/18 11:58 10/07/18 17:03 10/07/18 21:17 10/08/18 02:31 Bedside Glucose 118 128 188 147 Test 10/08/18 05:02 10/08/18 08:12 Sodium Level 139 Potassium Level 3.8 Chloride Level 107 Carbon Dioxide Level 23 Anion Gap 9 Blood Urea Nitrogen 13 Creatinine 0.47 Est Glomerular > 60 Filtrat Rate mL/min Glucose Level 198 # Calcium Level 8.9 Total Bilirubin 2.4 H Direct Bilirubin 1.60 #H Indirect Bilirubin 0.8 Aspartate Amino 110 H Transf (AST/SGOT) Alanine 64 Aminotransferase (AL T/SGPT) Alkaline Phosphatase 657 H Total Protein 7.8 Albumin 3.2 L Globulin 4.60 H Albumin/Globulin 0.69 Ratio Bedside Glucose 171 Medications Medication Current Medications Ondansetron HCl (Zofran Inj) 4 mg Q6H PRN IV NAUSEA/VOMITING; Start 09/28/18 at 19:00 Ibuprofen (Motrin) 600 mg Q6H PRN PO .PAIN 1-3 Last administered on 10/06/18at 05:36; Admin Dose 600 MG; Start 09/28/18 at 19:00 Famotidine (Pepcid) 20 mg Q12 PO Last administered on 10/08/18at 08:10; Admin Dose 20 MG; Start 09/28/18 at 21:00 Miscellaneous Information 1 ea NOTE XX ; Start 09/28/18 at 19:00 Glucose (Glutose) 15 gm Q15M PRN PO DECREASED GLUCOSE Last administered on 10/02/18at 01:50; Admin Dose 15 GM; Start 09/28/18 at 19:00 Glucose (Glutose) 22.5 gm Q15M PRN PO DECREASED GLUCOSE; Start 09/28/18 at 19:00 Dextrose (D50w Syringe) 25 ml Q15M PRN IV DECREASED GLUCOSE Last administered on 10/02/18at 07:43; Admin Dose 25 ML; Start 09/28/18 at 19:00 Dextrose (D50w Syringe) 50 ml Q15M PRN IV DECREASED GLUCOSE; Start 09/28/18 at 19:00 Glucagon (Glucagen) 1 mg Q15M PRN IM DECREASED GLUCOSE; Start 09/28/18 at 19:00 Glucose (Glutose) 15 gm Q15M PRN BUCCAL DECREASED GLUCOSE; Start 09/28/18 at 19:00 Diphenhydramine HCl (Benadryl) 25 mg Q6H PRN PO ITCHING Last administered on 10/08/18 02:28; Admin Dose 25 MG; Start 09/28/18 at 23:30 Diagnostic Test (Pha) (Accu-Chek) 1 ea 02 XX Last administered on 10/03/18 02:15; Admin Dose 1 EA; Start 10/01/18 at 02:00 Insulin Glargine (Lantus) 20 units DAILY@2000 SC Last administered on 10/07/18 21:23; Admin Dose 20 UNITS; Start 10/01/18 at 20:00 Hydroxyzine HCl (Atarax) 25 mg Q6H PRN PO ITCHING Last administered on 10/08/18 08:10; Admin Dose 25 MG; Start 10/02/18 at 11:00 Insulin Aspart (Novolog Insulin Pen) NOVOLOG *MILD* ALGORITHM WITH MEALS BEDTIME SC Last administered on 10/08/18 08:14; Admin Dose 1 UNIT; Start 10/03/18 at 21:00 Hydralazine HCl (Apresoline) 25 mg Q6H PRN PO ELEVATED BLOOD PRESSURE; Start 10/05/18 at 12:00 Metoclopramide HCl (Reglan) 5 mg TID PRN PO NAUSEA AND/OR VOMITING; Start 10/07/18 at 16:00 Megestrol Acetate (Megace Susp) 800 mg DAILY PO Last administered on 10/08/18 08:10; Admin Dose 800 MG; Start 10/08/18 at 09:00 MARYAN GILMAN Oct 08, 2018 10:57
--- NOTE | 2018-10-08 11:46 | PN ---
DATE: 10/08/2018 SUBJECTIVE: No new events. Still has itching problem. OBJECTIVE: GENERAL: Awake, alert, oriented. SKIN: The yellowish discoloration of the skin appears to be less. HEART: Regular. LUNGS: Clear. ABDOMEN: Soft. LABORATORY DATA: The blood shows that the total bilirubin today has dropped to total 2.4, direct bilirubin dropped to 1.6 and indirect bilirubin is 0.8, which is normal limits. AST of 110 and alkaline phosphatase 657, slightly decreasing. ASSESSMENT: The patient with possible cholangiocarcinoma or cancer of the gallbladder, had ERCP done a few days ago and previous stent showed migration into the duadenum partially, so it was removed and a new stent placed. Also, some debris and a stone was removed from the common bile duct. The biopsy report has been sent to [facility] for final diagnosis awaiting for that report. Since new ERCP and stent placement, the bilirubin gradually has been coming down. The last day before doing ERCP and placing a stent, total bilirubin was 5.2 and now today is 2.4, so definitely is decreasing. The patient is eating and having bowel movement. PLAN: Awaiting the result of pathology report. Dictated By: RENITA VIRK MD PS/NTS Conf#: [id number] DID#: [id number] CC: MARY ENGLE MD;*EndCC* MTDD
--- NOTE | 2018-10-08 13:17 | CONS ---
Assessment/Plan Assessment/Plan Hospital Course (Demo Recall) interval HX- Patient having lunch, tolerating well, family memeber at bedside, no acute distress, looks comfortable, no acute events overnight. Reports appetite improved on megace. Nausea improved but still has mild feeling of food stuck in throat. Prelim pathology shows suspicion for adenocarcinoma in common hepatic duct Total bilirubin 2.4 , ALT 64, AST 110,. Alk phos 657. 1. Abnormal LFT with significant weight loss, most probably related to cholangiocarcinoma. -Prelim pathology shows suspicion for adenocarcinoma -Positive HIDA scan 2. Diabetes mellitus. 3. Hypertension. 4. Nicotine usage. 5. Biliary stricture 6. S/P ERCP 10/04 -old stent removed (it had migrated), 10-Maori 12 cm stent successfully deployed. -purulent matter and stones -stricture and neovascularization identified in common hepatic duct Prelim pathology 10/03: Common hepatic duct, biopsy: -- Dysplastic epithelium showing infiltrative patterns, suspicious for adenocarcinoma PLAN: Heme onc consult-Dr Rivera following Optimize blood sugar Reglan 5 mg PO TID PRN anti emetics Pain management Observe for worsening of symptoms Monitor LFT Histopathology pending Continue abx In future, may need uncovered stent or Habib catheter for radiofrequency ablation of tumor if surgery is not contemplated Continue Megace Initial Consult Date Date/Time of Note Consultation Date/Type/Reason Admit Date/Time Sep 28, 2018 at 16:29 Initial Consult Date Requesting Provider: MARY ENGLE MD Date/Time of Note DATE: 10/08/18 TIME: 13:13 Exam/Review of Systems Exam Vitals Vital Signs Date Temp Pulse Resp B/P (MAP) Pulse Ox O2 O2 Flow FiO2 Time Delivery Rate 10/08/18 98.1 58 18 131/69 98 Room Air 08:00 (89) Intake and Output 10/07/18 10/07/18 10/08/18 1515:00 23:00 07:00 IntakeIntake Total 360 ml BalanceBalance 360 ml Constitutional: alert, oriented Psych: no complaints Head: normocephalic, atraumatic Eyes: EOMI Neck: supple, non-tender Respiratory: clear to auscultation Cardiovascular: regular rate and rhythm Gastrointestinal: soft Musculoskeletal: nl extremities to inspection Extremities: normal pulses Neurological: SUPERVISOR EDUCATION II-XII intact Results Result Diagram: 10/06/18 0607 10/08/18 0502 Results 24hrs Laboratory Tests Test 10/07/18 17:03 10/07/18 21:17 10/08/18 02:31 10/08/18 05:02 Bedside Glucose 128 188 147 Sodium Level 139 Potassium Level 3.8 Chloride Level 107 Carbon Dioxide Level 23 Anion Gap 9 Blood Urea Nitrogen 13 Creatinine 0.47 Est Glomerular > 60 Filtrat Rate mL/min Glucose Level 198 # Calcium Level 8.9 Total Bilirubin 2.4 H Direct Bilirubin 1.60 #H Indirect Bilirubin 0.8 Aspartate Amino 110 H Transf (AST/SGOT) Alanine 64 Aminotransferase (AL T/SGPT) Alkaline Phosphatase 657 H Total Protein 7.8 Albumin 3.2 L Globulin 4.60 H Albumin/Globulin 0.69 Ratio Test 10/08/18 08:12 10/08/18 11:43 Bedside Glucose 171 294 H Medications Medication Current Medications Ondansetron HCl (Zofran Inj) 4 mg Q6H PRN IV NAUSEA/VOMITING; Start 09/28/18 at 19:00 Ibuprofen (Motrin) 600 mg Q6H PRN PO .PAIN 1-3 Last administered on 10/06/18at 05:36; Admin Dose 600 MG; Start 09/28/18 at 19:00 Famotidine (Pepcid) 20 mg Q12 PO Last administered on 10/08/18at 08:10; Admin Dose 20 MG; Start 09/28/18 at 21:00 Miscellaneous Information 1 ea NOTE XX ; Start 09/28/18 at 19:00 Glucose (Glutose) 15 gm Q15M PRN PO DECREASED GLUCOSE Last administered on 10/02/18at 01:50; Admin Dose 15 GM; Start 09/28/18 at 19:00 Glucose (Glutose) 22.5 gm Q15M PRN PO DECREASED GLUCOSE; Start 09/28/18 at 19:00 Dextrose (D50w Syringe) 25 ml Q15M PRN IV DECREASED GLUCOSE Last administered on 10/02/18at 07:43; Admin Dose 25 ML; Start 09/28/18 at 19:00 Dextrose (D50w Syringe) 50 ml Q15M PRN IV DECREASED GLUCOSE; Start 09/28/18 at 19:00 Glucagon (Glucagen) 1 mg Q15M PRN IM DECREASED GLUCOSE; Start 09/28/18 at 19:00 Glucose (Glutose) 15 gm Q15M PRN BUCCAL DECREASED GLUCOSE; Start 09/28/18 at 19:00 Diphenhydramine HCl (Benadryl) 25 mg Q6H PRN PO ITCHING Last administered on 10/08/18 02:28; Admin Dose 25 MG; Start 09/28/18 at 23:30 Diagnostic Test (Pha) (Accu-Chek) 1 ea 02 XX Last administered on 10/03/18 02:15; Admin Dose 1 EA; Start 10/01/18 at 02:00 Insulin Glargine (Lantus) 20 units DAILY@2000 SC Last administered on 10/07/18 21:23; Admin Dose 20 UNITS; Start 10/01/18 at 20:00 Hydroxyzine HCl (Atarax) 25 mg Q6H PRN PO ITCHING Last administered on 10/08/18 08:10; Admin Dose 25 MG; Start 10/02/18 at 11:00 Insulin Aspart (Novolog Insulin Pen) NOVOLOG *MILD* ALGORITHM WITH MEALS BEDTIME SC Last administered on 10/08/18 11:51; Admin Dose 4 UNIT; Start 10/03/18 at 21:00 Hydralazine HCl (Apresoline) 25 mg Q6H PRN PO ELEVATED BLOOD PRESSURE; Start 10/05/18 at 12:00 Metoclopramide HCl (Reglan) 5 mg TID PRN PO NAUSEA AND/OR VOMITING; Start 10/07/18 at 16:00 Megestrol Acetate (Megace Susp) 800 mg DAILY PO Last administered on 10/08/18 08:10; Admin Dose 800 MG; Start 10/08/18 at 09:00 IBRAHIMA DALE NP Oct 08, 2018 13:17
[2018-10-08 14:10] VITALS: BP 113/61; PULSE 62; RESP 17
[2018-10-08] MEDS: IBUPROFEN 600 MG TAB PO PRN (15:31)
[2018-10-08 20:00] VITALS: BP 117/60; PULSE 59; RESP 18
[2018-10-08] MEDS: INSULIN GLARGINE [LANTus] (100 UNITS/ML) SYG SC SCH (20:55)
[2018-10-09 02:00] VITALS: BP 133/68; PULSE 60; RESP 19
[2018-10-09] MEDS: ACCU-CHEK XX SCH (02:00)
[2018-10-09] MEDS: INSULIN ASPART [NOVOLOG] 3 ML PEN SC SCH ×4 (07:58→20:47)
[2018-10-09 08:37] VITALS: BP 134/63; PULSE 57; RESP 18
[2018-10-09] MEDS: FAMOTIDINE 20 MG TAB PO SCH ×2 (09:08→20:44)
[2018-10-09] MEDS: MEGESTROL (40 MG/ML) 10ML CUP PO SCH (09:08)
[2018-10-09] MEDS: hydrOXYzine HCL 25 MG TAB PO PRN ×2 (09:08→16:09)
--- NOTE | 2018-10-09 11:46 | PN ---
DATE: 10/09/2018 SUBJECTIVE: No new events. No new complaint. OBJECTIVE: GENERAL: Awake, alert, oriented and is not in acute distress. The skin color is getting much better in regard to the jaundice appearance. VITAL SIGNS: Temperature 97.8, heart rate 57, respiration 18, blood pressure 134/63, saturation 99% on room air. LABORATORY DATA: WBC 6100, hemoglobin 10.6, hematocrit 32, platelet is decreasing 2388. Differential 67% neutrophils. Chemistry total bilirubin decreased to 1.7, direct is 0.9 ,indirect is 0.8 shows gradual normalization so far. AST also decreased and alkaline phosphatase is trending down. Pathology from the [facility] is not back yet. The patient's appetite is relatively good. Bowel movement is okay. PHYSICAL EXAMINATION: HEART: Regular. LUNGS: Clear. ABDOMEN: Soft. PLAN: Awaiting the result of the pathology report that was sent to [facility], then make a decision as to what kind of treatment should be started for this patient. We discussed the matter with other colleagues, including Dr. Estrada and oncologists. Dictated By: RENITA VIRK MD PS/NTS Conf#: [id number] DID#: [id number] CC: MARY ENGLE MD;*EndCC* MTDD
--- NOTE | 2018-10-09 12:37 | CONS ---
Assessment/Plan Assessment/Plan Hospital Course (Demo Recall) interval HX- Patient having lunch, tolerating well, family memeber at bedside, no acute distress, looks comfortable, no acute events overnight. Reports appetite improved on megace. Nausea improved but still has mild feeling of food stuck in throat. Prelim pathology shows suspicion for adenocarcinoma in common hepatic duct Total bilirubin 1.7 , ALT 70, AST 101,. Alk phos 599. 1. Abnormal LFT with significant weight loss, most probably related to cholangiocarcinoma. -Prelim pathology shows suspicion for adenocarcinoma -Positive HIDA scan 2. Diabetes mellitus. 3. Hypertension. 4. Nicotine usage. 5. Biliary stricture 6. S/P ERCP 10/04 -old stent removed (it had migrated), 10-[place] 12 cm stent successfully deployed. -purulent matter and stones -stricture and neovascularization identified in common hepatic duct Prelim pathology 10/03: Common hepatic duct, biopsy: -- Dysplastic epithelium showing infiltrative patterns, suspicious for adenocarcinoma PLAN: Heme onc consult-Dr Rivera following Optimize blood sugar Reglan 5 mg PO TID PRN anti emetics Pain management Observe for worsening of symptoms Monitor LFT Histopathology pending Continue abx In future, may need uncovered stent or Habib catheter for radiofrequency ablation of tumor if surgery is not contemplated Continue Megace Initial Consult Date Date/Time of Note Consultation Date/Type/Reason Admit Date/Time Sep 28, 2018 at 16:29 Initial Consult Date Requesting Provider: MARY ENGLE MD Date/Time of Note DATE: 10/09/18 TIME: 12:31 Exam/Review of Systems Exam Vitals Vital Signs Date Temp Pulse Resp B/P (MAP) Pulse Ox O2 O2 Flow FiO2 Time Delivery Rate 10/09/18 97.8 57 18 134/63 99 Room Air 08:37 (86) Intake and Output 10/08/18 10/08/18 10/09/18 1414:59 22:59 06:59 IntakeIntake Total 900 ml BalanceBalance 900 ml Constitutional: alert Psych: no complaints Head: normocephalic, atraumatic ENMT: nl external ears & nose Neck: supple Respiratory: clear to auscultation, normal air movement Cardiovascular: regular rate and rhythm Gastrointestinal: soft, non-tender Musculoskeletal: nl extremities to inspection Extremities: normal pulses Neurological: DEPOSITION REPORTER II-XII intact Results Result Diagram: 10/09/18 0454 10/09/18 0454 Results 24hrs Laboratory Tests Test 10/08/18 17:27 10/08/18 20:50 10/09/18 01:58 10/09/18 04:54 Bedside Glucose 279 H 280 H 282 H White Blood Count 6.1 Red Blood Count 3.54 L Hemoglobin 10.6 L Hematocrit 32.0 L Mean Corpuscular 90.4 Volume Mean Corpuscular 29.9 Hemoglobin Mean Corpuscular 33.1 Hemoglobin Concent Red Cell 18.0 H Distribution Width Platelet Count 388 Mean Platelet Volume 9.9 Immature 0.700 H Granulocytes % Neutrophils % 67.0 Lymphocytes % 23.8 Monocytes % 7.3 Eosinophils % 0.7 Basophils % 0.5 Nucleated Red Blood 0.0 Cells % Immature 0.040 H Granulocytes # Neutrophils # 4.1 Lymphocytes # 1.4 Monocytes # 0.4 Eosinophils # 0.0 Basophils # 0.0 Nucleated Red Blood 0.0 Cells # Sodium Level 140 Potassium Level 4.2 Chloride Level 107 Carbon Dioxide Level 25 Anion Gap 8 Blood Urea Nitrogen 14 Creatinine 0.46 Est Glomerular > 60 Filtrat Rate mL/min Glucose Level 333 H Calcium Level 8.7 Total Bilirubin 1.7 H Direct Bilirubin 0.90 #H Indirect Bilirubin 0.8 Aspartate Amino 101 H Transf (AST/SGOT) Alanine 70 H Aminotransferase (AL T/SGPT) Alkaline Phosphatase 599 H Total Protein 7.4 Albumin 3.0 L Globulin 4.60 H Albumin/Globulin 0.69 Ratio Test 10/09/18 07:57 10/09/18 11:49 Bedside Glucose 295 H 278 H Medications Medication Current Medications Ondansetron HCl (Zofran Inj) 4 mg Q6H PRN IV NAUSEA/VOMITING; Start 09/28/18 at 19:00 Ibuprofen (Motrin) 600 mg Q6H PRN PO .PAIN 1-3 Last administered on 10/08/18at 1 5:31; Admin Dose 600 MG; Start 09/28/18 at 19:00 Famotidine (Pepcid) 20 mg Q12 PO Last administered on 10/09/18at 09:08; Admin Dose 20 MG; Start 09/28/18 at 21:00 Miscellaneous Information 1 ea NOTE XX ; Start 09/28/18 at 19:00 Glucose (Glutose) 15 gm Q15M PRN PO DECREASED GLUCOSE Last administered on 10/02/18 01:50; Admin Dose 15 GM; Start 09/28/18 at 19:00 Glucose (Glutose) 22.5 gm Q15M PRN PO DECREASED GLUCOSE; Start 09/28/18 at 19:00 Dextrose (D50w Syringe) 25 ml Q15M PRN IV DECREASED GLUCOSE Last administered on 10/02/18at 07:43; Admin Dose 25 ML; Start 09/28/18 at 19:00 Dextrose (D50w Syringe) 50 ml Q15M PRN IV DECREASED GLUCOSE; Start 09/28/18 at 19:00 Glucagon (Glucagen) 1 mg Q15M PRN IM DECREASED GLUCOSE; Start 09/28/18 at 19:00 Glucose (Glutose) 15 gm Q15M PRN BUCCAL DECREASED GLUCOSE; Start 09/28/18 at 19:00 Diphenhydramine HCl (Benadryl) 25 mg Q6H PRN PO ITCHING Last administered on 10/08/18 02:28; Admin Dose 25 MG; Start 09/28/18 at 23:30 Diagnostic Test (Pha) (Accu-Chek) 1 ea 02 XX Last administered on 10/03/18at 02:15; Admin Dose 1 EA; Start 10/01/18 at 02:00 Insulin Glargine (Lantus) 20 units DAILY@2000 SC Last administered on 10/08/18at 20:55; Admin Dose 20 UNITS; Start 10/01/18 at 20:00 Hydroxyzine HCl (Atarax) 25 mg Q6H PRN PO ITCHING Last administered on 10/09/18 t 09:08; Admin Dose 25 MG; Start 10/02/18 at 11:00 Insulin Aspart (Novolog Insulin Pen) NOVOLOG *MILD* ALGORITHM WITH MEALS BEDTIME SC Last administered on 10/09/18 11:51; Admin Dose 4 UNIT; Start 10/03/18 at 21:00 Hydralazine HCl (Apresoline) 25 mg Q6H PRN PO ELEVATED BLOOD PRESSURE; Start 10/05/18 at 12:00 Metoclopramide HCl (Reglan) 5 mg TID PRN PO NAUSEA AND/OR VOMITING; Start 10/07/18 at 16:00 Megestrol Acetate (Megace Susp) 800 mg DAILY PO Last administered on 10/09/18at 09:08; Admin Dose 800 MG; Start 10/08/18 at 09:00 IBRAHIMA DALE NP Oct 09, 2018 12:37
[2018-10-09 14:55] VITALS: BP 120/58; PULSE 60; RESP 16
--- NOTE | 2018-10-09 15:12 | PN ---
Date/Time of Note Date/Time of Note DATE: 10/09/18 TIME: 15:08 Assessment/Plan VTE Prophylaxis Risk score (from Ns)>0 risk: 3 SCD applied (from Nsg): Yes Lines/Catheters IV Catheter Type (from Nrs): Saline Lock Urinary Cath still in place: No Assessment/Plan Assessment/Plan - Persistent Hyperglycemia 2/2 Diabetes - will get endocrinology consult; Dr Mckeon exchange notified. -New onset of Jaundice. Dr. Estrada is following in gastroenterology consultation. Dr. Harris and Dr Main are following in general surgery consultation. Status post ERCP and migrated stent removal and placement of new stent by Dr. Estrada on 10/03/2018, follow-up on final pathology. -Abnormal LFT with significant weight loss, most probably related to cholangiocarcinoma. Dr. Rivera is following in oncology consultation. -Hx of ERCP and stent placement in April 2018 at another facility. -Diabetes mellitus, continue Lantus and NovoLog. -Hypertension, continue metoprolol. -Hyperlipidemia Further recommendations based on clinical course. Plan of care discussed with Dr. Rizzo. Result Diagram: 10/09/18 0454 10/09/18 0454 Results 24hrs Laboratory Tests Test 10/08/18 17:27 10/08/18 20:50 10/09/18 01:58 10/09/18 04:54 Bedside Glucose 279 H 280 H 282 H White Blood Count 6.1 Red Blood Count 3.54 L Hemoglobin 10.6 L Hematocrit 32.0 L Mean Corpuscular 90.4 Volume Mean Corpuscular 29.9 Hemoglobin Mean Corpuscular 33.1 Hemoglobin Concent Red Cell 18.0 H Distribution Width Platelet Count 388 Mean Platelet Volume 9.9 Immature 0.700 H Granulocytes % Neutrophils % 67.0 Lymphocytes % 23.8 Monocytes % 7.3 Eosinophils % 0.7 Basophils % 0.5 Nucleated Red Blood 0.0 Cells % Immature 0.040 H Granulocytes # Neutrophils # 4.1 Lymphocytes # 1.4 Monocytes # 0.4 Eosinophils # 0.0 Basophils # 0.0 Nucleated Red Blood 0.0 Cells # Sodium Level 140 Potassium Level 4.2 Chloride Level 107 Carbon Dioxide Level 25 Anion Gap 8 Blood Urea Nitrogen 14 Creatinine 0.46 Est Glomerular > 60 Filtrat Rate mL/min Glucose Level 333 H Calcium Level 8.7 Total Bilirubin 1.7 H Direct Bilirubin 0.90 #H Indirect Bilirubin 0.8 Aspartate Amino 101 H Transf (AST/SGOT) Alanine 70 H Aminotransferase (AL T/SGPT) Alkaline Phosphatase 599 H Total Protein 7.4 Albumin 3.0 L Globulin 4.60 H Albumin/Globulin 0.69 Ratio Test 10/09/18 07:57 10/09/18 11:49 Bedside Glucose 295 H 278 H Exam/Review of Systems Exam Vitals Vital Signs Date Temp Pulse Resp B/P (MAP) Pulse Ox O2 O2 Flow FiO2 Time Delivery Rate 10/09/18 98.2 60 16 120/58 98 14:55 (78) 10/09/18 Room Air 08:37 Intake and Output 10/08/18 10/08/18 10/09/18 1515:00 23:00 07:00 IntakeIntake Total 900 ml BalanceBalance 900 ml Results Results 24hrs Laboratory Tests Test 10/08/18 17:27 10/08/18 20:50 10/09/18 01:58 10/09/18 04:54 Bedside Glucose 279 H 280 H 282 H White Blood Count 6.1 Red Blood Count 3.54 L Hemoglobin 10.6 L Hematocrit 32.0 L Mean Corpuscular 90.4 Volume Mean Corpuscular 29.9 Hemoglobin Mean Corpuscular 33.1 Hemoglobin Concent Red Cell 18.0 H Distribution Width Platelet Count 388 Mean Platelet Volume 9.9 Immature 0.700 H Granulocytes % Neutrophils % 67.0 Lymphocytes % 23.8 Monocytes % 7.3 Eosinophils % 0.7 Basophils % 0.5 Nucleated Red Blood 0.0 Cells % Immature 0.040 H Granulocytes # Neutrophils # 4.1 Lymphocytes # 1.4 Monocytes # 0.4 Eosinophils # 0.0 Basophils # 0.0 Nucleated Red Blood 0.0 Cells # Sodium Level 140 Potassium Level 4.2 Chloride Level 107 Carbon Dioxide Level 25 Anion Gap 8 Blood Urea Nitrogen 14 Creatinine 0.46 Est Glomerular > 60 Filtrat Rate mL/min Glucose Level 333 H Calcium Level 8.7 Total Bilirubin 1.7 H Direct Bilirubin 0.90 #H Indirect Bilirubin 0.8 Aspartate Amino 101 H Transf (AST/SGOT) Alanine 70 H Aminotransferase (AL T/SGPT) Alkaline Phosphatase 599 H Total Protein 7.4 Albumin 3.0 L Globulin 4.60 H Albumin/Globulin 0.69 Ratio Test 10/09/18 07:57 10/09/18 11:49 Bedside Glucose 295 H 278 H Medications Medication Current Medications Ondansetron HCl (Zofran Inj) 4 mg Q6H PRN IV NAUSEA/VOMITING; Start 09/28/18 at 19:00 Ibuprofen (Motrin) 600 mg Q6H PRN PO .PAIN 1-3 Last administered on 10/08/18at 15:31; Admin Dose 600 MG; Start 09/28/18 at 19:00 Famotidine (Pepcid) 20 mg Q12 PO Last administered on 10/09/18at 09:08; Admin Dose 20 MG; Start 09/28/18 at 21:00 Miscellaneous Information 1 ea NOTE XX ; Start 09/28/18 at 19:00 Glucose (Glutose) 15 gm Q15M PRN PO DECREASED GLUCOSE Last administered on 10/02at 01:50; Admin Dose 15 GM; Start 09/28/18 at 19:00 Glucose (Glutose) 22.5 gm Q15M PRN PO DECREASED GLUCOSE; Start 09/28/18 at 19:00 Dextrose (D50w Syringe) 25 ml Q15M PRN IV DECREASED GLUCOSE Last administered on 10/02/18at 07:43; Admin Dose 25 ML; Start 09/28/18 at 19:00 Dextrose (D50w Syringe) 50 ml Q15M PRN IV DECREASED GLUCOSE; Start 09/28/18 at 19:00 Glucagon (Glucagen) 1 mg Q15M PRN IM DECREASED GLUCOSE; Start 09/28/18 at 19:00 Glucose (Glutose) 15 gm Q15M PRN BUCCAL DECREASED GLUCOSE; Start 09/28/18 at 19:00 Diphenhydramine HCl (Benadryl) 25 mg Q6H PRN PO ITCHING Last administered on 10/08/18at 02:28; Admin Dose 25 MG; Start 09/28/18 at 23:30 Diagnostic Test (Pha) (Accu-Chek) 1 ea 02 XX Last administered on 10/03/18at 02:15; Admin Dose 1 EA; Start 10/01/18 at 02:00 Insulin Glargine (Lantus) 20 units DAILY@2000 SC Last administered on 10/08/18at 20:55; Admin Dose 20 UNITS; Start 10/01/18 at 20:00 Hydroxyzine HCl (Atarax) 25 mg Q6H PRN PO ITCHING Last administered on 10/09/18 09:08; Admin Dose 25 MG; Start 10/02/18 at 11:00 Insulin Aspart (Novolog Insulin Pen) NOVOLOG *MILD* ALGORITHM WITH MEALS BEDTIME SC Last administered on 10/09/18 11:51; Admin Dose 4 UNIT; Start 10/03 at 21:00 Hydralazine HCl (Apresoline) 25 mg Q6H PRN PO ELEVATED BLOOD PRESSURE; Start 10/05/18 at 12:00 Metoclopramide HCl (Reglan) 5 mg TID PRN PO NAUSEA AND/OR VOMITING; Start 10/07/18 at 16:00 Megestrol Acetate (Megace Susp) 800 mg DAILY PO Last administered on 10/09/18 09:08; Admin Dose 800 MG; Start 10/08/18 at 09:00 MARYAN GILMAN Oct 09, 2018 15:12
[2018-10-09] MEDS ORDERED: INSULIN ASPART [NOVOLOG] 3 ML PEN SC SCH (17:35)
[2018-10-09 20:37] VITALS: BP 136/63; PULSE 66; RESP 18
[2018-10-09] MEDS: INSULIN GLARGINE [LANTus] (100 UNITS/ML) SYG SC SCH (20:45)
[2018-10-09] MEDS ORDERED: INSULIN ASPART [NOVOLOG] 3 ML PEN SC ONE (21:00)
[2018-10-10] MEDS: hydrOXYzine HCL 25 MG TAB PO PRN ×4 (01:13→20:29)
[2018-10-10] MEDS: IBUPROFEN 600 MG TAB PO PRN ×2 (01:18→21:03)
[2018-10-10 02:00] VITALS: BP 124/65; PULSE 62; RESP 18
[2018-10-10] MEDS: ACCU-CHEK XX SCH (02:00)
--- NOTE | 2018-10-10 07:50 | CONS ---
Assessment/Plan Assessment/Plan Hospital Course (Demo Recall) 58 yo female Interval hx: C/O itching everywhere, moves around since APR 2018. Jaundice emilia earance improved. States abd pain improved. States feeling of food stuck in throat is improved. Blood sugars have been elevated in 400s. T bili wnl. alk trending down. 1. Abnormal LFT with significant weight loss, most probably related to cholangiocarcinoma. -Trending down -Prelim pathology shows suspicion for adenocarcinoma -Positive HIDA scan 2. Diabetes mellitus. 3. Hypertension. 4. Nicotine usage. 5. Biliary stricture 6. S/P ERCP 10/04 -old stent removed (it had migrated), 10-[place] 12 cm stent successfully deployed. -purulent matter and stones -stricture and neovascularization identified in common hepatic duct Prelim pathology 10/03: Common hepatic duct, biopsy: -- Dysplastic epithelium showing infiltrative patterns, suspicious for adenocarcinoma PLAN: Heme onc, hepatobiliary surgeon Optimize blood sugar Reglan 5 mg PO TID PRN anti emetics Pain management Observe for worsening of symptoms Monitor LFT and WBC closely Continue abx In future, may need uncovered stent or Habib catheter for radiofrequency ablation of tumor Pt examined and plan of care discussed with Dr. Estrada Consultation Date/Type/Reason Admit Date/Time Sep 28, 2018 at 16:29 Initial Consult Date Requesting Provider: MARY ENGLE MD Date/Time of Note DATE: 10/10/18 TIME: 07:49 Exam/Review of Systems Exam Vitals Vital Signs Date Temp Pulse Resp B/P (MAP) Pulse Ox O2 O2 Flow FiO2 Time Delivery Rate 10/10/18 98.4 62 18 124/65 100 02:00 (84) 10/09/18 Room Air 08:37 Intake and Output 10/09/18 10/09/18 10/10/18 1414:59 22:59 06:59 IntakeIntake Total 360 ml 1000 ml 1300 ml BalanceBalance 360 ml 1000 ml 1300 ml Constitutional: alert, oriented Psych: no complaints Head: normocephalic Eyes: PERRL, icteric Respiratory: clear to auscultation Cardiovascular: regular rate and rhythm Gastrointestinal: soft, tender Musculoskeletal: nl gait and stance Neurological: nl mental status Results Result Diagram: 10/09/18 0454 10/09/18 0454 Results 24hrs Laboratory Tests Test 10/09/18 07:57 10/09/18 11:49 10/09/18 16:52 10/09/18 20:31 Bedside Glucose 295 H 278 H 486 *H 489 *H Test 10/09/18 22:03 10/10/18 01:15 10/10/18 06:34 Bedside Glucose 355 H 322 H White Blood Count Pending Red Blood Count Pending Hemoglobin Pending Hematocrit Pending Mean Corpuscular Pending Volume Mean Corpuscular Pending Hemoglobin Mean Corpuscular Pending Hemoglobin Concent Red Cell Pending Distribution Width Platelet Count Pending Mean Platelet Volume Pending Medications Medication Current Medications Ondansetron HCl (Zofran Inj) 4 mg Q6H PRN IV NAUSEA/VOMITING; Start 09/28/18 at 19:00 Ibuprofen (Motrin) 600 mg Q6H PRN PO .PAIN 1-3 Last administered on 10/10/18at 01:18; Admin Dose 600 MG; Start 09/28/18 at 19:00 Famotidine (Pepcid) 20 mg Q12 PO Last administered on 10/09/18at 20:44; Admin Dose 20 MG; Start 09/28/18 at 21:00 Miscellaneous Information 1 ea NOTE XX ; Start 09/28/18 at 19:00 Glucose (Glutose) 15 gm Q15M PRN PO DECREASED GLUCOSE Last administered on 10/02/18at 01:50; Admin Dose 15 GM; Start 09/28/18 at 19:00 Glucose (Glutose) 22.5 gm Q15M PRN PO DECREASED GLUCOSE; Start 09/28/18 at 19:00 Dextrose (D50w Syringe) 25 ml Q15M PRN IV DECREASED GLUCOSE Last administered on 10/02/18at 07:43; Admin Dose 25 ML; Start 09/28/18 at 19:00 Dextrose (D50w Syringe) 50 ml Q15M PRN IV DECREASED GLUCOSE; Start 09/28/18 at 19:00 Glucagon (Glucagen) 1 mg Q15M PRN IM DECREASED GLUCOSE; Start 09/28/18 at 19:00 Glucose (Glutose) 15 gm Q15M PRN BUCCAL DECREASED GLUCOSE; Start 09/28/18 at 19:00 Diphenhydramine HCl (Benadryl) 25 mg Q6H PRN PO ITCHING Last administered on 10/08/18at 02:28; Admin Dose 25 MG; Start 09/28/18 at 23:30 Diagnostic Test (Pha) (Accu-Chek) 1 ea 02 XX Last administered on 10/03/18at 02:15; Admin Dose 1 EA; Start 10/01/18 at 02:00 Insulin Glargine (Lantus) 20 units DAILY@2000 SC Last administered on 10/09/18 20:45; Admin Dose 20 UNITS; Start 10/01/18 at 20:00 Hydroxyzine HCl (Atarax) 25 mg Q6H PRN PO ITCHING Last administered on 10/10/18at 01:13; Admin Dose 25 MG; Start 10/02/18 at 11:00 Insulin Aspart (Novolog Insulin Pen) NOVOLOG *MILD* ALGORITHM WITH MEALS BEDTIME SC Last administered on 10/09/18at 20:47; Admin Dose 4 UNIT; Start 10/03/18 at 21:00 Hydralazine HCl (Apresoline) 25 mg Q6H PRN PO ELEVATED BLOOD PRESSURE; Start 10/05/18 at 12:00 Metoclopramide HCl (Reglan) 5 mg TID PRN PO NAUSEA AND/OR VOMITING; Start 10/07/18 at 16:00 Megestrol Acetate (Megace Susp) 800 mg DAILY PO Last administered on 10/09/18 09:08; Admin Dose 800 MG; Start 10/08/18 at 09:00 Insulin Aspart (Novolog Insulin Pen) 6 unit WITH BREAKFAST LUNCH SC ; Start 10/10/18 at 08:00 Insulin Aspart (Novolog Insulin Pen) 8 unit WITH DINNER SC ; Start 10/10/18 at 18:05 MILTON BROOKE Oct 10, 2018 07:50
[2018-10-10] MEDS: MEGESTROL (40 MG/ML) 10ML CUP PO SCH (08:07)
[2018-10-10] MEDS: FAMOTIDINE 20 MG TAB PO SCH ×2 (08:07→20:29)
[2018-10-10] MEDS: INSULIN ASPART [NOVOLOG] 3 ML PEN SC SCH ×7 (08:08→20:34)
[2018-10-10 08:50] VITALS: BP 119/52; PULSE 59; RESP 18
--- NOTE | 2018-10-10 11:25 | CONS ---
Assessment/Plan Assessment/Plan Hospital Course (Demo Recall) #Cholangiocarcinoma -need to follow up final pathology. prelim suspicious for adenocarcinoma -MRCP done 07/27/18 reveals questionable filling defects in yasemin left hepatic duct and stent in place. -09/20/[address] reveals FDG accumulation into the gallbladder fossa and into the anterior aspect of the liver both at the left and right hepatic lobes. a small anterior cardiophrenic LN is also noted -pt will likely needs a laparoscopy vs laparotomy to definitively determine if the patient has resectable disease or not. Spoke with Dr. Harris and Dr. Estrada who are on board with this plan. THis is necessary so I as the oncologist can determine if patient can get definitive treatment vs palliative chemotherapy #Biliary Stricture -s/p stent placement #CM -continue current management #HTN -continue current management Thank you for the opportunity to participate in this patients care A total of 40 minutes of face to face time was spent speaking with the patient, of which greater than 50% was spent in counseling and coordination of care and the detailed question and answer session. Consultation Date/Type/Reason Admit Date/Time Sep 28, 2018 at 16:29 Initial Consult Date 10/06/18 Type of Consult oncology Reason for Consultation choalngiocarcinoma Requesting Provider: MARY ENGLE MD Date/Time of Note DATE: 10/10/18 TIME: 11:22 24 HR Interval Summary Free Text/Dictation pt feels well this morning. c/p pruritis Exam/Review of Systems Exam Vitals Vital Signs Date Temp Pulse Resp B/P (MAP) Pulse Ox O2 O2 Flow FiO2 Time Delivery Rate 10/10/18 98.1 59 18 119/52 99 08:50 (74) 10/09/18 Room Air 08:37 Intake and Output 10/09/18 10/09/18 10/10/18 1515:00 23:00 07:00 IntakeIntake Total 360 ml 1000 ml 1300 ml BalanceBalance 360 ml 1000 ml 1300 ml Constitutional: alert, oriented Psych: no complaints Head: normocephalic Eyes: nl conjunctiva ENMT: nl external ears & nose Neck: supple Respiratory: clear to auscultation Cardiovascular: regular rate and rhythm Gastrointestinal: soft Musculoskeletal: nl extremities to inspection Extremities: normal pulses Results Result Diagram: 10/10/1834 10/10/18633 Results 24hrs Laboratory Tests Test 10/09/18 11:49 10/09/18 16:52 10/09/18 20:31 10/09/18 22:03 Bedside Glucose 278 H 486 *H 489 *H 355 H Test 10/10/18 01:15 10/10/18 06:34 10/10/18 08:06 Bedside Glucose 322 H 208 White Blood Count 7.6 # Red Blood Count 3.45 L Hemoglobin 10.5 L Hematocrit 31.9 L Mean Corpuscular 92.5 Volume Mean Corpuscular 30.4 Hemoglobin Mean Corpuscular 32.9 Hemoglobin Concent Red Cell 18.0 H Distribution Width Platelet Count 369 Mean Platelet Volume 10.3 Immature 0.500 H Granulocytes % Neutrophils % 66.1 Lymphocytes % 24.2 Monocytes % 8.2 Eosinophils % 0.5 Basophils % 0.5 Nucleated Red Blood 0.0 Cells % Immature 0.040 H Granulocytes # Neutrophils # 5.0 Lymphocytes # 1.8 Monocytes # 0.6 Eosinophils # 0.0 Basophils # 0.0 Nucleated Red Blood 0.0 Cells # Sodium Level 141 Potassium Level 4.3 Chloride Level 108 Carbon Dioxide Level 24 Anion Gap 9 Blood Urea Nitrogen 13 Creatinine 0.50 Est Glomerular > 60 Filtrat Rate mL/min Glucose Level 218 # Calcium Level 9.1 Total Bilirubin 1.0 Direct Bilirubin 0.30 #H Indirect Bilirubin 0.7 Aspartate Amino 78 H Transf (AST/SGOT) Alanine 54 Aminotransferase (AL T/SGPT) Alkaline Phosphatase 538 H Total Protein 8.0 Albumin 3.3 Globulin 4.70 H Albumin/Globulin 0.70 Ratio Medications Medication Current Medications Ondansetron HCl (Zofran Inj) 4 mg Q6H PRN IV NAUSEA/VOMITING; Start 09/28/18 at 19:00 Ibuprofen (Motrin) 600 mg Q6H PRN PO .PAIN 1-3 Last administered on 10/10/18at 01:18; Admin Dose 600 MG; Start 09/28/18 at 19:00 Famotidine (Pepcid) 20 mg Q12 PO Last administered on 10/10/18at 08:07; Admin Dose 20 MG; Start 09/28/18 at 21:00 Miscellaneous Information 1 ea NOTE XX ; Start 09/28/18 at 19:00 Glucose (Glutose) 15 gm Q15M PRN PO DECREASED GLUCOSE Last administered on 10/02/18at 01:50; Admin Dose 15 GM; Start 09/28/18 at 19:00 Glucose (Glutose) 22.5 gm Q15M PRN PO DECREASED GLUCOSE; Start 09/28/18 at 19:00 Dextrose (D50w Syringe) 25 ml Q15M PRN IV DECREASED GLUCOSE Last administered on 10/02/18at 07:43; Admin Dose 25 ML; Start 09/28/18 at 19:00 Dextrose (D50w Syringe) 50 ml Q15M PRN IV DECREASED GLUCOSE; Start 09/28/18 at 19:00 Glucagon (Glucagen) 1 mg Q15M PRN IM DECREASED GLUCOSE; Start 09/28/18 at 19:00 Glucose (Glutose) 15 gm Q15M PRN BUCCAL DECREASED GLUCOSE; Start 09/28/18 at 19:00 Diphenhydramine HCl (Benadryl) 25 mg Q6H PRN PO ITCHING Last administered on 10/08/18at 02:28; Admin Dose 25 MG; Start 09/28/18 at 23:30 Diagnostic Test (Pha) (Accu-Chek) 1 ea 02 XX Last administered on 10/03/18at 02:15; Admin Dose 1 EA; Start 10/01/18 at 02:00 Insulin Glargine (Lantus) 20 units DAILY@2000 SC Last administered on 10/09/18at 20:45; Admin Dose 20 UNITS; Start 10/01/18 at 20:00 Hydroxyzine HCl (Atarax) 25 mg Q6H PRN PO ITCHING Last administered on 10/10/18 08:07; Admin Dose 25 MG; Start 10/02/18 at 11:00 Insulin Aspart (Novolog Insulin Pen) NOVOLOG *MILD* ALGORITHM WITH MEALS BEDTIME SC Last administered on 10/10/18 08:09; Admin Dose 2 UNIT; Start 10/03/18 at 21:00 Hydralazine HCl (Apresoline) 25 mg Q6H PRN PO ELEVATED BLOOD PRESSURE; Start 10/05/18 at 12:00 Metoclopramide HCl (Reglan) 5 mg TID PRN PO NAUSEA AND/OR VOMITING; Start 10/07/18 at 16:00 Megestrol Acetate (Megace Susp) 800 mg DAILY PO Last administered on 3/18/19at 08:07; Admin Dose 800 MG; Start 10/08/18 at 09:00 Insulin Aspart (Novolog Insulin Pen) 6 unit WITH BREAKFAST LUNCH SC Last administered on 10/10/18at 08:08; Admin Dose 6 UNIT; Start 10/10/18 at 08:00 Insulin Aspart (Novolog Insulin Pen) 8 unit WITH DINNER SC ; Start 10/10/18 at 18:05 FELY CARPENTER M.D. Oct 10, 2018 11:25
[2018-10-10 13:53] VITALS: BP 123/58; PULSE 54; RESP 19
--- NOTE | 2018-10-10 14:44 | PN ---
Date/Time of Note Date/Time of Note DATE: 10/10/18 TIME: 14:41 Assessment/Plan VTE [place] [facility] [place]: 3 [place] [facility] [place] Yes Pharmacological prophylaxis: NA/contraindicated Pharm contraindication: liver dx Lines/Catheters IV [facility]ter Type (from [facility] [place] Urinary Cath still in place: No Assessment/Plan Hospital Course Some improvement in jaundice, patient denies any nausea vomiting, pending final pathology, follow-up surgery oncology and GI recommendations. Assessment/Plan -New onset of Jaundice. Dr. Estrada is following in gastroenterology consultation. Dr. Harris and Dr Main are following in general surgery consultation. Status post ERCP and stent removal and new stent placement by Dr. Estrada on 10/03/2018, follow-up on pathology. -Hx of ERCP and stent placement in April 2018 at another facility. -Diabetes mellitus, continue Lantus and NovoLog. -Hypertension, continue metoprolol. -Hyperlipidemia Further recommendations based on clinical course. Plan of care discussed with Dr. Rizzo. Result Diagram: 10/10/18 0634 10/10/18 0634 Results 24hrs Laboratory Tests Test 10/09/18 16:52 10/09/18 20:31 10/09/18 22:03 10/10/18 01:15 Bedside Glucose 486 *H 489 *H 355 H 322 H Test 10/10/18 06:34 10/10/18 08:06 10/10/18 11:57 White Blood Count 7.6 # Red Blood Count 3.45 L Hemoglobin 10.5 L Hematocrit 31.9 L Mean Corpuscular 92.5 Volume Mean Corpuscular 30.4 Hemoglobin Mean Corpuscular 32.9 Hemoglobin Concent Red Cell 18.0 H Distribution Width Platelet Count 369 Mean Platelet Volume 10.3 Immature 0.500 H Granulocytes % Neutrophils % 66.1 Lymphocytes % 24.2 Monocytes % 8.2 Eosinophils % 0.5 Basophils % 0.5 Nucleated Red Blood 0.0 Cells % Immature 0.040 H Granulocytes # Neutrophils # 5.0 Lymphocytes # 1.8 Monocytes # 0.6 Eosinophils # 0.0 Basophils # 0.0 Nucleated Red Blood 0.0 Cells # Sodium Level 141 Potassium Level 4.3 Chloride Level 108 Carbon Dioxide Level 24 Anion Gap 9 Blood Urea Nitrogen 13 Creatinine 0.50 Est Glomerular > 60 Filtrat Rate mL/min Glucose Level 218 # Calcium Level 9.1 Total Bilirubin 1.0 Direct Bilirubin 0.30 #H Indirect Bilirubin 0.7 Aspartate Amino 78 H Transf (AST/SGOT) Alanine 54 Aminotransferase (AL T/SGPT) Alkaline Phosphatase 538 H Total Protein 8.0 Albumin 3.3 Globulin 4.70 H Albumin/Globulin 0.70 Ratio Bedside Glucose 208 287 H Exam/Review of Systems Exam Vitals Vital Signs Date Temp Pulse Resp B/P (MAP) Pulse Ox O2 O2 Flow FiO2 Time Delivery Rate 10/10/18 98.5 54 19 123/58 99 13:53 (79) 10/09/18 Room Air 08:37 Intake and Output 10/09/18 10/09/18 10/10/18 1515:00 23:00 07:00 IntakeIntake Total 360 ml 1000 ml 1300 ml BalanceBalance 360 ml 1000 ml 1300 ml Exam Constitutional: alert, oriented, other (jaundiced) Respiratory: clear to auscultation Cardiovascular: nl pulses Gastrointestinal: soft, tender Musculoskeletal: nl extremities to inspection Extremities: normal pulses Neurological: nl mental status Results Results 24hrs Laboratory Tests Test 10/09/18 16:52 10/09/18 20:31 10/09/18 22:03 10/10/18 01:15 Bedside Glucose 486 *H 489 *H 355 H 322 H Test 10/10/18 06:34 10/10/18 08:06 10/10/18 11:57 White Blood Count 7.6 # Red Blood Count 3.45 L Hemoglobin 10.5 L Hematocrit 31.9 L Mean Corpuscular 92.5 Volume Mean Corpuscular 30.4 Hemoglobin Mean Corpuscular 32.9 Hemoglobin Concent Red Cell 18.0 H Distribution Width Platelet Count 369 Mean Platelet Volume 10.3 Immature 0.500 H Granulocytes % Neutrophils % 66.1 Lymphocytes % 24.2 Monocytes % 8.2 Eosinophils % 0.5 Basophils % 0.5 Nucleated Red Blood 0.0 Cells % Immature 0.040 H Granulocytes # Neutrophils # 5.0 Lymphocytes # 1.8 Monocytes # 0.6 Eosinophils # 0.0 Basophils # 0.0 Nucleated Red Blood 0.0 Cells # Sodium Level 141 Potassium Level 4.3 Chloride Level 108 Carbon Dioxide Level 24 Anion Gap 9 Blood Urea Nitrogen 13 Creatinine 0.50 Est Glomerular > 60 Filtrat Rate mL/min Glucose Level 218 # Calcium Level 9.1 Total Bilirubin 1.0 Direct Bilirubin 0.30 #H Indirect Bilirubin 0.7 Aspartate Amino 78 H Transf (AST/SGOT) Alanine 54 Aminotransferase (AL T/SGPT) Alkaline Phosphatase 538 H Total Protein 8.0 Albumin 3.3 Globulin 4.70 H Albumin/Globulin 0.70 Ratio Bedside Glucose 208 287 H Medications Medication Current Medications Ondansetron HCl (Zofran Inj) 4 mg Q6H PRN IV NAUSEA/VOMITING; Start 09/28/18 at 19:00 Ibuprofen (Motrin) 600 mg Q6H PRN PO .PAIN 1-3 Last administered on 10/10/18 01:18; Admin Dose 600 MG; Start 09/28/18 at 19:00 Famotidine (Pepcid) 20 mg Q12 PO Last administered on 10/10/18 08:07; Admin Dose 20 MG; Start 09/28/18 at 21:00 Miscellaneous Information 1 ea NOTE XX ; Start 09/28/18 at 19:00 Glucose (Glutose) 15 gm Q15M PRN PO DECREASED GLUCOSE Last administered on 10/02/18at 01:50; Admin Dose 15 GM; Start 09/28/18 at 19:00 Glucose (Glutose) 22.5 gm Q15M PRN PO DECREASED GLUCOSE; Start 09/28/18 at 19:00 Dextrose (D50w Syringe) 25 ml Q15M PRN IV DECREASED GLUCOSE Last administered on 10/02/18 07:43; Admin Dose 25 ML; Start 09/28/18 at 19:00 Dextrose (D50w Syringe) 50 ml Q15M PRN IV DECREASED GLUCOSE; Start 09/28/18 at 19:00 Glucagon (Glucagen) 1 mg Q15M PRN IM DECREASED GLUCOSE; Start 09/28/18 at 19:00 Glucose (Glutose) 15 gm Q15M PRN BUCCAL DECREASED GLUCOSE; Start 09/28/18 at 19:00 Diphenhydramine HCl (Benadryl) 25 mg Q6H PRN PO ITCHING Last administered on 10/08/18 02:28; Admin Dose 25 MG; Start 09/28/18 at 23:30 Diagnostic Test (Pha) (Accu-Chek) 1 ea 02 XX Last administered on 10/03/18at 02:15; Admin Dose 1 EA; Start 10/01/18 at 02:00 Insulin Glargine (Lantus) 20 units DAILY@2000 SC Last administered on 10/09/18at 20:45; Admin Dose 20 UNITS; Start 10/01/18 at 20:00 Hydroxyzine HCl (Atarax) 25 mg Q6H PRN PO ITCHING Last administered on 14:12; Admin Dose 25 MG; Start 10/02/18 at 11:00 Insulin Aspart (Novolog Insulin Pen) NOVOLOG *MILD* ALGORITHM WITH MEALS BEDTIME SC Last administered on 10/10/18 12:03; Admin Dose 4 UNIT; Start 10/03/18 at 21:00 Hydralazine HCl (Apresoline) 25 mg Q6H PRN PO ELEVATED BLOOD PRESSURE; Start 10/05/18 at 12:00 Metoclopramide HCl (Reglan) 5 mg TID PRN PO NAUSEA AND/OR VOMITING; Start 10/07/18 at 16:00 Megestrol Acetate (Megace Susp) 800 mg DAILY PO Last administered on 10/10/18 08:07; Admin Dose 800 MG; Start 10/08/18 at 09:00 Insulin Aspart (Novolog Insulin Pen) 6 unit WITH BREAKFAST LUNCH SC Last administered on 10/10/18 12:01; Admin Dose 6 UNIT; Start 10/10/18 at 08:00 Insulin Aspart (Novolog Insulin Pen) 8 unit WITH DINNER SC ; Start 10/10/18 at 18:05 EDWIN OCHOA Oct 10, 2018 14:44
[2018-10-10 20:19] VITALS: BP 125/59; PULSE 70; RESP 20
[2018-10-10] MEDS: INSULIN GLARGINE [LANTus] (100 UNITS/ML) SYG SC SCH (20:34)
[2018-10-11] MEDS: INSULIN ASPART [NOVOLOG] 3 ML PEN SC SCH ×9 (01:10→21:11)
[2018-10-11] MEDS: ACCU-CHEK XX SCH ×3 (01:12→21:26)
[2018-10-11 02:42] VITALS: BP 121/64; PULSE 63; RESP 20
[2018-10-11 08:00] VITALS: BP 108/59; PULSE 76; RESP 20
--- NOTE | 2018-10-11 08:08 | CONS ---
Assessment/Plan Assessment/Plan Hospital Course (Demo Recall) 58 yo female Interval hx: LFTs wnl except alk which is trending down. WBC wnl. Hgb stable. Continues to c/o itching. CT of abd with contrast ordered today by Dr. Main. BM qd, brown and soft. No nausea. Abd pain improved. 1. Abnormal LFT with significant weight loss, most probably related to cholangiocarcinoma. -Trending down -Prelim pathology shows suspicion for adenocarcinoma -Positive HIDA scan 2. Diabetes mellitus. 3. Hypertension. 4. Nicotine usage. 5. Biliary stricture 6. S/P ERCP 10/04 -old stent removed (it had migrated), 10-[place] 12 cm stent successfully deploye d. -purulent matter and stones -stricture and neovascularization identified in common hepatic duct Prelim pathology 10/03: Common hepatic duct, biopsy: -- Dysplastic epithelium showing infiltrative patterns, suspicious for adenocarcinoma PLAN: Heme onc, hepatobiliary surgeon Optimize blood sugar Reglan 5 mg PO TID PRN anti emetics Pain management Observe for worsening of symptoms Monitor LFT and WBC closely Continue abx In future, may need uncovered stent or Habib catheter for radiofrequency ablation of tumor Pt examined and plan of care discussed with Dr. Estrada Consultation Date/Type/Reason Admit Date/Time Sep 28, 2018 at 16:29 Initial Consult Date Requesting Provider: MARY ENGLE MD Date/Time of Note DATE: 10/11/18 TIME: 08:07 Exam/Review of Systems Exam Vitals Vital Signs Date Temp Pulse Resp B/P (MAP) Pulse Ox O2 O2 Flow FiO2 Time Delivery Rate 10/11/18 98.3 63 20 121/64 100 02:42 (83) 10/09/18 Room Air 08:37 Intake and Output 10/10/18 10/10/18 10/11/18 1515:00 23:00 07:00 IntakeIntake Total 600 ml 240 ml 240 ml BalanceBalance 600 ml 240 ml 240 ml Constitutional: alert, oriented Psych: no complaints Head: normocephalic Eyes: PERRL, icteric Respiratory: clear to auscultation Cardiovascular: regular rate and rhythm Gastrointestinal: soft, tender Musculoskeletal: nl gait and stance Neurological: nl mental status Results Result Diagram: 10/10/18 0634 10/11/18 0442 Results 24hrs Laboratory Tests Test 10/10/18 11:57 10/10/18 17:33 10/10/18 20:32 10/11/18 01:07 Bedside Glucose 287 H 315 H 320 H 281 H Test 10/11/18 04:42 10/11/18 05:19 Sodium Level 141 Potassium Level 4.6 Chloride Level 107 Carbon Dioxide Level 23 Anion Gap 11 Blood Urea Nitrogen 15 Creatinine 0.44 Est Glomerular > 60 Filtrat Rate mL/min Glucose Level 270 H Calcium Level 9.2 Total Bilirubin 0.5 Direct Bilirubin 0.00 # Indirect Bilirubin 0.5 Aspartate Amino 76 H Transf (AST/SGOT) Alanine 53 Aminotransferase (AL T/SGPT) Alkaline Phosphatase 477 H Total Protein 7.9 Albumin 3.3 Globulin 4.60 H Albumin/Globulin 0.71 Ratio Bedside Glucose 264 H Medications Medication Current Medications Ondansetron HCl (Zofran Inj) 4 mg Q6H PRN IV NAUSEA/VOMITING; Start 09/28/18 at 19:00 Ibuprofen (Motrin) 600 mg Q6H PRN PO .PAIN 1-3 Last administered on 10/10/18at 21:03; Admin Dose 600 MG; Start 09/28/18 at 19:00 Famotidine (Pepcid) 20 mg Q12 PO Last administered on 10/10/18at 20:29; Admin Do se 20 MG; Start 09/28/18 at 21:00 Miscellaneous Information 1 ea NOTE XX ; Start 09/28/18 at 19:00 Glucose (Glutose) 15 gm Q15M PRN PO DECREASED GLUCOSE Last administered on 10/02/18at 01:50; Admin Dose 15 GM; Start 09/28/18 at 19:00 Glucose (Glutose) 22.5 gm Q15M PRN PO DECREASED GLUCOSE; Start 09/28/18 at 19:00 Dextrose (D50w Syringe) 25 ml Q15M PRN IV DECREASED GLUCOSE Last administered on 10/02/18at 07:43; Admin Dose 25 ML; Start 09/28/18 at 19:00 Dextrose (D50w Syringe) 50 ml Q15M PRN IV DECREASED GLUCOSE; Start 09/28/18 at 19:00 Glucagon (Glucagen) 1 mg Q15M PRN IM DECREASED GLUCOSE; Start 09/28/18 at 19:00 Glucose (Glutose) 15 gm Q15M PRN BUCCAL DECREASED GLUCOSE; Start 09/28/18 at 19:00 Diphenhydramine HCl (Benadryl) 25 mg Q6H PRN PO ITCHING Last administered on 10/08/18 02:28; Admin Dose 25 MG; Start 09/28/18 at 23:30 Diagnostic Test (Pha) (Accu-Chek) 1 ea 02 XX Last administered on 10/03/18 02:15; Admin Dose 1 EA; Start 10/01/18 at 02:00 Insulin Glargine (Lantus) 20 units DAILY@2000 SC Last administered on 10/10/18 20:34; Admin Dose 20 UNITS; Start 10/01/18 at 20:00 Hydroxyzine HCl (Atarax) 25 mg Q6H PRN PO ITCHING Last administered on 10/10/18 20:29; Admin Dose 25 MG; Start 10/02/18 at 11:00 Hydralazine HCl (Apresoline) 25 mg Q6H PRN PO ELEVATED BLOOD PRESSURE; Start 10/05/18 at 12:00 Metoclopramide HCl (Reglan) 5 mg TID PRN PO NAUSEA AND/OR VOMITING; Start 10/07/18 at 16:00 Megestrol Acetate (Megace Susp) 800 mg DAILY PO Last administered on 10/10/18 08:07; Admin Dose 800 MG; Start 10/08/18 at 09:00 Insulin Aspart (Novolog Insulin Pen) 6 unit WITH BREAKFAST LUNCH SC Last administered on 10/10/18 12:01; Admin Dose 6 UNIT; Start 10/10/18 at 08:00 Insulin Aspart (Novolog Insulin Pen) 8 unit WITH DINNER SC Last administered on 10/10/18 17:35; Admin Dose 8 UNIT; Start 10/10/18 at 18:05 Insulin Aspart (Novolog Insulin Pen) NOVOLOG *MILD* ALGORI... Q4 SC Last administered on 10/11/18 05:22; Admin Dose 4 UNIT; Start 10/11/18 at 01:00 MILTON BROOKE Oct 11, 2018 08:08
[2018-10-11] MEDS: FAMOTIDINE 20 MG TAB PO SCH ×2 (09:44→21:10)
[2018-10-11] MEDS: MEGESTROL (40 MG/ML) 10ML CUP PO SCH (09:44)
--- NOTE | 2018-10-11 11:05 | CONS ---
Assessment/Plan Assessment/Plan Hospital Course (Demo Recall) #Cholangiocarcinoma -need to follow up final pathology. prelim suspicious for adenocarcinoma -MRCP done 07/27/18 reveals questionable filling defects in the left hepatic duct and stent in place. -09/20/[address] reveals FDG accumulation into the gallbladder fossa and into the anterior aspect of the liver both at the left and right hepatic lobes. a small anterior cardiophrenic LN is also noted -pt will likely needs a laparoscopy vs laparotomy to definitively determine if the patient has resectable disease or not. Spoke with Dr. Harris and Dr. Estrada who are on board with this plan. THis is necessary so I as the oncologist can determine if patient can get definitive treatment vs palliative chemotherapy #Biliary Stricture -S/P ERCP 10/04 -old stent removed (it had migrated), 10-[place] 12 cm stent successfully deployed. #CM -continue current management #HTN -continue current management Thank you for the opportunity to participate in this patients care A total of 40 minutes of face to face time was spent speaking with the patient, of which greater than 50% was spent in counseling and coordination of care and the detailed question and answer session. Consultation Date/Type/Reason Admit Date/Time Sep 28, 2018 at 16:29 Initial Consult Date 10/06/18 Type of Consult oncology Reason for Consultation cholangiocarcinoma Requesting Provider: MARY ENGLE MD Date/Time of Note DATE: 10/11/18 TIME: 11:03 24 HR Interval Summary Free Text/Dictation pt to have a CT with contrast today. saw surgeon yesterday who is trying to determine if patient is a surgical candidate Exam/Review of Systems Exam Vitals Vital Signs Date Temp Pulse Resp B/P (MAP) Pulse Ox O2 O2 Flow FiO2 Time Delivery Rate 10/11/18 98.6 76 20 108/59 96 08:00 (75) 10/09/18 Room Air 08:37 Intake and Output 10/10/18 10/10/18 10/11/18 1515:00 23:00 07:00 IntakeIntake Total 600 ml 240 ml 240 ml BalanceBalance 600 ml 240 ml 240 ml Constitutional: alert, oriented Psych: no complaints Head: normocephalic Eyes: nl conjunctiva ENMT: nl external ears & nose Neck: supple Respiratory: clear to auscultation Cardiovascular: regular rate and rhythm Gastrointestinal: soft Musculoskeletal: nl extremities to inspection Results Result Diagram: 10/10/18 0634 10/11/18 0442 Results 24hrs Laboratory Tests Test 10/10/18 11:57 10/10/18 17:33 10/10/18 20:32 10/11/18 01:07 Bedside Glucose 287 H 315 H 320 H 281 H Test 10/11/18 04:42 10/11/18 05:19 10/11/18 09:41 Sodium Level 141 Potassium Level 4.6 Chloride Level 107 Carbon Dioxide Level 23 Anion Gap 11 Blood Urea Nitrogen 15 Creatinine 0.44 Est Glomerular > 60 Filtrat Rate mL/min Glucose Level 270 H Calcium Level 9.2 Total Bilirubin 0.5 Direct Bilirubin 0.00 # Indirect Bilirubin 0.5 Aspartate Amino 76 H Transf (AST/SGOT) Alanine 53 Aminotransferase (AL T/SGPT) Alkaline Phosphatase 477 H Total Protein 7.9 Albumin 3.3 Globulin 4.60 H Albumin/Globulin 0.71 Ratio Bedside Glucose 264 H 150 Medications Medication Current Medications Ondansetron HCl (Zofran Inj) 4 mg Q6H PRN IV NAUSEA/VOMITING; Start 09/28/18 at 19:00 Ibuprofen (Motrin) 600 mg Q6H PRN PO .PAIN 1-3 Last administered on 10/10/18at 21:03; Admin Dose 600 MG; Start 09/28/18 at 19:00 Famotidine (Pepcid) 20 mg Q12 PO Last administered on 10/11/18at 09:44; Admin Dose 20 MG; Start 09/28/18 at 21:00 Miscellaneous Information 1 ea NOTE XX ; Start 09/28/18 at 19:00 Glucose (Glutose) 15 gm Q15M PRN PO DECREASED GLUCOSE Last administered on 10/02/18at 01:50; Admin Dose 15 GM; Start 09/28/18 at 19:00 Glucose (Glutose) 22.5 gm Q15M PRN PO DECREASED GLUCOSE; Start 09/28/18 at 19:00 Dextrose (D50w Syringe) 25 ml Q15M PRN IV DECREASED GLUCOSE Last administered on 10/02/18at 07:43; Admin Dose 25 ML; Start 09/28/18 at 19:00 Dextrose (D50w Syringe) 50 ml Q15M PRN IV DECREASED GLUCOSE; Start 09/28/18 at 19:00 Glucagon (Glucagen) 1 mg Q15M PRN IM DECREASED GLUCOSE; Start 09/28/18 at 19:00 Glucose (Glutose) 15 gm Q15M PRN BUCCAL DECREASED GLUCOSE; Start 09/28/18 at 19:00 Diphenhydramine HCl (Benadryl) 25 mg Q6H PRN PO ITCHING Last administered on 10/08/18 02:28; Admin Dose 25 MG; Start 09/28/18 at 23:30 Diagnostic Test (Pha) (Accu-Chek) 1 ea 02 XX Last administered on 10/03/18 02:15; Admin Dose 1 EA; Start 10/01/18 at 02:00 Insulin Glargine (Lantus) 20 units DAILY@2000 SC Last administered on 10/10/18 20:34; Admin Dose 20 UNITS; Start 10/01/18 at 20:00 Hydroxyzine HCl (Atarax) 25 mg Q6H PRN PO ITCHING Last administered on 10/10/18 20:29; Admin Dose 25 MG; Start 10/02/18 at 11:00 Hydralazine HCl (Apresoline) 25 mg Q6H PRN PO ELEVATED BLOOD PRESSURE; Start 10/05/18 at 12:00 Metoclopramide HCl (Reglan) 5 mg TID PRN PO NAUSEA AND/OR VOMITING; Start 10/07/18 at 16:00 Megestrol Acetate (Megace Susp) 800 mg DAILY PO Last administered on 10/11/18 09:44; Admin Dose 800 MG; Start 10/08/18 at 09:00 Insulin Aspart (Novolog Insulin Pen) 6 unit WITH BREAKFAST LUNCH SC Last administered on 10/10/18 12:01; Admin Dose 6 UNIT; Start 10/10/18 at 08:00 Insulin Aspart (Novolog Insulin Pen) 8 unit WITH DINNER SC Last administered on 10/10/18 17:35; Admin Dose 8 UNIT; Start 10/10/18 at 18:05 Insulin Aspart (Novolog Insulin Pen) NOVOLOG *MILD* ALGORI... Q4 SC Last administered on 10/11/18 09:43; Admin Dose 1 UNIT; Start 10/11/18 at 01:00 FELY CARPENTER M.D. Oct 11, 2018 11:05
[2018-10-11 14:00] VITALS: BP 124/54; PULSE 64; RESP 18
--- NOTE | 2018-10-11 15:29 | PN ---
DATE: 10/11/2018 SUBJECTIVE: Only problem is that he continues itching and the itching problem has been going on for several months, actually she says since April last year. It appears that it does not have anything to do with the jaundice. Because right now bilirubin is normal, but still patient had the same frequency and intensity of the itching all over her body. Patient is on antihistamine anyway. OBJECTIVE: GENERAL: Awake, alert, oriented x3. VITAL SIGNS: Stable. He had requested CT scan of the abdomen with contrast protocol plus hepatic protocol. ASSESSMENT: The radiologist has informed that the premedication should be started as of the night before that is tonight and then they will do the CT scan tomorrow; so today it was not done. HEART: Regular. LUNGS: Clear. ABDOMEN: Soft. PATHOLOGY: Still the pathology report from [facility] is not back. PLAN: Since we don't exactly know the nature of this problem that the patient has , we don't have any specific plan at this time, Dr. Harris saw and examined the patient yesterday and actually he recommended to get CT scan hepatic protocol. After reviewing the MRCP with the radiology attending downstairs. So we are waiting for 2 things: 1. Report of the pathology from [facility]. 2. Status post CT scan of the abdomen Hepatic Protocole. Dictated By: RENITA VIRK MD PS/NTS Conf#: [id number] DID#: [id number] CC: MARY ENGLE MD;*EndCC* MTDD
--- NOTE | 2018-10-11 18:20 | CONS ---
Assessment/Plan Assessment/Plan Problems: (1) Diabetes mellitus type 2 in nonobese Status: Chronic Comment: Adjust her regimen to see if we can get her under better control. Please note she has no history of DPP 4 inhibitor drugs or GLP-1 drugs. In this individual situation I do not feel that they would add much to what were doing. 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 Status: Acute Comment: Is a new diagnosis and hematology oncology will be consulting (3) Hyperlipidemia associated with type 2 diabetes mellitus Status: Chronic Comment: Do not feel that the use of statin drugs as necessary in the setting (4) Essential hypertension Status: Chronic Comment: Noted per Consultation Date/Type/Reason Admit Date/Time Sep 28, 2018 at 16:29 Date of Consultation: Oct 11, 2018 Type of Consult Endocrinology Reason for Consultation Beatties mellitus type II out of control; new diagnosis of adenocarcinoma of the biliary tree; hypertension; hyperlipidemia; history of tobacco usage Requesting Provider: EDWIN OCHOA Date/Time of Note DATE: 10/11/18 TIME: 18:16 Hx of Present Illness Jeannie 58-year-old female admitted on September 28, 2018 with painless jaundice. She apparently been initially evaluated at [facility] and had a stent placement although the details are not immediately fully available. There were some atypical cells according to some of the notes in the chart. She came in with obstructive jaundice and her stents that have been placed there had migrated. 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 She had initiation of Megace to help with her appetite and her sugars have taken off. In addition she is scheduled to receive steroids tonight and steroids tomorrow. Her home regimen for insulin is actually quite a bit more and she is taking here and was also in combination with metformin which she is not receiving here. Constitutional: no complaints (Denies fevers chills or sweats) Respiratory: no complaints Cardiovascular: no complaints Gastrointestinal: other ([id number]) Genitourinary: no complaints Musculoskeletal: no complaints Endocrine: no complaints Past Medical History Medical History: cancer (New formal diagnosis adenocarcinoma of the biliary tree), diabetes, high cholesterol, hypertension Home Meds Reported Medications Atorvastatin Calcium* (Atorvastatin Calcium*) 20 Mg Tablet, 20 MG PO QHS, #30 TAB 09/28/18 Metoprolol Succinate* (Toprol XL*) 50 Mg Tab.er.24h, 50 MG PO DAILY, #30 TAB 09/28/18 Insulin Aspart* (Novolog Insulin Pen*) 100 Unit/Ml Soln, 0-12 SC .SLIDING SCALE AC, EA 09/28/18 Insulin Detemir (Levemir) 100 Unit/1 Ml Vial, 30 UNITS SC hs 09/28/18 Metformin* (Glucophage*) 1,000 Mg Tablet, 1000 MG PO BID, #60 TAB 09/28/18 Medications Current Medications Ondansetron HCl (Zofran Inj) 4 mg Q6H PRN IV NAUSEA/VOMITING; Start 09/28/18 at 19:00 Ibuprofen (Motrin) 600 mg Q6H PRN PO .PAIN 1-3 Last administered on 10/10/18at 21:03; Admin Dose 600 MG; Start 09/28/18 at 19:00 Famotidine (Pepcid) 20 mg Q12 PO Last administered on 10/11/18at 09:44; Admin Dose 20 MG; Start 09/28/18 at 21:00 Miscellaneous Information 1 ea NOTE XX ; Start 09/28/18 at 19:00 Glucose (Glutose) 15 gm Q15M PRN PO DECREASED GLUCOSE Last administered on 10/02/18at 01:50; Admin Dose 15 GM; Start 09/28/18 at 19:00 Glucose (Glutose) 22.5 gm Q15M PRN PO DECREASED GLUCOSE; Start 09/28/18 at 19:00 Dextrose (D50w Syringe) 25 ml Q15M PRN IV DECREASED GLUCOSE Last administered on 10/02/18at 07:43; Admin Dose 25 ML; Start 09/28/18 at 19:00 Dextrose (D50w Syringe) 50 ml Q15M PRN IV DECREASED GLUCOSE; Start 09/28/18 at 19:00 Glucagon (Glucagen) 1 mg Q15M PRN IM DECREASED GLUCOSE; Start 09/28/18 at 19:00 Glucose (Glutose) 15 gm Q15M PRN BUCCAL DECREASED GLUCOSE; Start 09/28/18 at 19:00 Diphenhydramine HCl (Benadryl) 25 mg Q6H PRN PO ITCHING Last administered on at 02:28; Admin Dose 25 MG; Start 09/28/18 at 23:30 Diagnostic Test (Pha) (Accu-Chek) 1 ea 02 XX Last administered on 10/03/18at 02:15; Admin Dose 1 EA; Start 10/01/18 at 02:00 Hydroxyzine HCl (Atarax) 25 mg Q6H PRN PO ITCHING Last administered on 10/10/18at 20:29; Admin Dose 25 MG; Start 10/02/18 at 11:00 Hydralazine HCl (Apresoline) 25 mg Q6H PRN PO ELEVATED BLOOD PRESSURE; Start 10/05/18 at 12:00 Metoclopramide HCl (Reglan) 5 mg TID PRN PO NAUSEA AND/OR VOMITING; Start 10/07/18 at 16:00 Megestrol Acetate (Megace Susp) 800 mg DAILY PO Last administered on 10/11/18at 09:44; Admin Dose 800 MG; Start 10/08/18 at 09:00 Insulin Aspart (Novolog Insulin Pen) NOVOLOG *MILD* ALGORI... AC MEALS AND BEDTIME SC Last administered on 10/11/18at 17:54; Admin Dose 4 UNIT; Start 10/11/18 at 12:30 Hydrocortisone (Solu-Cortef) 200 mg ONCE ONCE IV ; Start 10/11/18 at 21:00; Stop 10/11/18 at 21:01 Diphenhydramine HCl (Benadryl) 50 mg ONCE ONCE IV ; Start 10/11/18 at 21:00; Stop 10/11/18 at 21:01 Diphenhydramine HCl (Benadryl) 50 mg ONCE ONCE IV ; Start 10/12/18 at 05:00; Stop 10/12/18 at 05:01 Diphenhydramine HCl (Benadryl) 50 mg ONCE ONCE IV ; Start 10/12/18 at 09:00; Stop 10/12/18 at 09:01 Methylprednisolone (Medrol) 32 mg ONCE ONCE PO ; Start 10/12/18 at 05:00; Stop 10/12/18 at 05:01 Methylprednisolone (Medrol) 40 mg ONCE ONCE PO ; Start 10/12/18 at 09:00; Stop 10/12/18 at 09:01 Insulin Aspart (Novolog Insulin Pen) 8 unit WITH BREAKFAST LUNCH SC ; Start 10/12/18 at 08:00; Status UNV Insulin Aspart (Novolog Insulin Pen) 10 unit WITH DINNER SC ; Start 10/12/18 at 18:05; Status UNV Insulin Glargine (Lantus) 24 units DAILY@2000 SC ; Start 10/11/18 at 20:00; Status UNV Allergies: Coded Allergies: morphine (Verified Allergy, Unknown, 09/28/18) Uncoded Allergies: CONTRAST (Allergy, Unknown, 09/28/18) Past Surgical History Past Surgical Hx: other (Status post right eye surgery, s/p ERCP and stent placement in april 2018) Family History Significant Family History: diabetes, hypertension Social History Alcohol Use: none Smoking Status: Current every day smoker Drug Use: none Exam/Review of Systems Exam Vitals Vital Signs Date Temp Pulse Resp B/P (MAP) Pulse Ox O2 O2 Flow FiO2 Time Delivery Rate 10/11/18 98.6 64 18 124/54 96 14:00 (77) 10/09/18 Room Air 08:37 Intake and Output 10/10/18 10/10/18 10/11/18 1515:00 23:00 07:00 IntakeIntake Total 600 ml 240 ml 240 ml BalanceBalance 600 ml 240 ml 240 ml Constitutional: alert, oriented Neck: supple, non-tender Cardiovascular: regular rate and rhythm, nl pulses Gastrointestinal: soft, nl liver, spleen, non-tender Results Result Diagram: 10/10/18 0634 10/11/18 0442 Results 24hrs Laboratory Tests Test 10/10/18 20:32 10/11/18 01:07 10/11/18 04:42 10/11/18 05:19 Bedside Glucose 320 H 281 H 264 H Sodium Level 141 Potassium Level 4.6 Chloride Level 107 Carbon Dioxide Level 23 Anion Gap 11 Blood Urea Nitrogen 15 Creatinine 0.44 Est Glomerular > 60 Filtrat Rate mL/min Glucose Level 270 H Calcium Level 9.2 Total Bilirubin 0.5 Direct Bilirubin 0.00 # Indirect Bilirubin 0.5 Aspartate Amino 76 H Transf (AST/SGOT) Alanine 53 Aminotransferase (AL T/SGPT) Alkaline Phosphatase 477 H Total Protein 7.9 Albumin 3.3 Globulin 4.60 H Albumin/Globulin 0.71 Ratio Test 10/11/18 09:41 10/11/18 12:35 10/11/18 17:27 Bedside Glucose 150 255 H 299 H Medications Medication Current Medications Ondansetron HCl (Zofran Inj) 4 mg Q6H PRN IV NAUSEA/VOMITING; Start 09/28/18 at 19:00 Ibuprofen (Motrin) 600 mg Q6H PRN PO .PAIN 1-3 Last administered on 10/10/18at 2 1:03; Admin Dose 600 MG; Start 09/28/18 at 19:00 Famotidine (Pepcid) 20 mg Q12 PO Last administered on 10/11/18at 09:44; Admin Dose 20 MG; Start 09/28/18 at 21:00 Miscellaneous Information 1 ea NOTE XX ; Start 09/28/18 at 19:00 Glucose (Glutose) 15 gm Q15M PRN PO DECREASED GLUCOSE Last administered on 10/02/18at 01:50; Admin Dose 15 GM; Start 09/28/18 at 19:00 Glucose (Glutose) 22.5 gm Q15M PRN PO DECREASED GLUCOSE; Start 09/28/18 at 19:00 Dextrose (D50w Syringe) 25 ml Q15M PRN IV DECREASED GLUCOSE Last administered on 10/02/18at 07:43; Admin Dose 25 ML; Start 09/28/18 at 19:00 Dextrose (D50w Syringe) 50 ml Q15M PRN IV DECREASED GLUCOSE; Start 09/28/18 at 19:00 Glucagon (Glucagen) 1 mg Q15M PRN IM DECREASED GLUCOSE; Start 09/28/18 at 19:00 Glucose (Glutose) 15 gm Q15M PRN BUCCAL DECREASED GLUCOSE; Start 09/28/18 at 19:00 Diphenhydramine HCl (Benadryl) 25 mg Q6H PRN PO ITCHING Last administered on 10/08/18at 02:28; Admin Dose 25 MG; Start 09/28/18 at 23:30 Diagnostic Test (Pha) (Accu-Chek) 1 ea 02 XX Last administered on 10/03/18at 02:15; Admin Dose 1 EA; Start 10/01/18 at 02:00 Hydroxyzine HCl (Atarax) 25 mg Q6H PRN PO ITCHING Last administered on 10/10/18at 20:29; Admin Dose 25 MG; Start 10/02/18 at 11:00 Hydralazine HCl (Apresoline) 25 mg Q6H PRN PO ELEVATED BLOOD PRESSURE; Start 10/05/18 at 12:00 Metoclopramide HCl (Reglan) 5 mg TID PRN PO NAUSEA AND/OR VOMITING; Start 10/07/18 at 16:00 Megestrol Acetate (Megace Susp) 800 mg DAILY PO Last administered on 10/11/18at 09:44; Admin Dose 800 MG; Start 10/08/18 at 09:00 Insulin Aspart (Novolog Insulin Pen) NOVOLOG *MILD* ALGORI... AC MEALS AND BEDTIME SC Last administered on 10/11/18at 17:54; Admin Dose 4 UNIT; Start 10/11/18 at 12:30 Hydrocortisone (Solu-Cortef) 200 mg ONCE ONCE IV ; Start 10/11/18 at 21:00; Stop 10/11/18 at 21:01 Diphenhydramine HCl (Benadryl) 50 mg ONCE ONCE IV ; Start 10/11/18 at 21:00; Stop 10/11/18 at 21:01 Diphenhydramine HCl (Benadryl) 50 mg ONCE ONCE IV ; Start 10/12/18 at 05:00; Stop 10/12/18 at 05:01 Diphenhydramine HCl (Benadryl) 50 mg ONCE ONCE IV ; Start 10/12/18 at 09:00; Stop 10/12/18 at 09:01 Methylprednisolone (Medrol) 32 mg ONCE ONCE PO ; Start 10/12/18 at 05:00; Stop 10/12/18 at 05:01 Methylprednisolone (Medrol) 40 mg ONCE ONCE PO ; Start 10/12/18 at 09:00; Stop 10/12/18 at 09:01 Insulin Aspart (Novolog Insulin Pen) 8 unit WITH BREAKFAST LUNCH SC ; Start 10/12/18 at 08:00; Status UNV Insulin Aspart (Novolog Insulin Pen) 10 unit WITH DINNER SC ; Start 10/12/18 at 18:05; Status UNV Insulin Glargine (Lantus) 24 units DAILY@2000 SC ; Start 10/11/18 at 20:00; Status TAO BEDOYA MD Oct 11, 2018 18:20
[2018-10-11 20:00] VITALS: BP 137/67; RESP 20
[2018-10-11] MEDS ORDERED: INSULIN GLARGINE [LANTus] (100 UNITS/ML) SYG SC SCH (20:00)
[2018-10-11] MEDS ORDERED: INSULIN GLARGINE [LANTus] (100 UNITS/ML) SYG SC ONE (20:00)
[2018-10-11] MEDS ORDERED: DIPHENHYDRAMINE 50 MG INJ IV ONE (21:00)
[2018-10-11] MEDS ORDERED: HYDROCORTISONE 250 MG INJ IV ONE (21:00)
--- NOTE | 2018-10-11 21:11 | PN ---
Date/Time of Note Date/Time of Note DATE: 10/11/18 TIME: 21:05 Assessment/Plan VTE Prophylaxis Risk score (from [facility])>0 risk: 3 SCD applied (from [facility]): Yes Pharmacological prophylaxis: NA/contraindicated Pharm contraindication: liver dx Lines/Catheters IV [facility] Saline Lock Urinary Cath still in place: No Assessment/Plan Hospital Course Patient remains hemodynamically stable, jaundice gradually resolving, final pathology is consistent with invasive well-differentiated adenocarcinoma, pending CT of the abdomen per hepatic protocol. Assessment/Plan -New onset of Jaundice. Dr. Estrada is following in gastroenterology co nsultation. Dr. Harris and Dr Main are following in general surgery consultation. Status post ERCP and stent removal and new stent placement by Dr. Estrada on 10/03/2018, follow-up on pathology. -Hx of ERCP and stent placement in April 2018 at another facility. -Diabetes mellitus, continue Lantus and NovoLog. -Hypertension, continue metoprolol. -Hyperlipidemia Further recommendations based on clinical course. Plan of care discussed with Dr. Rizzo. Result Diagram: 10/10/18 0634 10/11/18 0442 Results 24hrs Laboratory Tests Test 10/11/18 01:07 10/11/18 04:42 10/11/18 05:19 10/11/18 09:41 Bedside Glucose 281 H 264 H 150 Sodium Level 141 Potassium Level 4.6 Chloride Level 107 Carbon Dioxide Level 23 Anion Gap 11 Blood Urea Nitrogen 15 Creatinine 0.44 Est Glomerular > 60 Filtrat Rate mL/min Glucose Level 270 H Calcium Level 9.2 Total Bilirubin 0.5 Direct Bilirubin 0.00 # Indirect Bilirubin 0.5 Aspartate Amino 76 H Transf (AST/SGOT) Alanine 53 Aminotransferase (AL T/SGPT) Alkaline Phosphatase 477 H Total Protein 7.9 Albumin 3.3 Globulin 4.60 H Albumin/Globulin 0.71 Ratio Test 10/11/18 12:35 10/11/18 17:27 10/11/18 21:02 Bedside Glucose 255 H 299 H 293 H Exam/Review of Systems Exam Vitals Vital Signs Date Temp Pulse Resp B/P (MAP) Pulse Ox O2 O2 Flow FiO2 Time Delivery Rate 10/11/18 98.6 64 18 124/54 96 14:00 (77) 3/17/19 Room Air 08:37 Intake and Output 10/10/18 10/10/18 10/11/18 1515:00 23:00 07:00 IntakeIntake Total 600 ml 240 ml 240 ml BalanceBalance 600 ml 240 ml 240 ml Exam Constitutional: alert, oriented, other (jaundiced) Respiratory: clear to auscultation Cardiovascular: nl pulses Gastrointestinal: soft, tender Musculoskeletal: nl extremities to inspection Extremities: normal pulses Neurological: nl mental status Results Results 24hrs Laboratory Tests Test 10/11/18 01:07 10/11/18 04:42 10/11/18 05:19 10/11/18 09:41 Bedside Glucose 281 H 264 H 150 Sodium Level 141 Potassium Level 4.6 Chloride Level 107 Carbon Dioxide Level 23 Anion Gap 11 Blood Urea Nitrogen 15 Creatinine 0.44 Est Glomerular > 60 Filtrat Rate mL/min Glucose Level 270 H Calcium Level 9.2 Total Bilirubin 0.5 Direct Bilirubin 0.00 # Indirect Bilirubin 0.5 Aspartate Amino 76 H Transf (AST/SGOT) Alanine 53 Aminotransferase (AL T/SGPT) Alkaline Phosphatase 477 H Total Protein 7.9 Albumin 3.3 Globulin 4.60 H Albumin/Globulin 0.71 Ratio Test 10/11/18 12:35 10/11/18 17:27 10/11/18 21:02 Bedside Glucose 255 H 299 H 293 H Medications Medication Current Medications Ondansetron HCl (Zofran Inj) 4 mg Q6H PRN IV NAUSEA/VOMITING; Start 09/28/18 at 19:00 Ibuprofen (Motrin) 600 mg Q6H PRN PO .PAIN 1-3 Last administered on 10/10/18at 21:03; Admin Dose 600 MG; Start 09/28/18 at 19:00 Famotidine (Pepcid) 20 mg Q12 PO Last administered on 10/11/18at 09:44; Admin Dose 20 MG; Start 09/28/18 at 21:00 Miscellaneous Information 1 ea NOTE XX ; Start 09/28/18 at 19:00 Glucose (Glutose) 15 gm Q15M PRN PO DECREASED GLUCOSE Last administered on 10/02/18at 01:50; Admin Dose 15 GM; Start 09/28/18 at 19:00 Glucose (Glutose) 22.5 gm Q15M PRN PO DECREASED GLUCOSE; Start 09/28/18 at 19:00 Dextrose (D50w Syringe) 25 ml Q15M PRN IV DECREASED GLUCOSE Last administered on 10/02/18at 07:43; Admin Dose 25 ML; Start 09/28/18 at 19:00 Dextrose (D50w Syringe) 50 ml Q15M PRN IV DECREASED GLUCOSE; Start 09/28/18 at 19:00 Glucagon (Glucagen) 1 mg Q15M PRN IM DECREASED GLUCOSE; Start 09/28/18 at 19:00 Glucose (Glutose) 15 gm Q15M PRN BUCCAL DECREASED GLUCOSE; Start 09/28/18 at 19:00 Diphenhydramine HCl (Benadryl) 25 mg Q6H PRN PO ITCHING Last administered on 10/08/18at 02:28; Admin Dose 25 MG; Start 09/28/18 at 23:30 Diagnostic Test (Pha) (Accu-Chek) 1 ea 02 XX Last administered on 10/03/18at 02:15; Admin Dose 1 EA; Start 10/01/18 at 02:00 Hydroxyzine HCl (Atarax) 25 mg Q6H PRN PO ITCHING Last administered on 10/10/18at 20:29; Admin Dose 25 MG; Start 10/02/18 at 11:00 Hydralazine HCl (Apresoline) 25 mg Q6H PRN PO ELEVATED BLOOD PRESSURE; Start 10/05/18 at 12:00 Metoclopramide HCl (Reglan) 5 mg TID PRN PO NAUSEA AND/OR VOMITING; Start 10/07/18 at 16:00 Megestrol Acetate (Megace Susp) 800 mg DAILY PO Last administered on 10/11/18at 09:44; Admin Dose 800 MG; Start 10/08/18 at 09:00 Insulin Aspart (Novolog Insulin Pen) NOVOLOG *MILD* ALGORI... AC MEALS AND BE DTIME SC Last administered on 10/11/18at 17:54; Admin Dose 4 UNIT; Start 10/11/18 at 12:30 Diphenhydramine HCl (Benadryl) 50 mg ONCE ONCE IV ; Start 10/12/18 at 05:00; Stop 10/12/18 at 05:01 Diphenhydramine HCl (Benadryl) 50 mg ONCE ONCE IV ; Start 10/12/18 at 09:00; Stop 10/12/18 at 09:01 Methylprednisolone (Medrol) 32 mg ONCE ONCE PO ; Start 10/12/18 at 05:00; Stop 10/12/18 at 05:01 Methylprednisolone (Medrol) 40 mg ONCE ONCE PO ; Start 10/12/18 at 09:00; Stop 10/12/18 at 09:01 Insulin Aspart (Novolog Insulin Pen) 8 unit WITH BREAKFAST LUNCH SC ; Start 10/12/18 at 08:00 Insulin Aspart (Novolog Insulin Pen) 10 unit WITH DINNER SC ; Start 10/12/18 at 18:05 Insulin Glargine (Lantus) 24 units DAILY@2000 SC ; Start 10/11/18 at 20:00 Diagnostic Test (Pha) (Accu-Chek) 1 ea AC MEALS AND BEDTIME XX ; Start 10/11/18 at 21:00 Diagnostic Test (Pha) (Accu-Chek) 1 ea 2 HOURS AFTER MEALS XX ; Start 10/11/18 at 20:05 Metformin HCl (Glucophage) 500 mg WITH DINNER NGT ; Start 10/12/18 at 18:05 EDWIN OCHOA Oct 11, 2018 21:11
[2018-10-11] MEDS: IBUPROFEN 600 MG TAB PO PRN (21:30)
[2018-10-11] MEDS: hydrOXYzine HCL 25 MG TAB PO PRN (22:07)
[2018-10-12] MEDS: INSULIN ASPART [NOVOLOG] 3 ML PEN SC SCH ×8 (01:16→20:34)
[2018-10-12] MEDS: ACCU-CHEK XX SCH ×8 (02:00→21:00)
[2018-10-12 03:11] VITALS: BP 141/66; PULSE 57; RESP 20
[2018-10-12] MEDS ORDERED: DIPHENHYDRAMINE 50 MG INJ IV ONE ×2 (05:00→09:00)
[2018-10-12] MEDS ORDERED: METHYLPREDNISOLONE 4 MG TAB PO ONE ×2 (05:00→09:00)
[2018-10-12 08:00] VITALS: BP 148/67; PULSE 55; RESP 19
[2018-10-12] MEDS: FAMOTIDINE 20 MG TAB PO SCH ×2 (08:11→20:36)
[2018-10-12] MEDS: MEGESTROL (40 MG/ML) 10ML CUP PO SCH (08:11)
[2018-10-12] MEDS ORDERED: IOHEXOL 350MG/ML 50 ML BTL ONE (09:37)
[2018-10-12] MEDS ORDERED: SOD CHLORIDE 0.9% 100 ML ONE (09:37)
[2018-10-12] MEDS ORDERED: IOHEXOL 100 ML ONE (09:37)
--- NOTE | 2018-10-12 10:45 | PN ---
Date/Time of Note Date/Time of Note DATE: 10/12/18 TIME: 10:43 Assessment/Plan VTE Prophylaxis Risk score (from [facility])>0 risk: 3 SCD applied (from [facility]): Yes Pharmacological prophylaxis: NA/contraindicated Pharm contraindication: liver dx Lines/Catheters IV Catheter Type (from [facility]): Saline Lock Urinary Cath still in place: No Assessment/Plan Hospital Course Patient just came back from CT, elevated blood sugar due to steroids that pt received as premed prior to contrast for CT hepatic series. Pt is sitting in bed eating breakfast, no distress, looks less jaundiced. Assessment/Plan -New onset of Jaundice. Dr. Estrada is following in gastroenterology consultation. Dr. Harris and Dr Main are following in general surgery consultation. Status post ERCP and stent removal and new stent placement by Dr. Estrada on 10/03/2018, final pathology is consistent with invasive well- differentiated adenocarcinoma. -Hx of ERCP and stent placement in April 2018 at another facility. -Her glycemia in diabetes mellitus, continue Lantus and NovoLog. Dr. Luke is following in endocrinology consultation. -Hypertension, continue metoprolol. -Hyperlipidemia Further recommendations based on clinical course. Plan of care discussed with Dr. Rizzo. Result Diagram: 10/10/18 0634 10/11/18 0442 Results 24hrs Laboratory Tests Test 10/11/18 12:35 10/11/18 17:27 10/11/18 21:02 10/12/18 01:10 Bedside Glucose 255 H 299 H 293 H 334 H Test 10/12/18 05:08 10/12/18 08:05 Bedside Glucose 328 H 298 H Exam/Review of Systems Exam Vitals Vital Signs Date Temp Pulse Resp B/P (MAP) Pulse Ox O2 O2 Flow FiO2 Time Delivery Rate 10/12/18 98.2 55 19 148/67 99 Room Air 08:00 (94) Intake and Output 10/11/18 10/11/18 10/12/18 1515:00 23:00 07:00 IntakeIntake Total 250 ml BalanceBalance 250 ml Exam Constitutional: alert, oriented, other (jaundiced) Respiratory: clear to auscultation Cardiovascular: nl pulses Gastrointestinal: soft, tender Musculoskeletal: nl extremities to inspection Extremities: normal pulses Neurological: nl mental status Results Results 24hrs Laboratory Tests Test 10/11/18 12:35 10/11/18 17:27 10/11/18 21:02 10/12/18 01:10 Bedside Glucose 255 H 299 H 293 H 334 H Test 10/12/18 05:08 10/12/18 08:05 Bedside Glucose 328 H 298 H Medications Medication Current Medications Ondansetron HCl (Zofran Inj) 4 mg Q6H PRN IV NAUSEA/VOMITING; Start 09/28/18 at 19:00 Ibuprofen (Motrin) 600 mg Q6H PRN PO .PAIN 1-3 Last administered on 10/11/18at 21:30; Admin Dose 600 MG; Start 09/28/18 at 19:00 Famotidine (Pepcid) 20 mg Q12 PO Last administered on 10/12/18 08:11; Admin Dose 20 MG; Start 09/28/18 at 21:00 Miscellaneous Information 1 ea NOTE XX ; Start 09/28/18 at 19:00 Glucose (Glutose) 15 gm Q15M PRN PO DECREASED GLUCOSE Last administered on 10/02/18at 01:50; Admin Dose 15 GM; Start 09/28/18 at 19:00 Glucose (Glutose) 22.5 gm Q15M PRN PO DECREASED GLUCOSE; Start 09/28/18 at 19:00 Dextrose (D50w Syringe) 25 ml Q15M PRN IV DECREASED GLUCOSE Last administered on 10/02/18at 07:43; Admin Dose 25 ML; Start 09/28/18 at 19:00 Dextrose (D50w Syringe) 50 ml Q15M PRN IV DECREASED GLUCOSE; Start 09/28/18 at 19:00 Glucagon (Glucagen) 1 mg Q15M PRN IM DECREASED GLUCOSE; Start 09/28/18 at 19:00 Glucose (Glutose) 15 gm Q15M PRN BUCCAL DECREASED GLUCOSE; Start 09/28/18 at 19:00 Diphenhydramine HCl (Benadryl) 25 mg Q6H PRN PO ITCHING Last administered on 10/08/18 02:28; Admin Dose 25 MG; Start 09/28/18 at 23:30 Diagnostic Test (Pha) (Accu-Chek) 1 ea 02 XX Last administered on 10/03/18at 02:15; Admin Dose 1 EA; Start 10/01/18 at 02:00 Hydroxyzine HCl (Atarax) 25 mg Q6H PRN PO ITCHING Last administered on 10/11/18 22:07; Admin Dose 25 MG; Start 10/02/18 at 11:00 Hydralazine HCl (Apresoline) 25 mg Q6H PRN PO ELEVATED BLOOD PRESSURE; Start 10/05/18 at 12:00 Metoclopramide HCl (Reglan) 5 mg TID PRN PO NAUSEA AND/OR VOMITING; Start 10/07/18 at 16:00 Megestrol Acetate (Megace Susp) 800 mg DAILY PO Last administered on 10/12/18 08:11; Admin Dose 800 MG; Start 10/08/18 at 09:00 Insulin Aspart (Novolog Insulin Pen) 8 unit WITH BREAKFAST LUNCH SC ; Start 10/12/18 at 08:00 Insulin Aspart (Novolog Insulin Pen) 10 unit WITH DINNER SC ; Start 10/12/18 at 18:05 Insulin Glargine (Lantus) 24 units DAILY@2000 SC Last administered on 10/11/18 21:07; Admin Dose 24 UNITS; Start 10/11/18 at 20:00 Diagnostic Test (Pha) (Accu-Chek) 1 ea AC MEALS AND BEDTIME XX Last administered on 10/12/18 08:07; Admin Dose 1 EA; Start 10/11/18 at 21:00 Diagnostic Test (Pha) (Accu-Chek) 1 ea 2 HOURS AFTER MEALS XX Last administered on 10/11/18 20:05; Admin Dose 1 EA; Start 10/11/18 at 20:05 Metformin HCl (Glucophage) 500 mg WITH DINNER NGT ; Start 10/12/18 at 18:05 Insulin Aspart (Novolog Insulin Pen) NOVOLOG *MILD* ALGORI... Q4 SC Last administered on 10/12/18 08:10; Admin Dose 4 UNIT; Start 10/12/18 at 01:00 EDWIN OCHOA Oct 12, 2018 10:45
[2018-10-12] MEDS ORDERED: INSULIN ASPART [NOVOLOG] 3 ML PEN SC SCH ×2 (12:00→18:05)
--- NOTE | 2018-10-12 12:21 | CONS ---
Assessment/Plan Assessment/Plan Hospital Course (Demo Recall) #Cholangiocarcinoma -f/u path reveals a Invasive well-differentiated adenocarcinoma. -MRCP done 07/27/18 reveals questionable filling defects in the left hepatic duct and stent in place. -09/20/[address] reveals FDG accumulation into the gallbladder fossa and into the anterior aspect of the liver both at the left and right hepatic lobes. a small anterior cardiophrenic LN is also noted -pt will likely needs a laparoscopy vs laparotomy to definitively determine if t he patient has resectable disease or not. Spoke with Dr. Harris and Dr. Estrada who are on board with this plan. THis is necessary so I as the oncologist can determine if patient can get definitive treatment vs palliative chemotherapy -pt has a well differentiated cancer and so there is a chance that if resected this could be controlled with adjuvant chemotherapy #Biliary Stricture -S/P ERCP 10/04 -old stent removed (it had migrated), 10-[place] 12 cm stent successfully deployed. #CM -continue current management #HTN -continue current management Thank you for the opportunity to participate in this patients care A total of 40 minutes of face to face time was spent speaking with the patient, of which greater than 50% was spent in counseling and coordination of care and the detailed question and answer session. Consultation Date/Type/Reason Admit Date/Time Sep 28, 2018 at 16:29 Initial Consult Date 10/06/18 Type of Consult oncology Reason for Consultation cholangiocarcinoma Requesting Provider: EDWIN OCHOA Date/Time of Note DATE: 10/12/18 TIME: 12:19 24 HR Interval Summary Free Text/Dictation no acute overnight events. abdominal pain is stable Exam/Review of Systems Exam Vitals Vital Signs Date Temp Pulse Resp B/P (MAP) Pulse Ox O2 O2 Flow FiO2 Time Delivery Rate 10/12/18 98.2 55 19 148/67 99 Room Air 08:00 (94) Intake and Output 10/11/18 10/11/18 10/12/18 1414:59 22:59 06:59 IntakeIntake Total 250 ml BalanceBalance 250 ml Constitutional: alert, oriented Psych: no complaints Head: normocephalic Eyes: nl conjunctiva ENMT: nl external ears & nose Neck: supple Respiratory: clear to auscultation Cardiovascular: regular rate and rhythm Gastrointestinal: soft Musculoskeletal: nl extremities to inspection Results Result Diagram: 10/10/18 0634 10/11/18 0442 Results 24hrs Laboratory Tests Test 10/11/18 12:35 10/11/18 17:27 10/11/18 21:02 10/12/18 01:10 Bedside Glucose 255 H 299 H 293 H 334 H Test 10/12/18 05:08 10/12/18 08:05 Bedside Glucose 328 H 298 H Medications Medication Current Medications Ondansetron HCl (Zofran Inj) 4 mg Q6H PRN IV NAUSEA/VOMITING; Start 09/28/18 at 19:00 Ibuprofen (Motrin) 600 mg Q6H PRN PO .PAIN 1-3 Last administered on 10/11/18 21:30; Admin Dose 600 MG; Start 09/28/18 at 19:00 Famotidine (Pepcid) 20 mg Q12 PO Last administered on 10/12/18 08:11; Admin Dose 20 MG; Start 09/28/18 at 21:00 Miscellaneous Information 1 ea NOTE XX ; Start 09/28/18 at 19:00 Glucose (Glutose) 15 gm Q15M PRN PO DECREASED GLUCOSE Last administered on 10/02/18at 01:50; Admin Dose 15 GM; Start 09/28/18 at 19:00 Glucose (Glutose) 22.5 gm Q15M PRN PO DECREASED GLUCOSE; Start 09/28/18 at 19:00 Dextrose (D50w Syringe) 25 ml Q15M PRN IV DECREASED GLUCOSE Last administered on 10/02/18at 07:43; Admin Dose 25 ML; Start 09/28/18 at 19:00 Dextrose (D50w Syringe) 50 ml Q15M PRN IV DECREASED GLUCOSE; Start 09/28/18 at 19:00 Glucagon (Glucagen) 1 mg Q15M PRN IM DECREASED GLUCOSE; Start 09/28/18 at 19:00 Glucose (Glutose) 15 gm Q15M PRN BUCCAL DECREASED GLUCOSE; Start 09/28/18 at 19:00 Diphenhydramine HCl (Benadryl) 25 mg Q6H PRN PO ITCHING Last administered on 10/08/18 02:28; Admin Dose 25 MG; Start 09/28/18 at 23:30 Diagnostic Test (Pha) (Accu-Chek) 1 ea 02 XX Last administered on 10/03/18at 02:15; Admin Dose 1 EA; Start 10/01/18 at 02:00 Hydroxyzine HCl (Atarax) 25 mg Q6H PRN PO ITCHING Last administered on 10/11/18 22:07; Admin Dose 25 MG; Start 10/02/18 at 11:00 Hydralazine HCl (Apresoline) 25 mg Q6H PRN PO ELEVATED BLOOD PRESSURE; Start 10/05/18 at 12:00 Metoclopramide HCl (Reglan) 5 mg TID PRN PO NAUSEA AND/OR VOMITING; Start 10/07/18 at 16:00 Megestrol Acetate (Megace Susp) 800 mg DAILY PO Last administered on 10/12/18 08:11; Admin Dose 800 MG; Start 10/08/18 at 09:00 Insulin Aspart (Novolog Insulin Pen) 8 unit WITH BREAKFAST LUNCH SC ; Start 10/12/18 at 08:00 Insulin Aspart (Novolog Insulin Pen) 10 unit WITH DINNER SC ; Start 10/12/18 at 18:05 Insulin Glargine (Lantus) 24 units DAILY@2000 SC Last administered on 10/11/18 21:07; Admin Dose 24 UNITS; Start 10/11/18 at 20:00 Diagnostic Test (Pha) (Accu-Chek) 1 ea AC MEALS AND BEDTIME XX Last administered on 10/12/18 08:07; Admin Dose 1 EA; Start 10/11/18 at 21:00 Diagnostic Test (Pha) (Accu-Chek) 1 ea 2 HOURS AFTER MEALS XX Last adminis tered on 10/11/18at 20:05; Admin Dose 1 EA; Start 10/11/18 at 20:05 Metformin HCl (Glucophage) 500 mg WITH DINNER NGT ; Start 10/12/18 at 18:05 Insulin Aspart (Novolog Insulin Pen) NOVOLOG *MILD* ALGORITHM WITH MEALS BEDTIME SC ; Start 10/12/18 at 12:00 FELY CARPENTER M.D. Oct 12, 2018 12:21
--- NOTE | 2018-10-12 13:44 | CONS ---
Assessment/Plan Assessment/Plan Problems: (1) Diabetes mellitus type 2 in nonobese Status: Chronic Comment: Sugars have gone up with usage of the steroids. On trying to cover for that. Metformin be helpful but the metformin is held due to recent administration of intravenous contrast. I will do what I can to compensate for that and get this balanced out in the next 2 days (2) Adenocarcinoma determined by biopsy of bile duct Status: Acute Comment: Please see oncology consultation note. The patient's can need some type of procedure if at the minimum of the biliary diversion procedure (3) Hyperlipidemia associated with type 2 diabetes mellitus Status: Chronic Comment: Noted as stated before no indication for treatment at this time (4) Essential hypertension Status: Chronic Comment: Adequate control. Consultation Date/Type/Reason Admit Date/Time Sep 28, 2018 at 16:29 Initial Consult Date 10/11/18 Type of Consult Endocrinology Reason for Consultation Diabetes mellitus type 2; status post 3 doses of steroids in the last 24 hours; cholangiocarcinoma with biliary obstruction; hypertension; hyperlipidemia; Requesting Provider: EDWIN OCHOA Date/Time of Note DATE: 10/12/18 TIME: 13:42 24 HR Interval Summary Free Text/Dictation Patient reports that she is feeling otherwise the same Detailed Summary Endocrine: polyuria Exam/Review of Systems Exam Vitals Vital Signs Date Temp Pulse Resp B/P (MAP) Pulse Ox O2 O2 Flow FiO2 Time Delivery Rate 10/12/18 98.2 55 19 148/67 99 Room Air 08:00 (94) Intake and Output 10/11/18 10/11/18 10/12/18 1414:59 22:59 06:59 IntakeIntake Total 250 ml BalanceBalance 250 ml Exam No change in examination Results Result Diagram: 10/10/18 0634 10/11/18 0442 Results 24hrs Laboratory Tests Test 10/11/18 17:27 10/11/18 21:02 10/12/18 01:10 10/12/18 05:08 Bedside Glucose 299 H 293 H 334 H 328 H Test 10/12/18 08:05 10/12/18 12:24 Bedside Glucose 298 H 402 *H Medications Medication Current Medications Ondansetron HCl (Zofran Inj) 4 mg Q6H PRN IV NAUSEA/VOMITING; Start 09/28/18 at 19:00 Ibuprofen (Motrin) 600 mg Q6H PRN PO .PAIN 1-3 Last administered on 10/11/18at 21:30; Admin Dose 600 MG; Start 09/28/18 at 19:00 Famotidine (Pepcid) 20 mg Q12 PO Last administered on 10/12/18at 08:11; Admin Dose 20 MG; Start 09/28/18 at 21:00 Miscellaneous Information 1 ea NOTE XX ; Start 09/28/18 at 19:00 Glucose (Glutose) 15 gm Q15M PRN PO DECREASED GLUCOSE Last administered on 10/02/18at 01:50; Admin Dose 15 GM; Start 09/28/18 at 19:00 Glucose (Glutose) 22.5 gm Q15M PRN PO DECREASED GLUCOSE; Start 09/28/18 at 19:00 Dextrose (D50w Syringe) 25 ml Q15M PRN IV DECREASED GLUCOSE Last administered on 10/02/18at 07:43; Admin Dose 25 ML; Start 09/28/18 at 19:00 Dextrose (D50w Syringe) 50 ml Q15M PRN IV DECREASED GLUCOSE; Start 09/28/18 at 19:00 Glucagon (Glucagen) 1 mg Q15M PRN IM DECREASED GLUCOSE; Start 09/28/18 at 19:00 Glucose (Glutose) 15 gm Q15M PRN BUCCAL DECREASED GLUCOSE; Start 09/28/18 at 19:00 Diphenhydramine HCl (Benadryl) 25 mg Q6H PRN PO ITCHING Last administered on 10/08/18at 02:28; Admin Dose 25 MG; Start 09/28/18 at 23:30 Diagnostic Test (Pha) (Accu-Chek) 1 ea 02 XX Last administered on 10/03/18at 02:15; Admin Dose 1 EA; Start 10/01/18 at 02:00 Hydroxyzine HCl (Atarax) 25 mg Q6H PRN PO ITCHING Last administered on 10/11/18at 22:07; Admin Dose 25 MG; Start 10/02/18 at 11:00 Hydralazine HCl (Apresoline) 25 mg Q6H PRN PO ELEVATED BLOOD PRESSURE; Start 10/05/18 at 12:00 Metoclopramide HCl (Reglan) 5 mg TID PRN PO NAUSEA AND/OR VOMITING; Start 10/07/18 at 16:00 Megestrol Acetate (Megace Susp) 800 mg DAILY PO Last administered on 10/12/18 08:11; Admin Dose 800 MG; Start 10/08/18 at 09:00 Insulin Aspart (Novolog Insulin Pen) 8 unit WITH BREAKFAST LUNCH SC Last administered on 10/12/18at 12:29; Admin Dose 8 UNIT; Start 10/12/18 at 08:00 Insulin Aspart (Novolog Insulin Pen) 10 unit WITH DINNER SC ; Start 10/12/18 at 18:05 Insulin Glargine (Lantus) 24 units DAILY@2000 SC Last administered on 10/11/18 21:07; Admin Dose 24 UNITS; Start 10/11/18 at 20:00 Diagnostic Test (Pha) (Accu-Chek) 1 ea AC MEALS AND BEDTIME XX Last administered on 10/12/18 12:26; Admin Dose 1 EA; Start 10/11/18 at 21:00 Diagnostic Test (Pha) (Accu-Chek) 1 ea 2 HOURS AFTER MEALS XX Last administered on 10/11/18 20:05; Admin Dose 1 EA; Start 10/11/18 at 20:05 Metformin HCl (Glucophage) 500 mg WITH DINNER NGT ; Start 10/12/18 at 18:05; Status Future hold Insulin Aspart (Novolog Insulin Pen) NOVOLOG *MILD* ALGORITHM WITH MEALS BEDTIME SC Last administered on 10/12/18 12:30; Admin Dose 7 UNIT; Start 10/12/18 at 12:00 TAO WEISS MD Oct 12, 2018 13:44
--- NOTE | 2018-10-12 13:45 | CONS ---
Assessment/Plan Assessment/Plan Assessment/Plan (Daily) Interval hx: LFTs wnl except alk which is trending down. WBC wnl. Hgb stable. Continues to c/o itching. CT of abd with contrast ordered today by Dr. Main. BM qd, brown and soft. No nausea. Abd pain improved. 1. Abnormal LFT with significant weight loss, most probably related to cholangiocarcinoma. 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 Diabetes mellitus. 3. Hypertension. 4. Nicotine usage. 5. Biliary stricture 6. S/P ERCP 10/04 -old stent removed (it had migrated), 10-[place] 12 cm stent successfully deployed. -purulent matter and stones -stricture and neovascularization identified in common hepatic duct Prelim pathology 10/03: Common hepatic duct, biopsy: -- Dysplastic epithelium showing infiltrative patterns, suspicious for adenocarcinoma PLAN: Heme onc, hepatobiliary surgeon Optimize blood sugar Reglan 5 mg PO TID PRN anti emetics Pain management Observe for worsening of symptoms Monitor LFT and WBC closely Discussed with Dr. Andino. Awaiting for the CT scan three-phase studies if negative then patient may need surgery. Consultation Date/Type/Reason Admit Date/Time Sep 28, 2018 at 16:29 Initial Consult Date Requesting Provider: EDWIN OCHOA Date/Time of Note DATE: 10/12/18 TIME: 13:43 24 HR Interval Summary Constitutional: no complaints, improved Exam/Review of Systems Exam Vitals Vital Signs Date Temp Pulse Resp B/P (MAP) Pulse Ox O2 O2 Flow FiO2 Time Delivery Rate 10/12/18 98.2 55 19 148/67 99 Room Air 08:00 (94) Intake and Output 10/11/18 10/11/18 10/12/18 1515:00 23:00 07:00 IntakeIntake Total 250 ml BalanceBalance 250 ml Constitutional: alert, oriented, well developed Psych: no complaints, nl mood/affect Head: normocephalic, atraumatic Eyes: nl conjunctiva, EOMI, nl lids, nl sclera, PERRL ENMT: nl external ears & nose, nl lips & teeth, nl nasal mucosa & septum Neck: supple, non-tender Respiratory: clear to auscultation, normal air movement Cardiovascular: regular rate and rhythm, nl pulses Gastrointestinal: soft, nl liver, spleen, non-tender Musculoskeletal: nl extremities to inspection, nl gait and stance Extremities: normal pulses Neurological: [employer] II-XII intact, nl mental status, nl speech, nl strength Skin: nl turgor; No rash or lesions Lymph: nl lymph nodes Results Result Diagram: 10/10/18 0634 10/11/18 0442 Results 24hrs Laboratory Tests Test 10/11/18 17:27 10/11/18 21:02 10/12/18 01:10 10/12/18 05:08 Bedside Glucose 299 H 293 H 334 H 328 H Test 10/12/18 08:05 10/12/18 12:24 Bedside Glucose 298 H 402 *H Medications Medication Current Medications Ondansetron HCl (Zofran Inj) 4 mg Q6H PRN IV NAUSEA/VOMITING; Start 09/28/18 at 19:00 Ibuprofen (Motrin) 600 mg Q6H PRN PO .PAIN 1-3 Last administered on 10/11/18at 21:30; Admin Dose 600 MG; Start 09/28/18 at 19:00 Famotidine (Pepcid) 20 mg Q12 PO Last administered on 10/12/18at 08:11; Admin Dose 20 MG; Start 09/28/18 at 21:00 Miscellaneous Information 1 ea NOTE XX ; Start 09/28/18 at 19:00 Glucose (Glutose) 15 gm Q15M PRN PO DECREASED GLUCOSE Last administered on 10/02/18at 01:50; Admin Dose 15 GM; Start 09/28/18 at 19:00 Glucose (Glutose) 22.5 gm Q15M PRN PO DECREASED GLUCOSE; Start 09/28/18 at 19:00 Dextrose (D50w Syringe) 25 ml Q15M PRN IV DECREASED GLUCOSE Last administered on 10/02/18at 07:43; Admin Dose 25 ML; Start 09/28/18 at 19:00 Dextrose (D50w Syringe) 50 ml Q15M PRN IV DECREASED GLUCOSE; Start 09/28/18 at 19:00 Glucagon (Glucagen) 1 mg Q15M PRN IM DECREASED GLUCOSE; Start 09/28/18 at 19:00 Glucose (Glutose) 15 gm Q15M PRN BUCCAL DECREASED GLUCOSE; Start 09/28/18 at 19:00 Diphenhydramine HCl (Benadryl) 25 mg Q6H PRN PO ITCHING Last administered on 10/08/18 02:28; Admin Dose 25 MG; Start 09/28/18 at 23:30 Diagnostic Test (Pha) (Accu-Chek) 1 ea 02 XX Last administered on 10/03/18at 02:15; Admin Dose 1 EA; Start 10/01/18 at 02:00 Hydroxyzine HCl (Atarax) 25 mg Q6H PRN PO ITCHING Last administered on 10/11/18 22:07; Admin Dose 25 MG; Start 10/02/18 at 11:00 Hydralazine HCl (Apresoline) 25 mg Q6H PRN PO ELEVATED BLOOD PRESSURE; Start 10/05/18 at 12:00 Metoclopramide HCl (Reglan) 5 mg TID PRN PO NAUSEA AND/OR VOMITING; Start 10/07/18 at 16:00 Megestrol Acetate (Megace Susp) 800 mg DAILY PO Last administered on 10/12/18 08:11; Admin Dose 800 MG; Start 10/08/18 at 09:00 Insulin Aspart (Novolog Insulin Pen) 8 unit WITH BREAKFAST LUNCH SC Last administered on 10/12/18 12:29; Admin Dose 8 UNIT; Start 10/12/18 at 08:00 Insulin Aspart (Novolog Insulin Pen) 10 unit WITH DINNER SC ; Start 10/12/18 at 18:05 Diagnostic Test (Pha) (Accu-Chek) 1 ea AC MEALS AND BEDTIME XX Last administered on 10/12/18 12:26; Admin Dose 1 EA; Start 10/11/18 at 21:00 Diagnostic Test (Pha) (Accu-Chek) 1 ea 2 HOURS AFTER MEALS XX Last administered on 10/11/18 20:05; Admin Dose 1 EA; Start 10/11/18 at 20:05 Metformin HCl (Glucophage) 500 mg WITH DINNER NGT ; Start 10/12/18 at 18:05; Status Future hold Insulin Aspart (Novolog Insulin Pen) NOVOLOG *MILD* ALGORITHM WITH MEALS BEDTIME SC Last administered on 10/12/18 12:30; Admin Dose 7 UNIT; Start 10/12/18 at 12:00 Insulin Glargine (Lantus) 32 units DAILY@2000 SC ; Start 10/12/18 at 20:00; Status UNV Insulin Human NPH (Humulin N) 10 unit ONCE ONCE SC ; Start 10/12/18 at 14:00; Stop 10/12/18 at 14:01; Status UNV REBECCA HUSTON MD Oct 12, 2018 13:45
[2018-10-12 14:00] VITALS: BP 124/59; PULSE 56; RESP 18
[2018-10-12] MEDS ORDERED: NPH, HUMAN INSULIN ISOPHANE 3ML VIAL SC ONE ×2 (15:00→22:30)
--- NOTE | 2018-10-12 16:36 | PN ---
DATE: 10/12/2018 SUBJECTIVE: No specific complaint. Actually today, the patient had CT scan with hepatic protocol done, but the report is not available yet. Today also the report of pathology which was a biopsy of the common hepatic duct which was sent to the [facility] Department of Pathology by the Department of the Pathology here is back and the conclusion diagnosis is invasive, well-differentiated adenocarcinoma. This was read by Dr. Christiane Souza and associate professor of english at [facility]. PLAN: We are going to see report along with Dr. Harris and radiologist reviewed it and Dr. Harris is going to make a final decision in regards to the possible plan for surgical intervention for this patient or any other approach. Dictated By: RENITA VIRK MD PS/NTS Conf#: [id number] DID#: [id number] CC: REBECCA HUSTON MD; MARY ENGLE MD;*EndCC* MTDD
[2018-10-12] MEDS ORDERED: metFORMIN 500 MG TAB NGT SCH (18:05)
[2018-10-12] MEDS ORDERED: INSULIN GLARGINE [LANTus] (100 UNITS/ML) SYG SC SCH ×2 (20:00)
[2018-10-12] MEDS: hydrOXYzine HCL 25 MG TAB PO PRN (20:38)
[2018-10-12 21:07] VITALS: BP 147/67; PULSE 72; RESP 20
[2018-10-13] MEDS: ACCU-CHEK XX SCH ×6 (02:58→17:37)
[2018-10-13] MEDS: IBUPROFEN 600 MG TAB PO PRN (03:01)
[2018-10-13] MEDS: hydrOXYzine HCL 25 MG TAB PO PRN (03:01)
[2018-10-13 03:28] VITALS: BP 128/61; PULSE 56; RESP 20
[2018-10-13] MEDS: INSULIN ASPART [NOVOLOG] 3 ML PEN SC SCH ×6 (08:24→17:37)
[2018-10-13] MEDS: MEGESTROL (40 MG/ML) 10ML CUP PO SCH (08:26)
[2018-10-13] MEDS: FAMOTIDINE 20 MG TAB PO SCH (08:26)
[2018-10-13 08:44] VITALS: BP 127/64; PULSE 61; RESP 20
[2018-10-13 14:46] VITALS: BP 120/58; PULSE 67; RESP 18
--- NOTE | 2018-10-13 15:09 | CONS ---
Assessment/Plan Assessment/Plan Hospital Course (Demo Recall) #Cholangiocarcinoma -f/u path reveals a Invasive well-differentiated adenocarcinoma. -MRCP done 07/27/18 reveals questionable filling defects in the left hepatic duct and stent in place. -09/20/[address] reveals FDG accumulation into the gallbladder fossa and into the anterior aspect of the liver both at the left and right hepatic lobes. a small anterior cardiophrenic LN is also noted -pt has been evaluated by surgery who recommends to start chemotherapy, which we will do as an out patient #Biliary Stricture -S/P ERCP 10/04 -old stent removed (it had migrated), 10-[place] 12 cm stent successfully deployed. #CM -continue current management #HTN -continue current management Thank you for the opportunity to participate in this patients care A total of 40 minutes of face to face time was spent speaking with the patient, of which greater than 50% was spent in counseling and coordination of care and the detailed question and answer session. Consultation Date/Type/Reason Admit Date/Time Sep 28, 2018 at 16:29 Initial Consult Date 10/06/18 Type of Consult oncology Reason for Consultation cholangiocarcinoma Requesting Provider: EDWIN OCHOA Date/Time of Note DATE: 10/13/18 TIME: 15:07 24 HR Interval Summary Free Text/Dictation pt has been evaluated by surgery who recommends neoadjuvant chemotherapy Exam/Review of Systems Exam Vitals Vital Signs Date Temp Pulse Resp B/P (MAP) Pulse Ox O2 O2 Flow FiO2 Time Delivery Rate 10/13/18 98.6 67 18 120/58 100 Room Air 14:46 (78) Intake and Output 10/12/18 10/12/18 10/13/18 1515:00 23:00 07:00 IntakeIntake Total 210 ml 2400 ml 1500 ml OutputOutput Total 1 ml BalanceBalance 210 ml 2400 ml 1499 ml Constitutional: alert, oriented Psych: no complaints Head: normocephalic Eyes: nl conjunctiva ENMT: nl external ears & nose Neck: supple Respiratory: clear to auscultation Cardiovascular: regular rate and rhythm Gastrointestinal: soft Musculoskeletal: nl extremities to inspection Results Result Diagram: 10/10/18 0634 10/13/18 0553 Results 24hrs Laboratory Tests Test 10/12/18 15:31 10/12/18 17:30 10/12/18 20:17 10/12/18 22:10 Bedside Glucose 476 *H 459 *H 420 *H 432 *H Test 10/12/18 22:11 10/13/18 02:51 10/13/18 05:53 10/13/18 08:01 Bedside Glucose 430 *H 344 H 222 H Sodium Level 143 Potassium Level 4.5 Chloride Level 102 Carbon Dioxide Level 25 Anion Gap 16 H Blood Urea Nitrogen 19 Creatinine 0.48 Est Glomerular > 60 Filtrat Rate mL/min Glucose Level 276 H Calcium Level 10.2 Total Bilirubin 0.6 Direct Bilirubin 0.00 Indirect Bilirubin 0.6 Aspartate Amino 65 H Transf (AST/SGOT) Alanine 75 H Aminotransferase (AL T/SGPT) Alkaline Phosphatase 430 H Total Protein 8.2 H Albumin 3.7 Globulin 4.50 H Albumin/Globulin 0.82 Ratio Test 10/13/18 10:44 10/13/18 12:17 10/13/18 14:35 Bedside Glucose 199 124 185 Medications Medication Current Medications Ondansetron HCl (Zofran Inj) 4 mg Q6H PRN IV NAUSEA/VOMITING; Start 09/28/18 at 19:00 Ibuprofen (Motrin) 600 mg Q6H PRN PO .PAIN 1-3 Last administered on 10/13/18at 03:01; Admin Dose 600 MG; Start 09/28/18 at 19:00 Famotidine (Pepcid) 20 mg Q12 PO Last administered on 10/13/18at 08:26; Admin Dose 20 MG; Start 09/28/18 at 21:00 Miscellaneous Information 1 ea NOTE XX ; Start 09/28/18 at 19:00 Glucose (Glutose) 15 gm Q15M PRN PO DECREASED GLUCOSE Last administered on 10/02/18at 01:50; Admin Dose 15 GM; Start 09/28/18 at 19:00 Glucose (Glutose) 22.5 gm Q15M PRN PO DECREASED GLUCOSE; Start 09/28/18 at 19:00 Dextrose (D50w Syringe) 25 ml Q15M PRN IV DECREASED GLUCOSE Last administered on 10/02/18at 07:43; Admin Dose 25 ML; Start 09/28/18 at 19:00 Dextrose (D50w Syringe) 50 ml Q15M PRN IV DECREASED GLUCOSE; Start 09/28/18 at 19:00 Glucagon (Glucagen) 1 mg Q15M PRN IM DECREASED GLUCOSE; Start 09/28/18 at 19:00 Glucose (Glutose) 15 gm Q15M PRN BUCCAL DECREASED GLUCOSE; Start 09/28/18 at 19:00 Diphenhydramine HCl (Benadryl) 25 mg Q6H PRN PO ITCHING Last administered on 02:28; Admin Dose 25 MG; Start 09/28/18 at 23:30 Diagnostic Test (Pha) (Accu-Chek) 1 ea 02 XX Last administered on 10/13/18 02:58; Admin Dose 1 EA; Start 10/01/18 at 02:00 Hydroxyzine HCl (Atarax) 25 mg Q6H PRN PO ITCHING Last administered on 10/13/18 03:01; Admin Dose 25 MG; Start 10/02/18 at 11:00 Hydralazine HCl (Apresoline) 25 mg Q6H PRN PO ELEVATED BLOOD PRESSURE; Start 10/05/18 at 12:00 Metoclopramide HCl (Reglan) 5 mg TID PRN PO NAUSEA AND/OR VOMITING; Start 10/07/18 at 16:00 Megestrol Acetate (Megace Susp) 800 mg DAILY PO Last administered on 10/13/18 08:26; Admin Dose 800 MG; Start 10/08/18 at 09:00 Diagnostic Test (Pha) (Accu-Chek) 1 ea AC MEALS AND BEDTIME XX Last administered on 10/13/18 12:18; Admin Dose 1 EA; Start 10/11/18 at 21:00 Diagnostic Test (Pha) (Accu-Chek) 1 ea 2 HOURS AFTER MEALS XX Last administered on 10/13/18at 14:46; Admin Dose 1 EA; Start 10/11/18 at 20:05 Metformin HCl (Glucophage) 500 mg WITH DINNER NGT ; Start 10/12/18 at 18:05; Status Hold Insulin Aspart (Novolog Insulin Pen) 16 unit AC MEALS SC Last administered on 10/13/18 12:18; Admin Dose 16 UNIT; Start 10/12/18 at 17:35 Insulin Glargine (Lantus) 40 units DAILY@2000 SC Last administered on 10/12/18 20:33; Admin Dose 40 UNITS; Start 10/12/18 at 20:00 Insulin Aspart (Novolog Insulin Pen) NOVOLOG *MODERATE* ALGORITHM WITH MEALS BEDTIME SC Last administered on 10/13/18at 08:25; Admin Dose 6 UNIT; Start 10/12/18 at 18:05 FELY CARPENTER M.D. Oct 13, 2018 15:08
--- NOTE | 2018-10-13 18:00 | PN ---
DATE: 10/13/2018 SUBJECTIVE: No specific complaint. Actually yesterday, the patient had abdominal CT scan with contrast utilizing the hepatic protocol and the result is back now in the computer. I reviewed the result. I notified Dr. Harris of the report. PHYSICAL EXAMINATION: GENERAL: Awake, alert, oriented. VITAL SIGNS: Temperature 98.6, heart rate 61, respiration 18, blood pressure 127/54, saturation 100% on room air. HEART: Regular. LUNGS: Clear. ABDOMEN: Soft. Minimal tenderness in right upper quadrant. EXTREMITIES: Lower extremities: No calf tenderness. No pitting edema. ASSESSMENT: This is a 58-year-old female who has been having problem with abdominal pain right upper quadrant and problems related to the liver since 06/2018. Eventually, she was found to have jaundice in the past 3 weeks ago and was admitted for further evaluation of jaundice. This was evaluated and ERCP was performed by Dr. Estrada, previous stent which has been left in place in 06/2018 at [facility], had migrated and had caused obstruction of the bile passage, so it was removed and new stent was placed, #10-Zimbabwean [address] Estrada found stenosed narrowing of the common hepatic duct. Biopsy was taken from that one and then specimen was sent to pathology department here and later on from here was sent to pathology department at [facility]. The report came back last night and unfortunately, this is adenocarcinoma they have mentioned possibly from biliary tree and/or per CT scan, possibly could be from also gallbladder. Dr. Harris, the admitting surgeon, admitted the patient for evaluation of the jaundice, knows about the pathology and he recommended that the patient will be seen as already has been seen by Dr. Rivera, so that Dr. Rivera can start the patient on neoadjuvant chemotherapy and later on, he will follow the patient in the office and probably at proper time he will decide to proceed with cholecystectomy or any kind of surgery which probably would be appropriate for this patient. I discussed with the patient in full detail the final diagnoses and findings and the fact that the patient is going to be discharged from surgical care today to be advised by Dr. Rivera for chemotherapy and Dr. Engle also internal medicine service is following the patient. We will see the patient later on and we will make the arrangement for discharging the patient. The patient was advised to call Dr. Harris' office and make an appointment for 2 weeks from now in the office not following this Wednesday, but the next Wednesday. Dictated By: RENITA VIRK MD PS/NTS Conf#: [id number] DID#: [id number] CC: MARY ENGLE MD; REBECCA ESTRADA MD;*EndCC* MTDD
--- NOTE | 2018-10-13 18:29 | PDOCDIS ---
Discharge Instructions CONDITION [id number] Patient Condition: [id number] Good HOME CARE INSTRUCTIONS: [id number] Diet Instructions: [id number] Regular ACTIVITY: [id number] Activity Restrictions: Aaxbo6i No Restrictions FOLLOW UP/APPOINTMENTS Follow-up Plan Dr. Rivera next week PMD next week MARY ENGLE MD Oct 13, 2018 18:29
[2018-10-13] MEDS ORDERED: Insulin Glargine SC (18:33)
[2018-10-13] MEDS ORDERED: NOVO3I SC (18:33)
--- NOTE | 2018-10-13 19:00 | CONS ---
Assessment/Plan Assessment/Plan Assessment/Plan (Daily) 1. Abnormal LFT with significant weight loss, most probably related to cholangiocarcinoma. 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 Diabetes mellitus. 3. Hypertension. 4. Nicotine usage. 5. Biliary stricture 6. S/P ERCP 10/04 -old stent removed (it had migrated), 10-Bahamian 12 cm stent successfully deployed. -purulent matter and stones -stricture and neovascularization identified in common hepatic duct Prelim pathology 10/03: Common hepatic duct, biopsy: -- Dysplastic epithelium showing infiltrative patterns, suspicious for adenocarcinoma PLAN: Heme onc, hepatobiliary surgeon Optimize blood sugar Reglan 5 mg PO TID PRN anti emetics Pain management Observe for worsening of symptoms Monitor LFT and WBC closely Discussed with Dr. Andino. Awaiting for the CT scan three-phase studies if negative then patient may need surgery. CAT scan of the abdomen pelvis negative for any metastases in the liver. Patient needs team approach both the surgical and oncology follow-up Consultation Date/Type/Reason Admit Date/Time Sep 28, 2018 at 16:29 Initial Consult Date Requesting Provider: EDWIN COHOA Date/Time of Note DATE: 10/13/18 TIME: 18:59 24 HR Interval Summary Constitutional: no complaints, improved Exam/Review of Systems Exam Vitals Vital Signs Date Temp Pulse Resp B/P (MAP) Pulse Ox O2 O2 Flow FiO2 Time Delivery Rate 10/13/18 98.6 67 18 120/58 100 Room Air 14:46 (78) Intake and Output 10/12/18 10/12/18 10/13/18 1414:59 22:59 06:59 IntakeIntake Total 210 ml 2400 ml 1500 ml OutputOutput Total 1 ml BalanceBalance 210 ml 2400 ml 1499 ml Constitutional: alert, oriented, well developed Psych: no complaints, nl mood/affect Head: normocephalic, atraumatic Eyes: nl conjunctiva, EOMI, nl lids, nl sclera, PERRL ENMT: nl external ears & nose, nl lips & teeth, nl nasal mucosa & septum Neck: supple, non-tender Respiratory: clear to auscultation, normal air movement Cardiovascular: regular rate and rhythm, nl pulses Gastrointestinal: soft, nl liver, spleen, non-tender Musculoskeletal: nl extremities to inspection, nl gait and stance Extremities: normal pulses Neurological: GEM EXPERT II-XII intact, nl mental status, nl speech, nl strength Skin: nl turgor; No rash or lesions Lymph: nl lymph nodes Results Result Diagram: 10/10/18 0634 10/13/18 0553 Results 24hrs Laboratory Tests Test 10/12/18 20:17 10/12/18 22:10 10/12/18 22:11 10/13/18 02:51 Bedside Glucose 420 *H 432 *H 430 *H 344 H Test 10/13/18 05:53 10/13/18 08:01 10/13/18 10:44 10/13/18 12:17 Sodium Level 143 Potassium Level 4.5 Chloride Level 102 Carbon Dioxide Level 25 Anion Gap 16 H Blood Urea Nitrogen 19 Creatinine 0.48 Est Glomerular > 60 Filtrat Rate mL/min Glucose Level 276 H Calcium Level 10.2 Total Bilirubin 0.6 Direct Bilirubin 0.00 Indirect Bilirubin 0.6 Aspartate Amino 65 H Transf (AST/SGOT) Alanine 75 H Aminotransferase (AL T/SGPT) Alkaline Phosphatase 430 H Total Protein 8.2 H Albumin 3.7 Globulin 4.50 H Albumin/Globulin 0.82 Ratio Bedside Glucose 222 H 199 124 Test 10/13/18 14:35 10/13/18 17:33 Bedside Glucose 185 177 Medications Medication Current Medications Ondansetron HCl (Zofran Inj) 4 mg Q6H PRN IV NAUSEA/VOMITING; Start 09/28/18 at 19:00 Ibuprofen (Motrin) 600 mg Q6H PRN PO .PAIN 1-3 Last administered on 10/13/18at 03:01; Admin Dose 600 MG; Start 09/28/18 at 19:00 Famotidine (Pepcid) 20 mg Q12 PO Last administered on 10/13/18at 08:26; Admin Dose 20 MG; Start 09/28/18 at 21:00 Miscellaneous Information 1 ea NOTE XX ; Start 09/28/18 at 19:00 Glucose (Glutose) 15 gm Q15M PRN PO DECREASED GLUCOSE Last administered on 10/02at 01:50; Admin Dose 15 GM; Start 09/28/18 at 19:00 Glucose (Glutose) 22.5 gm Q15M PRN PO DECREASED GLUCOSE; Start 09/28/18 at 19:00 Dextrose (D50w Syringe) 25 ml Q15M PRN IV DECREASED GLUCOSE Last administered on 10/02/18 07:43; Admin Dose 25 ML; Start 09/28/18 at 19:00 Dextrose (D50w Syringe) 50 ml Q15M PRN IV DECREASED GLUCOSE; Start 09/28/18 at 19:00 Glucagon (Glucagen) 1 mg Q15M PRN IM DECREASED GLUCOSE; Start 09/28/18 at 19:00 Glucose (Glutose) 15 gm Q15M PRN BUCCAL DECREASED GLUCOSE; Start 09/28/18 at 19:00 Diphenhydramine HCl (Benadryl) 25 mg Q6H PRN PO ITCHING Last administered on 10/08/18 02:28; Admin Dose 25 MG; Start 09/28/18 at 23:30 Diagnostic Test (Pha) (Accu-Chek) 1 ea 02 XX Last administered on 10/13/18 02:58; Admin Dose 1 EA; Start 10/01/18 at 02:00 Hydroxyzine HCl (Atarax) 25 mg Q6H PRN PO ITCHING Last administered on 10/13/18 03:01; Admin Dose 25 MG; Start 10/02/18 at 11:00 Hydralazine HCl (Apresoline) 25 mg Q6H PRN PO ELEVATED BLOOD PRESSURE; Start 10/05/18 at 12:00 Metoclopramide HCl (Reglan) 5 mg TID PRN PO NAUSEA AND/OR VOMITING; Start 10/07/18 at 16:00 Megestrol Acetate (Megace Susp) 800 mg DAILY PO Last administered on 10/13/18 08:26; Admin Dose 800 MG; Start 10/08/18 at 09:00 Diagnostic Test (Pha) (Accu-Chek) 1 ea AC MEALS AND BEDTIME XX Last administered on 10/13/18at 17:37; Admin Dose 1 EA; Start 10/11/18 at 21:00 Diagnostic Test (Pha) (Accu-Chek) 1 ea 2 HOURS AFTER MEALS XX Last administered on 10/13/18at 14:46; Admin Dose 1 EA; Start 10/11/18 at 20:05 Metformin HCl (Glucophage) 500 mg WITH DINNER NGT ; Start 10/12/18 at 18:05; S tatus Hold Insulin Aspart (Novolog Insulin Pen) 16 unit AC MEALS SC Last administered on 10/13/18at 17:36; Admin Dose 16 UNIT; Start 10/12/18 at 17:35 Insulin Glargine (Lantus) 40 units DAILY@2000 SC Last administered on 10/12/18at 20:33; Admin Dose 40 UNITS; Start 10/12/18 at 20:00 Insulin Aspart (Novolog Insulin Pen) NOVOLOG *MODERATE* ALGORITHM WITH MEALS BEDTIME SC Last administered on 10/13/18at 17:37; Admin Dose 2 UNIT; Start 10/12/18 at 18:05 REBECCA HUSTON MD Oct 13, 2018 19:00
== END 2018-10-13 19:15 | disposition home or self-care (01) | DRG 435 ==
LOC: E/R 12:49 → PP2 16:29
PROVIDERS: ADMIT Internal Medicine; ATTEND Internal Medicine
PROC: 0F798DZ Dilation of Common Bile Duct with Intraluminal Device, Via Natural or Artificial Opening Endoscopic (ICD-10-PCS; 2018-10-03)
PROC: 0FC98ZZ Extirpation of Matter from Common Bile Duct, Via Natural or Artificial Opening Endoscopic (ICD-10-PCS; 2018-10-03)
PROC: 0FPB8DZ Removal of Intraluminal Device from Hepatobiliary Duct, Via Natural or Artificial Opening Endoscopic (ICD-10-PCS; 2018-10-03)
PROC: 0FB78ZX Excision of Common Hepatic Duct, Via Natural or Artificial Opening Endoscopic, Diagnostic (ICD-10-PCS; principal; 2018-10-03 16:00)
DX: C22.1 Intrahepatic bile duct carcinoma (principal); K83.1 Obstruction of bile duct; K83.09 Other cholangitis; T85.520A Displacement of bile duct prosthesis, initial encounter; E11.8 Type 2 diabetes mellitus with unspecified complications; I10 Essential (primary) hypertension; F17.200 Nicotine dependence, unspecified, uncomplicated; E78.5 Hyperlipidemia, unspecified; E11.65 Type 2 diabetes mellitus with hyperglycemia; Y83.8 Other surgical procedures as the cause of abnormal reaction of the patient, or of later complication, without mention of misadventure at the time of the procedure; Z79.4 Long term (current) use of insulin
CPT/HCPCS: 36415; 71045; 74018; 74178; 74181; 74330; 76705; 78226; 80048; 80053; 80061; 80076; 82962; 83036; 83690; 85025; 85610; 85730; 88305; 93005; 96361; 96374; A9537; C2617; J1100; J1200; J1720; J1815; J1956; J2405; J3010; J7030; J7040; J7042; J7509; Q9967